=== PATIENT | male | born 1940 | race Caucasian/White ===

== ENCOUNTER 2023-09-28 12:30 | Outpatient (REF) | payer MEDICARE, SELFPAY ==
[2023-09-28 13:49] LABS: Free T3 2.15 pg/mL (2.18-3.98)
== END 2023-09-28 12:31 | disposition home or self-care (01) ==
LOC: LAB 12:30
PROVIDERS: PCP Family Medicine; Visit Provider Family Medicine
DX: E03.9 Hypothyroidism, unspecified (principal)
CPT/HCPCS: 36415; 84481

== ENCOUNTER 2024-01-20 13:55 | Outpatient (OUT) | payer MEDICARE, SELFPAY ==
--- OUTSIDE RECORDS SUMMARY | 2024-01-20 14:03 | XMS_ITS | CCD ---
Author Organization [facility] Care Team Providers Care Employee Relations Assistant Name Role Phone PHYSICIAN, DEFAULT Unavailable Unavailable PHYSICIAN, DEFAULT Unavailable Unavailable PHYSICIAN, DEFAULT Unavailable Unavailable PHYSICIAN, DEFAULT Unavailable Unavailable TASHAY ., DR ARORA Attending Unavailable HOY ., DR ARORA Primary Care Unavailable HOY ., DR ARORA Admitting Unavailable HOY ., DR ARORA Admitting Unavailable HOY ., DR ARORA Attending Unavailable HOY ., DR ARORA Consulting Unavailable HOY ., DR ARORA Primary Care Unavailable Unavailable Primary Care Provider JUDITH Wang Referring Unavailab KRISTIN Cooley Attending Unavailable Medications Current Medications Medication Drug Class(es) Dates Sig (Normalized) Sig (Original) benoxinate hydrochloride 4 mg/ml / fluorescein sodium 3 mg/ml ophthalmic solution (1 source) Diagnostic Dye Start: 11-12-2023 End: 11-12-2023 fluorescein-benoxi leslie 0.3-0.4 % 1 Drop (FLURESS) phenylephrine hydrochloride 25 mg/ml ophthalmic solution (1 source) alpha-1 Adrenergic Agonist Start: 11-12-2023 End: 11-12-2023 PHENYLephrine 2.5 % 1 Drop (AK-DILATE, YUNI-SYNEPHRINE) proparacaine hydrochloride 5 mg/ml ophthalmic solution (1 source) Local Anesthetic Start: 11-12-2023 End: 11-12-2023 proparacaine 0.5 % 1 Drop (ALCAINE) tropicamide 10 mg/ml ophthalmic solution (1 source) Anticholinergic Start: 11-12-2023 End: 11-12-2023 tropicamide 1 % 1 Drop (MYDRIACYL) Completed/Discontinued Medications Medication Drug Class(es) Dates Sig (Normalized) Sig (Original) allopurinol 300 mg oral tablet (1 source) Xanthine Oxidase Inhibitor take 1 tablet by mouth once daily allopurinol (ZYLOPRIM) 300 mg tablet Take 300 mg by mouth once daily. 0 Active Comment on above: Take 300 mg by mouth once daily. apixaban 5 mg oral tablet (1 source) Factor Xa Inhibitor apixaban (ELIQUIS) 5 mg tab(s) Take by mouth two times a day. 0 Active Comment on above: Take by mouth two ti mes a day. Aspirin (1 source) Platelet Aggregation Inhibitor, Nonsteroidal Anti-inflammatory Drug BABY ASPIRIN ORAL Take by mouth. 0 Active Comment on above: Take by mouth. citalopram 20 mg oral tablet (1 source) Serotonin Reuptake Inhibitor citalopram (CELEXA) 20 mg tablet Take by mouth once daily. 0 Active Comment on above: Take by mouth once d aily. fish,bora,flax oils-om3,6,9no1 (OMEGA 3-6-9) 1,200 mg cap (1 source) fish,bora,flax oils-om3,6,9no1 (OMEGA 3-6-9) 1,200 mg cap Take by mouth. 0 Active Comment on above: Take by mouth. glucosam-chondroiti n-diet cb25 116-100 mg cap (1 source) glucosam-chondro iti n-diet cb25 116-100 mg cap Take by mouth. 0 Active Comment on above: Take by mouth. levothyroxine sodium 0.05 mg oral tablet (1 source) l-Thyroxine Start: 11-09-2023 take 1 tablet by mouth once levothyroxine (SYNTHROID) 50 mcg tablet Take 1 tablet by mouth every afternoon. 0 11/09/2023 Active Comment on above: Take 1 tablet by rod every afternoon. liothyronine sodium 0.005 mg oral tablet (1 source) l-Triiodothyronine Start: 11-06-2023 take 2 tablets by mouth once liothyronine (CYTOMEL) 5 mcg tablet Take 2 tablets by mouth every afternoon. 0 11/06/2023 Active Comment on above: Take 2 tablets by mo ut every afternoon. lutein 40 mg oral capsule (1 source) lutein 40 mg cap Take by mouth. 0 Active Comment on above: Take by mouth. omeprazole 40 mg delayed release oral capsule (1 source) Proton Pump Inhibitor take 1 capsule by mouth once daily omeprazole (PRILOSEC) 40 mg capsule Take 40 mg by mouth once daily. 0 Active Comment on above: Take 40 mg by mouth once daily. zinc sulfate 220 mg oral capsule (1 source) take 1 capsule by mouth once daily zinc sulfate (ZINC-220) 220 mg (50 mg zinc) capsule Take 220 mg by mouth once daily. 0 Active Comment on above: Take 220 mg by mouth once daily. 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 Lida Venegas CBC AUTO DIFFon 01-20-2023 BASO # 0.0 103/ul Normal 0.0-0.1 [facility] Comment on above: Performed By: #### A 1C #### [facility] [address] [place] [address] Dr. Lida Venegas Basophils/100 WBC (Bld) 0.4 % Normal 0.2-2.0 [facility] Comment on above: Performed By: #### A 1C #### [facility] [address] [place] [address] Dr. Lida Venegas EO # 0.0 103/ul Normal 0.0-0.7 [facility] Comment on above: Performed By: #### A 1C #### [facility] [address] [place] [address] Dr. Lida Venegas Eosinophils/100 WBC (Bld) 0.3 % Critically low 0.9-7.0 [facility] Comment on above: Performed By: #### A 1C #### [facility] [address] [place] [address] Dr. Lida Venegas Erythrocyte distribution width (RBC) [Ratio] 12.8 % Normal 11.0-15.0 [facility] Comment on above: Performed By: #### A 1C #### [facility] [address] [place] [address] Dr. Lida Venegas Hematocrit (Bld) [Volume fraction] 47.6 % Normal 42.0-54.0 [facility] Comment on above: Performed By: #### A 1C #### [facility] [address] [place] [address] Dr. Lida Veneags Hemoglobin (Bld) [Mass/Vol] 15.8 g/dL Normal 14.0-18.0 [facility] Comment on above: Performed By: #### A 1C #### [facility] [address] [place] [address] Dr. Lida Venegas IG # 0.03 10e3/ul Normal 0.00-0.03 [facility] Comment on above: Performed By: #### A 1C #### [facility] [address] [place] [address] Dr. Lida Venegas IG % 0.4 % Normal 0.0-0.5 [facility] Comment on above: Performed By: #### A 1C #### [facility] [address] [place] [address] Dr. Lida Venegas LYMPH # 1.7 103/ul Normal 1.2-3.8 [facility] Comment on above: Performed By: #### A 1C #### [facility] [address] [place] [address] Dr. Lida Venegas Lymphocytes/100 WBC (Bld) 23.9 % Normal 20.5-60.0 [facility] Comment on above: Performed By: #### A 1C #### [facility] [address] [place] [address] Dr. Lida Venegas MANUAL DIFF REQ NO Normal [facility] Comment on above: Performed By: #### A 1C #### [facility] [address] [place] [address] Dr. Lida Venegas MCH (RBC) [Entitic mass] 32.4 pg Normal 25.9-34.0 [facility] Comment on above: Performed By: #### A 1C #### [facility] [address] [place] [address] Dr. Lida Venegas MCHC (RBC) [Mass/Vol] 33.2 g/dL Normal 29.9-35.2 [facility] Comment on above: Performed By: #### A 1C #### [facility] [address] [place] [address] Dr. Lida Venegas MCV (RBC) [Entitic vol] 97.5 fL Critically high 80.0-94.0 [facility] Comment on above: Performed By: #### A 1C #### [facility] [address] [place] [address] Dr. Lida Venegas MONO # 0.4 103/ul Normal 0.3-0.8 [facility] Comment on above: Performed By: #### A 1C #### [facility] [address] [place] [address] Dr. Lida Venegas Monocytes/100 WBC (Bld) 5.9 % Normal 1.7-12.0 [facility] Comment on above: Performed By: #### A 1C #### [facility] [address] [place] [address] Dr. Lida Venegas NEUT # 4.8 103/ul Normal 1.4-6.5 [facility] Comment on above: Performed By: #### A 1C #### [facility] [address] [place] [address] Dr. Lida Venegas Neutrophils/100 WBC (Bld) 69.1 % Normal 43.0-75.0 [facility] Comment on above: Performed By: #### A 1C #### [facility] [address] [address] [address] Lida Venegas Platelet mean volume (Bld) [Entitic vol] 12.6 fL Normal 9.5-13.5 [facility] Comment on above: Performed By: #### A 1C #### [facility] [address] [address] [address] Lida Venegas PLT 138 103/ul Critically low 150-450 [facility] Comment on above: Performed By: #### A 1C #### [facility] [address] [place] [address] Dr. Lida Venegas RBC 4.88 106/ul Normal 4.70-6.10 [facility] Comment on above: Performed By: #### A 1C #### [facility] [address] [place] [address] Dr. Lida Venegas WBC 7.0 103/ul Normal 4.0-11.0 [facility] Comment on above: Performed By: #### A 1C #### [facility] [address] [place] [address] Dr. Lida Venegas FREE T3on 01-20-2023 FREE T3 1.75 pg/mlL Critically low 2.18-3.98 [facility] Comment on above: Performed By: #### L IPID, BNP, FT3, T4, URIC, TSH, MG, CMP #### [facility] [address] [place] [address] Dr. Lida Venegas GLYCOHEMOGLOBIN A1Con 2022 ADA RECOMMENDATION SEE BELOW Normal [facility] Comment on above: Result Comment: ADA RECOMMENDED LIMIT 4.0 - 6.0 ADA THERAPEUTIC TARGET < 7.0 ACTION SUGGESTED > 7.0 Performed By: #### A 1C #### [facility] [address] [place] [address] Dr. Lida Venegas Glucose [Mass/Vol] 143 mg/dL Normal [facility] Comment on above: Performed By: #### A 1C #### [facility] [address] [place] [address] Dr. Lida Venegas HbA1c (Bld) [Mass fraction] 6.6 % Critically high 4.5-6.2 [facility] Comment on above: Performed By: #### A 1C #### [facility] [address] [place] [address] Dr. Lida Venegas LIPID PROFILEon 01-20-2023 CHOL-HDL RATIO NORM SEE BELOW Normal [facility] Comment on above: Result Comment: 3.3 - 4.4 LOW RISK 4.4 - 7.1 AVERAGE RISK 7.1 - 11.0 MODERATE RISK >11.0 HIGH RISK Performed By: #### L IPID, BNP, FT3, T4, URIC, TSH, MG, CMP #### [facility] [address] [place] [address] Dr. Lida Venegas Cholesterol [Mass/Vol] 252 mg/dL Critically high <=200 [facility] Comment on above: Performed By: #### L IPID, BNP, FT3, T4, URIC, TSH, MG, CMP #### [facility] [address] [place] [address] Dr. Lida Venegas Cholesterol in HDL [Mass/Vol] 57 mg/dL Normal 40-60 [facility] Comment on above: Performed By: #### L IPID, BNP, FT3, T4, URIC, TSH, MG, CMP #### [facility] [address] [place] [address] Dr. Lida Venegas Cholesterol in LDL [Mass/Vol] 171.0 mg/dL Normal [facility] Comment on above: Performed By: #### L IPID, BNP, FT3, T4, URIC, TSH, MG, CMP #### [facility] [address] [place] [address] Dr. Lida Venegas Cholesterol.total/Cho lesterol in HDL [Mass ratio] 4.4 {ratio} Normal [facility] Comment on above: Performed By: #### L IPID, BNP, FT3, T4, URIC, TSH, MG, CMP #### [facility] [address] [place] [address] Dr. Lida Venegas HDL NORMAL > or = 60 mg/dl - LOW CARDIOVASCULAR RISK <40 mg/dl - HIGH CARDIOVASCULAR RISK Normal [facility] Comment on above: Performed By: #### L IPID, BNP, FT3, T4, URIC, TSH, MG, CMP #### [facility] [address] [address] [address] Lida Venegas LDL CALC NORMAL SEE BELOW Normal [facility] Comment on above: Result Comment: <100 mg/dl OPTIMAL 100 - 129 mg/dl NEAR OR ABOVE OPTIMAL 130 - 159 mg/dl BORDERLINE HIGH 160 - 189 mg/dl HIGH >190 mg/dl VERY HIGH Performed By: #### L IPID, BNP, FT3, T4, URIC, TSH, MG, CMP #### [facility] [address] [address] [address] Lida Venegas Triglyceride [Mass/Vol] 120 mg/dL Normal <=150 [facility] Comment on above: Performed By: #### L IPID, BNP, FT3, T4, URIC, TSH, MG, CMP #### [facility] [address] [place] [address] Dr. Lida Venegas VLDL CALC 24.0 mg/dL Normal [facility] Comment on above: Performed By: #### L IPID, BNP, FT3, T4, URIC, TSH, MG, CMP #### [facility] [address] [place] [address] Dr. Lida Venegas MAGNESIUMon 01-20-2023 Magnesium [Mass/Vol] 1.7 mg/dL Critically low 1.8-2.4 [facility] Comment on above: Performed By: #### L IPID, BNP, FT3, T4, URIC, TSH, MG, CMP #### [facility] [address] [place] [address] Dr. Lida Venegas PROF 14(COMP METB)on 023 Albumin [Mass/Vol] 3.9 g/dL Normal 3.4-5.0 [facility] Comment on above: Performed By: #### L IPID, BNP, FT3, T4, URIC, TSH, MG, CMP #### [facility] [address] [place] [address] Dr. Lida Venegas Albumin/Globulin [Mass ratio] 0.9 {ratio} Normal [facility] Comment on above: Performed By: #### L IPID, BNP, FT3, T4, URIC, TSH, MG, CMP #### [facility] [address] [place] [address] Dr. Lida Venegas ALP [Catalytic activity/Vol] 72 U/L Normal 46-116 [facility] Comment on above: Performed By: #### L IPID, BNP, FT3, T4, URIC, TSH, MG, CMP #### [facility] [address] [place] [address] Dr. Lida Venegas ALT [Catalytic activity/Vol] 36 U/L Normal 16-63 [facility] Comment on above: Performed By: #### L IPID, BNP, FT3, T4, URIC, TSH, MG, CMP #### [facility] [address] [place] [address] Dr. Lida Venegas Anion gap [Moles/Vol] 11.0 mmol/L Normal [facility] Comment on above: Performed By: #### L IPID, BNP, FT3, T4, URIC, TSH, MG, CMP #### [facility] [address] [place] [address] Dr. Lida Venegas AST [Catalytic activity/Vol] 23 U/L Normal 15-37 [facility] Comment on above: Performed By: #### L IPID, BNP, FT3, T4, URIC, TSH, MG, CMP #### [facility] [address] [place] [address] Dr. Lida Venegas Bilirubin [Mass/Vol] 0.5 mg/dL Normal 0.2-1.0 [facility] Comment on above: Performed By: #### L IPID, BNP, FT3, T4, URIC, TSH, MG, CMP #### [facility] [address] [place] [address] Dr. Lida Venegas Calcium [Mass/Vol] 9.7 mg/dL Normal 8.5-10.1 [facility] Comment on above: Performed By: #### L IPID, BNP, FT3, T4, URIC, TSH, MG, CMP #### [facility] [address] [place] [address] Dr. Lida Venegas Chloride [Moles/Vol] 103 mmol/L Normal 98-107 [facility] Comment on above: Performed By: #### L IPID, BNP, FT3, T4, URIC, TSH, MG, CMP #### [facility] [address] [place] [address] Dr. Lida Venegas CO2 [Moles/Vol] 32.7 mmol/L Critically high 21.0-32.0 [facility] Comment on above: Performed By: #### L IPID, BNP, FT3, T4, URIC, TSH, MG, CMP #### [facility] [address] [place] [address] Dr. Lida Venegas Creatinine [Mass/Vol] 1.33 mg/dL Critically high 0.70-1.30 [facility] Comment on above: Performed By: #### L IPID, BNP, FT3, T4, URIC, TSH, MG, CMP #### [facility] [address] [place] [address] Dr. Lida Venegas EGFR-AF AZERBAIJANI >60 Normal >=60 [facility] Comment on above: Performed By: #### L IPID, BNP, FT3, T4, URIC, TSH, MG, CMP #### [facility] [address] [place] [address] Dr. Lida Venegas EGFR-NON AF AZERBAIJANI 51 mL/min/1.73m2 Critically low >=60 [facility] Comment on above: Performed By: #### L IPID, BNP, FT3, T4, URIC, TSH, MG, CMP #### [facility] [address] [place] [address] Dr. Lida Venegas Globulin (S) [Mass/Vol] 4.0 g/dL Normal [facility] Comment on above: Performed By: #### L IPID, BNP, FT3, T4, URIC, TSH, MG, CMP #### [facility] [address] [place] [address] Dr. Lida Venegas Glucose [Mass/Vol] 149 mg/dL Critically high 74-106 [facility] Comment on above: Performed By: #### L IPID, BNP, FT3, T4, URIC, TSH, MG, CMP #### [facility] [address] [place] [address] Dr. Lida Venegas Potassium [Moles/Vol] 4.7 mmol/L Normal 3.5-5.1 [facility] Comment on above: Performed By: #### L IPID, BNP, FT3, T4, URIC, TSH, MG, CMP #### [facility] [address] [place] [address] Dr. Lida Venegas Protein [Mass/Vol] 7.9 g/dL Normal 6.4-8.2 [facility] Comment on above: Performed By: #### L IPID, BNP, FT3, T4, URIC, TSH, MG, CMP #### [facility] [address] [place] [address] Dr. Lida Venegas Sodium [Moles/Vol] 142 mmol/L Normal 136-145 [facility] Comment on above: Performed By: #### L IPID, BNP, FT3, T4, URIC, TSH, MG, CMP #### [facility] [address] [place] [address] Dr. Lida Venegas Urea nitrogen [Mass/Vol] 20.0 mg/dL Critically high 7.0-18.0 [facility] Comment on above: Performed By: #### L IPID, BNP, FT3, T4, URIC, TSH, MG, CMP #### [facility] [address] [place] [address] Dr. Lida Venegas Urea nitrogen/Creatinine [Mass ratio] 15.0 mg/mg Normal [facility] Comment on above: Performed By: #### L IPID, BNP, FT3, T4, URIC, TSH, MG, CMP #### [facility] [address] [place] [address] Dr. Lida Venegas T4on 01-20-2023 T4 [Mass/Vol] 6.70 ug/dL Normal 4.50-12.10 [facility] Comment on above: Performed By: #### L IPID, BNP, FT3, T4, URIC, TSH, MG, CMP #### [facility] [address] [address] [address] Lida Venegas TSHon 01-20-2023 TSH 1.371 uIU/mL Normal 0.358-3.740 [facility] Comment on above: Performed By: #### L IPID, BNP, FT3, T4, URIC, TSH, MG, CMP #### [facility] [address] [address] [address] Lida Venegas URIC ACID SERUMon 01-20-2023 Urate [Mass/Vol] 0.2 mg/dL Critically low 3.5-7.2 [facility] Comment on above: Performed By: #### L IPID, BNP, FT3, T4, URIC, TSH, MG, CMP #### [facility] [address] [address] [address] Lida Venegas Encounters Encounter Date Encounter Type Care Provider Facility Start: 11-12-2023 End: 11-12-2023 ambulatory JUDITH CHOW Facility:[facility] Start: 11-12-2023 End: 11-12-2023 Patient encounter procedure Kristin Haley MD Work Phone: Ophthalmology Comment on above: Combined forms of ag e-related cataract of both eyes (Primary Dx); Insufficiency of tear film of both eyes; Anatomical narrow angle, bilateral; Hyperopia with astigmatism and presbyopia, bilateral Start: 01-20-2023 End: 01-21-[address] ULYSSES BUTT . Facility: Start: 02-12-2022 End: 03-08-[address] ULYSSES BUTT . Facility: Start: 08-16-2018 End: 08-17-2018 Patient encounter procedure DEFAULT PHYSICIAN Facility:[facility] Start: 07-26-2018 End: 07-27-2018 Patient encounter procedure DEFAULT PHYSICIAN Facility:[facility] Procedures Date Procedure Procedure Detail Performing Clinician Start: 01-20-[address] JOYCELYN BUTT . Comment on above: Performed By: #### P SASC #### [facility] [address] [address] [address] Lida Venegas Plan of Treatment Date Care Activity Detail Author Start: 11-11-2024 End: 05-05-2025 IOL BIOMETRY W/ IOL CALC OU (BOTH EYES) IOL BIOMETRY W/ IOL CALC OU (BOTH EYES) OPHT Imaging Routine Combined forms of age-related cataract of both eyes Expected: 11/11/2024, Expires: 05/05/2025 [facility] Work Phone: Comment on above: Expected: 11/11/2024 , Expires: 05/05/2025 Start: 09-07-2023 Advance Directive Discussion Advance Directive Discussion [facility] Start: 09-07-2023 Depression Assessment Depression Ass essment [facility] Start: 05-08-2023 Influenza vaccination Influenza Vacc ine (#1) [facility] Start: 2005 Pneumococcal Vaccine : 65+ (1 of 1 - PCV) Pneumococcal Vaccine: 65+ (1 of 1 - PCV) [facility] Start: 2000 RSV Vaccine (1 - 1-d ose 60+ series) RSV Vaccine (1 - 1-dose 60+ series) [facility] Start: 1990 Shingrix Vaccine (1 of 2) Shingrix Vaccine (1 of 2) [facility] Start: 1985 Diabetes Screening Diabetes Screenin g [facility] Start: 1959 Urine microalbumin profile DTaP,Tdap,Td Vaccine (1 - Tdap) [facility] Start: 1940 Covid-19 Vaccine (#1) Covid-19 Vacci ne (#1) [facility] End: 04-25-2025 CORNEAL TOPOGRAPHY PENTACAM OU (BOTH EYES) CORNEAL TOPOGRAPHY PENTACAM OU (BOTH EYES) [facility] Imaging Routine Combined forms of age-related cataract of both eyes 1 Occurrences starting 11/02/2023 until 04/25/2025 [facility] Work Phone: Comment on above: 1 Occurrences starti ng 11/02/2023 until 04/25/2025 CORNEAL TOPOGRAPHY PENTACAM OU (BOTH EYES) CORNEAL TOPOGRAPHY PENTACAM OU (BOTH EYES) [facility] Imaging Routine Combined forms of age-related cataract of both eyes 11/12/2023 12:34 PM EST [facility] Work Phone: End: 04-25-2025 OCT MACULA CIRRUS OU (BOTH EYES) OCT MACULA CIRRUS OU (BOTH EYES) [facility] Imaging Routine Combined forms of age-related cataract of both eyes 1 Occurrences starting 11/02/2023 until 04/25/2025 [facility] Work Phone: Comment on above: 1 Occurrences starti ng 11/02/2023 until 04/25/2025 OCT MACULA CIRRUS OU (BOTH EYES) OCT MACULA CIRRUS OU (BOTH EYES) [facility] Imaging Routine Combined forms of age-related cataract of both eyes 11/12/2023 12:41 PM EST [facility] Work Phone: [facility] Immunizations Immunization Date Immunization Notes Care Provider Britney donahue 07-12-2013 influenza virus vacc ine, unspecified formulation Kristin Horner MD Work Phone: [facility] Payers Date Payer Category Payer Medicare [employer] MEDICARE A [employer] MEDICARE PPO [id number] 2021-Present [phone] [address] [place] [address] PPO [id number] 1959 Medicare [id number] 1940 Unknown [id number] 1940 Unknown [id number] 1940 Unknown [id number] 1940 Unknown [id number] Unknown Social History Date Type Detail Facility [facility]: [facility] Start: 11-12-2023 Tobacco use and exposure Smoke less tobacco non-user [facility] Start: 11-12-2023 Alcohol intake Current drinke r of alcohol (finding) [facility] Start: 11-12-2023 History of Social function [facility] Start: 11-12-2023 Area Deprivation Index [facility] National Score (1-10 0), lower number is lower risk 63 [facility] Start: 11-12-2023 Alcohol Comment 1 beer a month [facility] [facility] 1940 Sex Assigned At Not on file [facility] Note 11-12-2023 Addendum Note - Haley Tripathi - 11/12/2023 4:35 PM EST Note Date & Type Note Facility 11-12-2023 Miscellaneous Notes Addended by: HALEY TRIPATHI on: 11/12/2023 04:35 PM Modules accepted: Orders documented [facility] Progress note 11-12-2023 Note Date & Type Note Facility 11-12-2023 Note HNO ID: [id number] Author: KRISTIN HALEY MD Service: ? Author Type: Physician Type: Progress Notes Filed: 11/12/2023 13:16 Note Text: The documentation for this note was completed by Ruthy Hewitt, COA acting as a scribe for Kristin HALEY MD. 11/12/2023 1:09 PM. ASSESSMENT / PLAN: 1. Combined cataract, both eyes - Offered cataract extraction by phacoemulsification and intraocular lens implant with Dr. Haley, both eyes, left eye first - Aim: plano Both eyes - Flomax/alpha-ibrahima? No - Toric candidate: No - PanOptix candidate: No - Anesthesia: Topical with MAC - Contact lens use No - History of LASIK/PRK/RK No - Discussed initiate twice daily eyelid scrubs pending U/S biometry and surgery - Comanage with Dr Chow; [facility] POD #1 Cataract Presurgical Documentation Cataract: Both eyes (OU) Current Visual Acuity Right Eye Distance CC 20/40 Left Eye Distance CC 20/30 Best Corrected Vision Right Eye 20/30 Best Corrected Vision Left Eye 20/30-2 Glare Testing: Right Eye High less than 20/400 Left Eye High less than 20/400 Visual Function: Marcelino Murillo states that the decline in vision from the cataract impedes his abilities as listed in the HPI, as well as other activities of daily living. Marcelino Murillo has confirmed that he is no longer able to function adequately on a day-to-day basis because of his current visual condition. Further, it is my medical opinion that the cataract is the primary cause, or at least a significantly contributory cause of his visual dysfunction. With uncomplicated cataract surgery and lens implantation, it is my expectation that his visual function and quality of life will improve significantly. The risks, benefits, alternatives, personnel and complications of cataract surgery with lens implantation were discussed with Marcelino Murillo in detail. These included, but are not limited to: infection, bleeding, loss of vision, and the need for additional surgery. he appeared to understand and asked that I proceed with plans for surgery. Patient acknowledges possible need for glasses after procedure. Intraocular lens options were discussed with patient. If patient was a good candidate for multifocal Intraocular lenses, risk of halos, glare, and possible need for glasses was discussed. Informed consent form signed by physician and patient. Literature regarding cataract and cataract extraction by phacoemulsification offered. Return for preadmission testing, biometry AND intraocular lens calculations prior to surgery. The [facility]. The surgeon/proceduralist and patient have discussed in detail the risk of exposure to and/or potential harm posed by the COVID-19 virus with having a surgery/procedure at this time versus the risk of delaying the surgery/procedure. It is not possible to know either the risk of delaying the surgery or procedure or chance of getting an infection with perfect accuracy, but a joint decision was made between the patient and the surgeon/proceduralist to proceed at this time with the scheduled surgery/procedure as indicated on the consent form. I have confirmed and edited as necessary the relevant HPI, ophthalmic history, ROS, and the neuro exam findings as obtained by others. I have seen and examined Marcelino Murillo. I have discussed the case and the management of this patient's care with the Resident/Fellow, if applicable. I also have reviewed and agree with the assessment and plan as stated above and agree with all of its relevant components. Kristin HALEY MD November 12, 2023 1:09 PM [facility] Progress note 11-12-2023 Note Date & Type Note Facility 11-12-2023 Note HNO ID: [id number] Author: DENISE ANGUIANO OD Service: ? Author Type: LANGUAGES AND LITERATURE INSTRUCTOR Type: Progress Notes Filed: 11/12/2023 13:16 Note Text: ASSESSMENT/PLAN: 1. Combined forms of age-related cataract of both eyes - ICD9: 366.19, ICD10: H25.813 (primary diagnosis) Pt ed. Ref by Dr. Chow. Eval with today. 2. Insufficiency of tear film of both eyes - ICD9: 375.15, ICD10: H04.123 Increase Systane to BID+ prn OU. Add hot compresses daily. 3. Anatomical narrow angle, bilateral - ICD9: 365.02, ICD10: H40.033 Narrow but not occludable. 4. Hyperopia with astigmatism and presbyopia, bilateral - ICD9: 367.0, 367.20, 367.4, ICD10: H52.03, H52.203, H52.4 Denise Anguiano, OD I have confirmed and edited as necessary the relevant ophthalmic history, ROS, and the exam findings as obtained by others. I have seen and examined this patient. I have discussed the case and the management of this patient's care with the resident or fellow as appropriate. I also have reviewed and agree with the assessment and plan as stated above and agree with all of its relevant components. Denise Anguiano, OD November 12, 2023 12:55 PM [facility] History of Present illness Narrative 11-12-2023 Kristin Haley V, MD - 11/12/2023 1:09 PM Denise Herrera OD - 11/12/2023 12:55 PM EST Note Date & Type Note Facility 11-12-2023 History of Presen t illness Narrative The documentation for this note was completed by Ruthy Hewitt, COA acting as a scribe for Kristin HALEY MD. 11/12/2023 1:09 PM. ASSESSMENT / PLAN: 1. Combined cataract, both eyes - Offered cataract extraction by phacoemulsification and intraocular lens implant with Dr. Haley, both eyes, left eye first - Aim: plano Both eyes - Flomax/alpha-ibrahima? No - Toric candidate: No - PanOptix candidate: No - Anesthesia: Topical with MAC - Contact lens use No - History of LASIK/PRK/RK No - Discussed initiate twice daily eyelid scrubs pending U/S biometry and surgery - Comanage with Dr Chow; [facility] POD #1 Cataract Presurgical Documentation Cataract: Both eyes (OU) Current Visual Acuity Right Eye Distance CC 20/40 Left Eye Distance CC 20/30 Best Corrected Vision Right Eye 20/30 Best Corrected Vision Left Eye 20/30-2 Glare Testing: Right Eye High less than 20/400 Left Eye High less than 20/400 Visual Function: Marcelino Murillo states that the decline in vision from the cataract impedes his abilities as listed in the HPI, as well as other activities of daily living. Marcelino Murillo has confirmed that he is no longer able to function adequately on a day-to-day basis because of his current visual condition. Further, it is my medical opinion that the cataract is the primary cause, or at least a significantly contributory cause of his visual dysfunction. With uncomplicated cataract surgery and lens implantation, it is my expectation that his visual function and quality of life will improve significantly. The risks, benefits, alternatives, personnel and complications of cataract surgery with lens implantation were discussed with Marcelino Murillo in detail. These included, but are not limited to: infection, bleeding, loss of vision, and the need for additional surgery. he appeared to understand and asked that I proceed with plans for surgery. Patient acknowledges possible need for glasses after procedure. Intraocular lens options were discussed with patient. If patient was a good candidate for multifocal Intraocular lenses, risk of halos, glare, and possible need for glasses was discussed. Informed consent form signed by physician and patient. Literature regarding cataract and cataract extraction by phacoemulsification offered. Return for preadmission testing, biometry & intraocular lens calculations prior to surgery. The patient was [facility]. The surgeon/proceduralist and patient have discussed in detail the risk of exposure to and/or potential harm posed by the COVID-19 virus with having a surgery/procedure at this time versus the risk of delaying the surgery/procedure. It is not possible to know either the risk of delaying the surgery or procedure or chance of getting an infection with perfect accuracy, but a joint decision was made between the patient and the surgeon/proceduralist to proceed at this time with the scheduled surgery/procedure as indicated on the consent form. I have confirmed and edited as necessary the relevant HPI, ophthalmic history, ROS, and the neuro exam findings as obtained by others. I have seen and examined Marcelino Murillo. I have discussed the case and the management of this patient's care with the Resident/Fellow, if applicable. I also have reviewed and agree with the assessment and plan as stated above and agree with all of its relevant components. Kristin HALEY MD November 12, 2023 1:09 PM ASSESSMENT/PLAN: 1. Combined forms of age-related cataract of both eyes - ICD9: 366.19, ICD10: H25.813 (primary diagnosis) Pt ed. Ref by Dr. Chow. Jeremias with today. 2. Insufficiency of tear film of both eyes - ICD9: 375.15, ICD10: H04.123 Increase Systane to BID+ prn OU. Add hot compresses daily. 3. Anatomical narrow angle, bilateral - ICD9: 365.02, ICD10: H40.033 Narrow but not occludable. 4. Hyperopia with astigmatism and presbyopia, bilateral - ICD9: 367.0, 367.20, 367.4, ICD10: H52.03, H52.203, H52.4 Denise Anguiano, OD I have confirmed and edited as necessary the relevant ophthalmic history, ROS, and the exam findings as obtained by others. I have seen and examined this patient. I have discussed the case and the management of this patient's care with the resident or fellow as appropriate. I also have reviewed and agree with the assessment and plan as stated above and agree with all of its relevant components. 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, bilateral Hyperopia with astigmatism and presbyopia, bilateral documented in this encounter [facility] Summary Purpose Family History No Family History Records FoundNo Family History Records FoundNo Family History Records Found Advance Directives No Advanced Directives Records FoundNo Advanced Directives Records FoundNo Advanced Directives Records Found Additional Source Comments (unrecognized sect ion and content) No Status Records FoundNo Status Records FoundNo Status Records Found INFORMATION SOURCE (unrecogn ized section and content) DATE CREATED AUTHOR 08/18/2018 [facility] DATE CREATED AUTHOR AUTHOR'S ORGANIZ ATION 01/21/2023 [facility] DATE CREATED AUTHOR AUTHOR'S ORGANIZ ATION 11/13/2023 [facility] Source Comments (unrecognize d section and content) In the event this informatio n is protected by the Federal Confidentiality of Alcohol and Drug Abuse Patient Records regulations: The Federal rules restrict any use of the information to criminally investigate or prosecute any alcohol or drug abuse patient[facility] Reason for Visit (unrecogniz ed section and content) Reason Comments Cataract Evaluation Active Administered Medications - up to 3 most recent administrations Administered Medications (un recognized section and content) Medication Order MAR Action Action Date Dose Rate Site PHENYLephrine 2.5 % 1 Drop (AK-DILATE, YUNI-SYNEPHRINE) 1 Drop, BOTH EYES, DIRECTED, Starting on Thu11/12/23 at 1200, Until Mary 11/12/23 at 2359, Administer for dilation PROTECT FROM LIGHT, [facility] MED ORDERS Given 11/12/2023 12:00 PM EST 1 Drop proparacaine 0.5 % 1 Drop (ALCAINE) 1 Drop, BOTH EYES, DIRECTED, Starting on Mary 11/12/23 at 1200, Until Mary 11/12/23 at 2359, Administer for pneumo tonometry, tonopen tonometry, or pachymetry. In the event of a proparacaine shortage, administer 1 drop of tetracaine 0.5% ophthalmic drops into both eyes as directed for pneumo tonometry, tonopen tonometry, or pachymetry, [facility]INIC MED ORDERS Given 11/12/2023 12:00 PM EST 1 Drop tropicamide 1 % 1 Drop (MYDRIACYL) 1 Drop, BOTH EYES, DIRECTED, Starting on Mary 11/12/23 at 1200, Until Mary 11/12/23 at 2359, Administer for dilation, [facility] CLINIC MED ORDERS Given 11/12/2023 12:00 PM EST 1 Drop FOR RECORDS PERTAINING TO PATIENTS WHO ARE OR HAVE BEEN ENROLLED IN A CHEMICAL DEPENDENCY/SUBSTANCEABUSE PROGRAM, SOME INFORMATION MAY BE OMITTED. This clinical summary was aggregated from multiple sources. Caution should be exercised in using it in the provision of clinical care. This summary normalizes information from multiple sources, and as a consequence, information in this document may materially change the coding, format and clinical context of patient data. In addition, data may be omitted in some cases. CLINICAL DECISIONS SHOULD BE BASED ON THE PRIMARY CLINICAL RECORDS. [facility] [employer] [facility]. provides no warranty or guarantee of the accuracy or completeness of information in this document.
[2024-01-20 15:08] LABS: Basophils Percent Auto 0.3 % (0.2-2.0); Eosinophils Absolute Auto 0.2 10^3/uL (0.0-0.7); Eosinophils Percent Auto 2.7 % (0.9-7.0); Hematocrit 46.3 % (42.0-54.0); Hemoglobin 15.3 g/dL (14.0-18.0); Immature Granulocytes Abs Auto 0.01 10^3/uL (0.00-0.03); Immature Granulocytes Pct Auto 0.2 % (0.0-0.5); Lymphocytes Absolute Auto 1.9 10^3/uL (1.2-3.8); Lymphocytes Percent Auto 31.6 % (20.5-60.0); Mean Corpuscular Hemoglobin 32.6 pg (25.9-34.0); Mean Corpuscular Volume 98.5 fL (80.0-94.0); Monocytes Absolute Auto 0.6 10^3/uL (0.3-0.8); Monocytes Percent Auto 9.7 % (1.7-12.0); Neutrophils Absolute Auto 3.3 10^3/uL (1.4-6.5); Neutrophils Percent Auto 55.5 % (43.0-75.0); Platelet Count 140 10^3/uL (150-450); Red Cell Distribution Width 13.3 % (11.0-15.0)
[2024-01-20 15:28] LABS: Estimated Average Glucose 146 mg/dL; Glycohemoglobin A1C 6.7 % (4.5-6.2)
[2024-01-20 15:35] LABS: Alanine Aminotransferase 51 U/L (16-63); Albumin Level 3.9 g/dL (3.4-5.0); Alkaline Phosphatase 89 U/L (46-116); Anion Gap 12.3; Aspartate Amino Transferase 38 U/L (15-37); BUN Creatinine Ratio 17.1; Bilirubin Total 0.8 mg/dL (0.2-1.0); Calcium 10.2 mg/dL (8.5-10.1); Carbon Dioxide 31.1 mmol/L (21.0-32.0); Chloride 102 mmol/L (98-107); Chol HDL Ratio 5.8; Cholesterol 273 mg/dL (<=200); Estimated GFR (African America >60 (>=60); Estimated GFR (Non-African Ame 56 (>=60); Free T3 3.37 pg/mL (2.18-3.98); Glucose 152 mg/dL (74-106); HDL Cholesterol 47 mg/dL (40-60); Potassium 4.4 mmol/L (3.5-5.1); Sodium 141 mmol/L (136-145); Thyroid Stimulating Hormone 0.166 uIU/mL (0.358-3.740); Total Protein 7.9 g/dL (6.4-8.2); Triglycerides 164 mg/dL (<=150); VLDL CHOLESTEROL 32.8 mg/dL
== END 2024-01-20 13:56 | disposition home or self-care (01) ==
LOC: LAB 13:58
PROVIDERS: PCP Family Medicine; Visit Provider Family Medicine
DX: E03.9 Hypothyroidism, unspecified (principal); I10 Essential (primary) hypertension; I48.0 Paroxysmal atrial fibrillation; E78.00 Pure hypercholesterolemia, unspecified; R73.09 Other abnormal glucose; D64.9 Anemia, unspecified; E55.9 Vitamin D deficiency, unspecified
CPT/HCPCS: 36415; 80053; 80061; 82306; 83036; 83540; 84436; 84443; 84481; 85025

== ENCOUNTER 2024-02-10 07:55 | Outpatient (REF) | payer MEDICARE, SELFPAY ==
--- OUTSIDE RECORDS SUMMARY | 2024-02-10 08:07 | XMS_ITS | CCD ---
Author Organization [facility] Care Team Providers Care Electrical Systems Engineer Name Role Phone PHYSICIAN, DEFAULT Unavailable Unavailable PHYSICIAN, DEFAULT Unavailable Unavailable PHYSICIAN, DEFAULT Unavailable Unavailable PHYSICIAN, DEFAULT Unavailable Unavailable DAQUAN ., DR ARORA Attending Unavailable DAQUAN ., DR ARORA Primary Care Unavailable TASHAY ., DR ARORA Admitting Unavailable DAQUAN ., DR ARORA Admitting Unavailable HOY ., DR ARORA Attending Unavailable HOY ., DR ARORA Consulting Unavailable DAQUAN ., DR ARORA Primary Care Unavailable Unavailable Primary Care Provider UnavailULYSSES Bender Primary Care Unavailable KRISTIN HALEY Referring Unavailable JUDITH CHOW Referring Unavailab KRISTIN Cooley Attending Unavailable Ulysses Glover MD Primary Care Provider [phone] Medications Current Medications Medication Drug Class(es) Dates Sig (Normalized) Sig (Original) allopurinol 300 mg oral tablet (3 sources) Xanthine Oxidase Inhibitor take 1 tablet by mouth once daily allopurinol (ZYLOPRIM) 300 mg tablet Take 300 mg by mouth once daily. 0 Active Comment on above: Take 300 mg by mouth once daily. apixaban 5 mg oral tablet (3 sources) Factor Xa Inhibitor apixaban (EL IQUIS) 5 mg tab(s) Take by mouth two times a day. 0 Active Comment on above: Take by mouth two ti mes a day. Aspirin (3 sources) Platelet Aggregation Inhibitor, Nonsteroidal Anti-inflammatory Drug BABY ASPIRIN ORAL Take by mouth. 0 Active Comment on above: Take by mouth. benoxinate hydrochloride 4 mg/ml / fluorescein sodium 3 mg/ml ophthalmic solution (1 source) Diagnostic Dye Start: 11-12-2023 End: 11-12-2023 fluorescein-benoxi leslie 0.3-0.4 % 1 Drop (FLURESS) fish,bora,flax oils-om3,6,9no1 (OMEGA 3-6-9) 1,200 mg cap (3 sources) fish,bora,flax oils-om3,6,9no1 (OMEGA 3-6-9) 1,200 mg cap Take by mouth. 0 Active Comment on above: Take by mouth. glucosam-chondroiti n-diet cb25 116-100 mg cap (3 sources) glucosam-chondro it in-diet cb25 116-100 mg cap Take by mouth. 0 Active Comment on above: Take by mouth. levothyroxine sodium 0.05 mg oral tablet (3 sources) l-Thyroxine Start: 11-09-2023 take 1 tablet by mouth once levothyroxine (SYNTHROID) 50 mcg tablet Take 1 tablet by mouth every afternoon. 0 11/09/2023 Active Comment on above: Take 1 tablet by rod th every afternoon. liothyronine sodium 0.005 mg oral tablet (3 sources) l-Triiodothyronine Start: 11-06-2023 take 2 tablets by mouth once liothyronine (CYTOMEL) 5 mcg tablet Take 2 tablets by mouth every afternoon. 0 11/06/2023 Active Comment on above: Take 2 tablets by mo ut every afternoon. lutein 40 mg oral capsule (3 sources) lutein 40 mg cap Take by mouth. 0 Active Comment on above: Take by mouth. 24 hr memantine hydrochloride 14 mg extended release oral capsule (1 source) I-jmdcvo-W-aspartate Receptor Antagonist take 2 capsules by mouth once daily memantine XR (NAMENDA XR) 14 mg CSpX capsule Take 28 mg by mouth once daily. 0 Active omeprazole 40 mg delayed release oral capsule (3 sources) Proton Pump Inhibitor take 1 capsule by mouth once daily omeprazole (PRILOSEC) 40 mg capsule Take 40 mg by mouth once daily. 0 Active Comment on above: Take 40 mg by mouth once daily. phenylephrine hydrochloride 25 mg/ml ophthalmic solution (1 source) alpha-1 Adrenergic Agonist Start: 11-12-2023 End: 11-12-2023 PHENYLephrine 2.5 % 1 Drop (AK-DILATE, YUNI-SYNEPHRINE) proparacaine hydrochloride 5 mg/ml ophthalmic solution (1 source) Local Anesthetic Start: 11-12-2023 End: 11-12-2023 proparacaine 0.5 % 1 Drop (ALCAINE) psyllium seed/bran (PSYLLIUM-BRAN ORAL) (1 source) psyllium seed/br an (PSYLLIUM-BRAN ORAL) Take by mouth. 0 Active rivastigmine 3 mg oral capsule (2 sources) Start: 12-28-2023 take 1 capsule by mouth every twelve hours rivastigmine tartrate (EXELON) 3 mg capsule Take 1 capsule by mouth every 12 hours. 0 12/28/2023 Active tropicamide 10 mg/ml ophthalmic solution (1 source) Anticholinergic Start: 11-12-2023 End: 11-12-2023 tropicamide 1 % 1 Drop (MYDRIACYL) zinc sulfate 220 mg oral capsule (3 sources) take 1 capsule by mouth once daily zinc sulfate (ZINC-220) 220 mg (50 mg zinc) capsule Take 220 mg by mouth once daily. 0 Active Comment on above: Take 220 mg by mouth once daily. Completed/Discontinued Medications Medication Drug Class(es) Dates Sig (Normalized) Sig (Original) citalopram 20 mg oral tablet (2 sources) Serotonin Reuptake Inhibitor End: 02-04-2024 citalopram (CELEXA) 20 mg tablet Take by mouth once daily. 0 02/04/2024 Discontinued Comment on above: Take by mouth once d aily. Problems Active Problems Problem Classification Problem Date Documented Date Episodic/Chronic Blindness and vision defects (1 source) Bilateral hyperopia of eyes; Translations: [Hypermetropia, bilateral] 11-12-2023 Episodic Cardiac dysrhythmias (3 sources) Paroxysmal atrial fibrillation; Translations: [Paroxysmal atrial fibrillation] Onset: 02-04-2024 02-04-2024 Chronic Cataract (3 sources) Bilateral senile combined form cataracts of eyes; Translations: [Combined forms of age-related cataract, bilateral] Onset: 11-12-2023 11-02-2023 Chronic Esophageal disorders (3 sources) Gastroesophageal reflux disease; Translations: [Gastro-esophageal reflux disease without esophagitis] Onset: 02-04-2024 02-04-2024 Chronic Glaucoma (1 source) Narrow angle; Translations: [Anatomical narrow angle, bilateral] 11-12-2023 Chronic Other eye disorders (1 source) Tear film insufficiency of bilateral eyes; Translations: [Dry eye syndrome of bilateral lacrimal glands] 11-12-2023 Episodic Thyroid disorders (3 sources) Hypothyroidism; Translations: [Other specified hypothyroidism] Onset: 02-04-2024 02-04-2024 Chronic Past or Other Problems Problem Classification Problem Date Documented Da te Episodic/Chronic Malaise and fatigue (4 sources) Weakness; Translations: [WEAKNESS] Onset: 02-12-2022 Episodic Results Test Name Value Interpretation Reference Range Facil ity BNPon 01-20-2023 Natriuretic peptide B (Bld) [Mass/Vol] 1564.0 pg/mL Normal <=1,800.0 [facility] Comment on above: Performed By: #### L IPID, BNP, FT3, T4, URIC, TSH, MG, CMP #### [facility] [address] [place] [address] Dr. Lida Venegas CBC AUTO DIFFon 01-20-2023 BASO # 0.0 103/ul Normal 0.0-0.1 [facility] Comment on above: Performed By: #### A 1C #### [facility] [address] [place] [address] Dr. Lida Venegas Basophils/100 WBC (Bld) 0.4 % Normal 0.2-2.0 [facility] Comment on above: Performed By: #### A 1C #### [facility] [address] [place] [address] Dr. Lida Venegas EO # 0.0 103/ul Normal 0.0-0.7 [facility] Comment on above: Performed By: #### A 1C #### [facility] [address] [place] [address] Dr. Lida Venegas Eosinophils/100 WBC (Bld) 0.3 % Critically low 0.9-7.0 [facility] Comment on above: Performed By: #### A 1C #### [facility] [address] [place] [address] Dr. Lida Venegas Erythrocyte distribution width (RBC) [Ratio] 12.8 % Normal 11.0-15.0 [facility] Comment on above: Performed By: #### A 1C #### [facility] [address] [place] [address] Dr. Lida Venegas Hematocrit (Bld) [Volume fraction] 47.6 % Normal 42.0-54.0 [facility] Comment on above: Performed By: #### A 1C #### [facility] [address] [address] [address] Lida Venegas Hemoglobin (Bld) [Mass/Vol] 15.8 g/dL Normal 14.0-18.0 [facility] Comment on above: Performed By: #### A 1C #### [facility] [address] [address] [address] Lida Venegas IG # 0.03 10e3/ul Normal 0.00-0.03 [facility] Comment on above: Performed By: #### A 1C #### [facility] [address] [place] [address] Dr. Lida Venegas IG % 0.4 % Normal 0.0-0.5 [facility] Comment on above: Performed By: #### A 1C #### [facility] [address] [place] [address] Dr. Lida Venegas LYMPH # 1.7 103/ul Normal 1.2-3.8 [facility] Comment on above: Performed By: #### A 1C #### [facility] [address] [place] [address] Dr. Lida Venegas Lymphocytes/100 WBC (Bld) 23.9 % Normal 20.5-60.0 [facility] Comment on above: Performed By: #### A 1C #### [facility] [address] [place] [address] Dr. Lida Venegas MANUAL DIFF REQ NO Normal [facility] Comment on above: Performed By: #### A 1C #### [facility] [address] [place] [address] Dr. Lida Venegas MCH (RBC) [Entitic mass] 32.4 pg Normal 25.9-34.0 [facility] Comment on above: Performed By: #### A 1C #### [facility] [address] [place] [address] Dr. Lida Venegas MCHC (RBC) [Mass/Vol] 33.2 g/dL Normal 29.9-35.2 [facility] Comment on above: Performed By: #### A 1C #### [facility] [address] [address] [address] Lida Venegas MCV (RBC) [Entitic vol] 97.5 fL Critically high 80.0-94.0 [facility] Comment on above: Performed By: #### A 1C #### [facility] [address] [address] [address] Lida Venegas MONO # 0.4 103/ul Normal 0.3-0.8 [facility] Comment on above: Performed By: #### A 1C #### [facility] [address] [address] [address] Lida Venegas Monocytes/100 WBC (Bld) 5.9 % Normal 1.7-12.0 [facility] Comment on above: Performed By: #### A 1C #### [facility] [address] [place] [address] Dr. Lida Venegas NEUT # 4.8 103/ul Normal 1.4-6.5 [facility] Comment on above: Performed By: #### A 1C #### [facility] [address] [place] [address] Dr. Lida Venegas Neutrophils/100 WBC (Bld) 69.1 % Normal 43.0-75.0 [facility] Comment on above: Performed By: #### A 1C #### [facility] [address] [place] [address] Dr. Lida Venegas Platelet mean volume (Bld) [Entitic vol] 12.6 fL Normal 9.5-13.5 [facility] Comment on above: Performed By: #### A 1C #### [facility] [address] [place] [address] Dr. Lida Venegas PLT 138 103/ul Critically low 150-450 [facility] Comment on above: Performed By: #### A 1C #### [facility] [address] [place] [address] Dr. Lida Venegas RBC 4.88 106/ul Normal 4.70-6.10 [facility] Comment on above: Performed By: #### A 1C #### [facility] [address] [address] [address] Lida Venegas WBC 7.0 103/ul Normal 4.0-11.0 [facility] Comment on above: Performed By: #### A 1C #### [facility] [address] [address] [address] Lida Venegas FREE T3on 01-20-2023 FREE T3 1.75 pg/mlL Critically low 2.18-3.98 [facility] Comment on above: Performed By: #### L IPID, BNP, FT3, T4, URIC, TSH, MG, CMP #### [facility] [address] [address] [address] Lida Venegas GLYCOHEMOGLOBIN A1Con 2022 ADA RECOMMENDATION SEE BELOW Normal [facility] Comment on above: Result Comment: ADA RECOMMENDED LIMIT 4.0 - 6.0 ADA THERAPEUTIC TARGET < 7.0 ACTION SUGGESTED > 7.0 Performed By: #### A 1C #### [facility] [address] [address] [address] Lida Venegas Glucose [Mass/Vol] 143 mg/dL Normal [facility] Comment on above: Performed By: #### A 1C #### [facility] [address] [address] [address] Lida Venegas HbA1c (Bld) [Mass fraction] 6.6 % Critically high 4.5-6.2 [facility] Comment on above: Performed By: #### A 1C #### [facility] [address] [address] [address] Lida Venegas LIPID PROFILEon 01-20-2023 CHOL-HDL RATIO NORM SEE BELOW Normal [facility] Comment on above: Result Comment: 3.3 - 4.4 LOW RISK 4.4 - 7.1 AVERAGE RISK 7.1 - 11.0 MODERATE RISK >11.0 HIGH RISK Performed By: #### L IPID, BNP, FT3, T4, URIC, TSH, MG, CMP #### [facility] [address] [address] [address] Lida Venegas Cholesterol [Mass/Vol] 252 mg/dL Critically high <=200 [facility] Comment on above: Performed By: #### L IPID, BNP, FT3, T4, URIC, TSH, MG, CMP #### [facility] [address] [address] [address] Lida Venegas Cholesterol in HDL [Mass/Vol] 57 mg/dL Normal 40-60 [facility] Comment on above: Performed By: #### L IPID, BNP, FT3, T4, URIC, TSH, MG, CMP #### [facility] [address] [address] [address] Lida Venegas Cholesterol in LDL [Mass/Vol] 171.0 mg/dL Normal [facility] Comment on above: Performed By: #### L IPID, BNP, FT3, T4, URIC, TSH, MG, CMP #### [facility] [address] [address] [address] Lida Venegas Cholesterol.total/Cho lesterol in HDL [Mass ratio] 4.4 {ratio} Normal [facility] Comment on above: Performed By: #### L IPID, BNP, FT3, T4, URIC, TSH, MG, CMP #### [facility] [address] [address] [address] Lida Venegas HDL NORMAL > or = 60 mg/dl - LOW CARDIOVASCULAR RISK <40 mg/dl - HIGH CARDIOVASCULAR RISK Normal [facility] Comment on above: Performed By: #### L IPID, BNP, FT3, T4, URIC, TSH, MG, CMP #### [facility] [address] [address] [address] Lida Venegas LDL CALC NORMAL SEE BELOW Normal [facility] Comment on above: Result Comment: <100 mg/dl OPTIMAL 100 - 129 mg/dl NEAR OR ABOVE OPTIMAL 130 - 159 mg/dl BORDERLINE HIGH 160 - 189 mg/dl HIGH >190 mg/dl VERY HIGH Performed By: #### L IPID, BNP, FT3, T4, URIC, TSH, MG, CMP #### [facility] [address] [address] [address] Lida Venegas Triglyceride [Mass/Vol] 120 mg/dL Normal <=150 [facility] Comment on above: Performed By: #### L IPID, BNP, FT3, T4, URIC, TSH, MG, CMP #### [facility] [address] [address] [address] Lida Venegas VLDL CALC 24.0 mg/dL Normal [facility] Comment on above: Performed By: #### L IPID, BNP, FT3, T4, URIC, TSH, MG, CMP #### [facility] [address] [place] [address] Dr. Lida Venegas MAGNESIUMon 01-20-2023 Magnesium [Mass/Vol] 1.7 mg/dL Critically low 1.8-2.4 [facility] Comment on above: Performed By: #### L IPID, BNP, FT3, T4, URIC, TSH, MG, CMP #### [facility] [address] [place] [address] Dr. Lida Venegas PROF 14(COMP METB)on 023 Albumin [Mass/Vol] 3.9 g/dL Normal 3.4-5.[address] [facility] Comment on above: Performed By: #### L IPID, BNP, FT3, T4, URIC, TSH, MG, CMP #### [facility] [address] [place] [address] Dr. Lida Venegas Albumin/Globulin [Mass ratio] 0.9 {ratio} Normal [facility] Comment on above: Performed By: #### L IPID, BNP, FT3, T4, URIC, TSH, MG, CMP #### [facility] [address] [place] [address] Dr. Lida Venegas ALP [Catalytic activity/Vol] 72 U/L Normal 46-116 [facility] Comment on above: Performed By: #### L IPID, BNP, FT3, T4, URIC, TSH, MG, CMP #### [facility] [address] [place] [address] Dr. Lida Venegas ALT [Catalytic activity/Vol] 36 U/L Normal 16-63 [facility] Comment on above: Performed By: #### L IPID, BNP, FT3, T4, URIC, TSH, MG, CMP #### [facility] [address] [place] [address] Dr. Lida Venegas Anion gap [Moles/Vol] 11.0 mmol/L Normal [facility] Comment on above: Performed By: #### L IPID, BNP, FT3, T4, URIC, TSH, MG, CMP #### [facility] [address] [place] [address] Dr. Lida Venegas AST [Catalytic activity/Vol] 23 U/L Normal 15-37 [facility] Comment on above: Performed By: #### L IPID, BNP, FT3, T4, URIC, TSH, MG, CMP #### [facility] [address] [place] [address] Dr. Lida Venegas Bilirubin [Mass/Vol] 0.5 mg/dL Normal 0.2-1.0 [facility] Comment on above: Performed By: #### L IPID, BNP, FT3, T4, URIC, TSH, MG, CMP #### [facility] [address] [place] [address] Dr. Lida Venegas Calcium [Mass/Vol] 9.7 mg/dL Normal 8.5-10.[address] [facility] Comment on above: Performed By: #### L IPID, BNP, FT3, T4, URIC, TSH, MG, CMP #### [facility] [address] [place] [address] Dr. Lida Venegas Chloride [Moles/Vol] 103 mmol/L Normal 98-107 [facility] Comment on above: Performed By: #### L IPID, BNP, FT3, T4, URIC, TSH, MG, CMP #### [facility] [address] [place] [address] Dr. Lida Venegas CO2 [Moles/Vol] 32.7 mmol/L Critically high 21.0-32.0 [facility] Comment on above: Performed By: #### L IPID, BNP, FT3, T4, URIC, TSH, MG, CMP #### [facility] [address] [place] [address] Dr. Lida Venegas Creatinine [Mass/Vol] 1.33 mg/dL Critically high 0.70-1.30 [facility] Comment on above: Performed By: #### L IPID, BNP, FT3, T4, URIC, TSH, MG, CMP #### [facility] [address] [place] [address] Dr. Lida Venegas EGFR-AF ECUADOREAN >60 Normal >=60 [facility] Comment on above: Performed By: #### L IPID, BNP, FT3, T4, URIC, TSH, MG, CMP #### [facility] [address] [place] [address] Dr. Lida Venegas EGFR-NON AF ECUADOREAN 51 mL/min/1.73m2 Critically low >=60 [facility] Comment on above: Performed By: #### L IPID, BNP, FT3, T4, URIC, TSH, MG, CMP #### [facility] [address] [place] [address] Dr. Lida Venegas Globulin (S) [Mass/Vol] 4.0 g/dL Normal [facility] Comment on above: Performed By: #### L IPID, BNP, FT3, T4, URIC, TSH, MG, CMP #### [facility] [address] [place] [address] Dr. Lida Venegas Glucose [Mass/Vol] 149 mg/dL Critically high 74-106 T [facility] Comment on above: Performed By: #### L IPID, BNP, FT3, T4, URIC, TSH, MG, CMP #### [facility] [address] [place] [address] Dr. Lida Venegas Potassium [Moles/Vol] 4.7 mmol/L Normal 3.5-5.1 [facility] Comment on above: Performed By: #### L IPID, BNP, FT3, T4, URIC, TSH, MG, CMP #### [facility] [address] [place] [address] Dr. Lida Venegas Protein [Mass/Vol] 7.9 g/dL Normal 6.4-8.[address] [facility] Comment on above: Performed By: #### L IPID, BNP, FT3, T4, URIC, TSH, MG, CMP #### [facility] [address] [place] [address] Dr. Lida Venegas Sodium [Moles/Vol] 142 mmol/L Normal 136-[address] [facility] Comment on above: Performed By: #### L IPID, BNP, FT3, T4, URIC, TSH, MG, CMP #### [facility] [address] [place] [address] Dr. Ldia Venegas Urea nitrogen [Mass/Vol] 20.0 mg/dL Critically high 7.0-18.0 [facility] Comment on above: Performed By: #### L IPID, BNP, FT3, T4, URIC, TSH, MG, CMP #### [facility] [address] [place] [address] Dr. Lida Venegas Urea nitrogen/Creatinine [Mass ratio] 15.0 mg/mg Normal [facility] Comment on above: Performed By: #### L IPID, BNP, FT3, T4, URIC, TSH, MG, CMP #### [facility] [address] [place] [address] Dr. Lida Venegas T4on 01-20-2023 T4 [Mass/Vol] 6.70 ug/dL Normal 4.50-12.10 [facility] Comment on above: Performed By: #### L IPID, BNP, FT3, T4, URIC, TSH, MG, CMP #### [facility] [address] [place] [address] Dr. Lida Venegas TSHon 01-20-2023 TSH 1.371 uIU/mL Normal 0.358-3.740 [facility] Comment on above: Performed By: #### L IPID, BNP, FT3, T4, URIC, TSH, MG, CMP #### [facility] [address] [place] [address] Dr. Lida Venegas URIC ACID SERUMon 01-20-2023 Urate [Mass/Vol] 0.2 mg/dL Critically low 3.5-7.2 [facility] Comment on above: Performed By: #### L IPID, BNP, FT3, T4, URIC, TSH, MG, CMP #### [facility] [address] [place] [address] Dr. Lida Venegas Vital Signs Date Time Vital Sign Value Performing Clinician Travis carlton 02-04-2024 13:07-0400 Body height 188 cm Pacc 1 Work Phone: [facility] 02-04-2024 13:07-0400 Body mass index (BMI) [Ratio] 28.02 kg/m2 Pacc 1 Work Phone: [facility] 02-04-2024 13:07-0400 Body temperature 97.5 [degF] Pacc 1 Work Phone: [facility] 02-04-2024 13:07-0400 Body weight 99 kg Pacc 1 Work Phone: [facility] 02-04-2024 13:07-0400 Diastolic blood pressure 81 mm[Hg] Pacc 1 Work Phone: [facility] 02-04-2024 13:07-0400 Heart rate 82 /min Pacc 1 Work Phone: [facility] 02-04-2024 13:07-0400 Respiratory rate 14 /min Pacc 1 Work Phone: [facility] 02-04-2024 13:07-0400 SaO2% (BldA) [Mass fraction] 97 % Pacc 1 Work Phone: [facility] 02-04-2024 13:07-0400 Systolic blood pressure 148 mm[Hg] Pacc 1 Work Phone: [facility] Encounters Encounter Date Encounter Type Care Provider Facility Start: 02-04-2024 End: 02-04-2024 Patient encounter procedure [facility] Work Phone: Ophthalmology Comment on above: Combined forms of ag e-related cataract of both eyes Start: 02-04-2024 End: 02-04-2024 Admission to establishment [facility] Work Phone: Pre Anesthesia Start: 02-04-2024 End: 02-04-2024 Anesthesia consultation [facility] Work Phone: Pre Anesthesia Comment on above: Pre-op evaluation (P rimary Dx); Other specified hypothyroidism; Gastroesophageal reflux disease, unspecified whether esophagitis present; Paroxysmal atrial fibrillation (HCC) Start: 02-04-2024 End: 02-04-2024 Preprocedural examination done [facility] Jason Aguila Work Phone: [facility] Work Phone: Start: 01-20-2024 End: 01-20-2024 ambulatory ULYSSES GLOVER Facility:[facility] Start: 11-12-2023 End: 11-12-2023 ambulatory JUDITH CHOW Facility:[facility] Start: 11-12-2023 End: 11-12-2023 Patient encounter procedure Kristin Haley MD Work Phone: Ophthalmology Comment on above: Combined forms of ag e-related cataract of both eyes (Primary Dx); Insufficiency of tear film of both eyes; Anatomical narrow angle, bilateral; Hyperopia with astigmatism and presbyopia, bilateral Start: 01-20-2023 End: 01-21-[address] ULYSSES GLOVER . Facility: Start: 02-12-2022 End: 03-08-[address] ULYSSES GLOVER . Facility: Start: 08-16-2018 End: 08-17-2018 Patient encounter procedure DEFAULT PHYSICIAN Facility:[facility] Start: 07-26-2018 End: 07-27-2018 Patient encounter procedure DEFAULT PHYSICIAN Facility:[facility] Procedures Date Procedure Procedure Detail Performing Clinician Start: 01-20-[address] JOYCELYN GLOVER . Comment on above: Performed By: #### [facility] #### [facility] [address] [place] [address] Dr. Lida Venegas Plan of Treatment Date Care Activity Detail Author Start: 11-11-2024 End: 05-05-2025 IOL BIOMETRY W/ IOL CALC OU (BOTH EYES) IOL BIOMETRY W/ IOL CALC OU (BOTH EYES) OPHT Imaging Routine Combined forms of age-related cataract of both eyes Expected: 11/11/2024, Expires: 05/05/2025 [facility] Work Phone: Comment on above: Expected: 11/11/2024, Expires: Start: 05-08-2024 Influenza vaccination Influenza Vaccine (Season Ended) [facility] Start: 03-16-2024 End: 03-16-2024 Admission to same day surgery center 03/16/2024 9:50 AM EDT - 03/16/2024 10:20 AM EDT Surgery Ambulatory Surgery [address] [place] [address] Kristin Haley V, MD [address] [place] [address] PHACOEMULSIFICATION CATARACT IMPLANT INTRAOCULAR LENS W/O ENDOSCOPIC CYCLOPHOTOCOAGULATION Ambulatory Surgery Comment on above: PHACOEMULSIFICATION CATARACT IMPLANT INT RAOCULAR LENS W/O ENDOSCOPIC CYCLOPHOTOCOAGULATION Start: 03-16-2024 End: 03-16-2024 Oph bmtry prtl coher intrfrmtry io lens pwr rené OPHTHALMIC BIOMETRY BY PARTIAL COHERENCE INTERFEROMETRY W/INTRAOCULAR LENS POWER CALCULATION 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, bilateral Hyperopia with astigmatism and presbyopia, bilateral 03/16/2024 9:50 AM EDT [facility] [place] Start: 03-16-2024 Subsequent hospital visit by physician 03/16/2024 9:50 AM EDT Hospital Encounter Ambulatory Surgery [address] [place] [address] Kristin Haley V, MD [address] [place] [address] Combined forms of age-related cataract of both eyes [H25.813] Ambulatory Surgery Comment on above: Combined forms of age-related cataract o f both eyes [H25.813] Start: 03-16-2024 End: 03-16-2024 Xcapsl ctrc rmvl insj io lens prosth w/o ecp PHACOEMULSIFICATION CATARACT IMPLANT INTRAOCULAR LENS W/O ENDOSCOPIC CYCLOPHOTOCOAGULATION 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, bilateral Hyperopia with astigmatism and presbyopia, bilateral 03/16/2024 9:50 AM EDT [facility] Start: 02-10-2024 End: 02-10-2024 Admission to same day surgery center 02/10/2024 11:55 AM EDT - 02/10/2024 12:25 PM EDT Surgery Ambulatory Surgery [address] [place] [address] Kristin Haley V, MD [address] [place] [address] PHACOEMULSIFICATION CATARACT IMPLANT INTRAOCULAR LENS W/O ENDOSCOPIC CYCLOPHOTOCOAGULATION Ambulatory Surgery Comment on above: PHACOEMULSIFICATION CATARACT IMPLANT INT RAOCULAR LENS W/O ENDOSCOPIC CYCLOPHOTOCOAGULATION Start: 02-10-2024 End: 02-10-2024 Oph bmtry prtl coher intrfrmtry io lens pwr rené OPHTHALMIC BIOMETRY BY PARTIAL COHERENCE INTERFEROMETRY W/INTRAOCULAR LENS POWER CALCULATION 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, bilateral Hyperopia with astigmatism and presbyopia, bilateral 02/10/2024 11:55 AM EDT [facility] [place] Start: 02-10-2024 Subsequent hospital visit by physician 02/10/2024 11:55 AM EDT Hospital Encounter Ambulatory Surgery [address] [place] [address] Kristin Haley V, MD [address] [place] [address] Combined forms of age-related cataract of both eyes [H25.813] Ambulatory Surgery Comment on above: Combined forms of age-related cataract o f both eyes [H25.813] Start: 02-10-2024 End: 02-10-2024 Xcapsl ctrc rmvl insj io lens prosth w/o ecp PHACOEMULSIFICATION CATARACT IMPLANT INTRAOCULAR LENS W/O ENDOSCOPIC CYCLOPHOTOCOAGULATION 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 Start: 2005 Pneumococcal Vaccine: 65+ (1 of 1 - PCV) Pneumococcal Vaccine: 65+ (1 of 1 - PCV) [facility] Start: 2000 RSV Vaccine (1 - 1-dose 60+ series) RSV Vaccine (1 - 1-dose 60+ series) [facility] Start: 1990 Shingrix Vaccine (1 of 2) Shingrix Vaccine (1 of 2) [facility] Start: 1985 Diabetes Screening Diabetes Screening [facility] Start: 1959 Urine microalbumin profile DTaP,Tdap,Td Vaccine (1 - Tdap) [facility] Start: 1940 Covid-19 Vaccine (#1) Covid-19 Vaccine (#1) [facility] End: 04-25-2025 CORNEAL TOPOGRAPHY PENTACAM OU (BOTH EYES) CORNEAL TOPOGRAPHY PENTACAM OU (BOTH EYES) OPHT Imaging Routine Combined forms of age-related cataract of both eyes 1 Occurrences starting 11/02/2023 until 04/25/2025 [facility] Work Phone: Comment on above: 1 Occurrences starting 11/02/2023 until 04/25/2025 CORNEAL TOPOGRAPHY P ENTACAM OU (BOTH EYES) CORNEAL TOPOGRAPHY PENTACAM OU (BOTH EYES) OPHT Imaging Routine Combined forms of age-related cataract of both eyes 11/12/2023 12:34 PM EST [facility] Work Phone: End: 04-25-2025 OCT MACULA CIRRUS OU (BOTH EYES) OCT MACULA CIRRUS OU (BOTH EYES) OPHT Imaging Routine Combined forms of age-related cataract of both eyes 1 Occurrences starting 11/02/2023 until 04/25/2025 [facility] Work Phone: Comment on above: 1 Occurrences starting 11/02/2023 until 04/25/2025 OCT MACULA CIRRUS OU (BOTH EYES) OCT MACULA CIRRUS OU (BOTH EYES) OPHT Imaging Routine Combined forms of age-related cataract of both eyes 11/12/2023 12:41 PM EST [facility] Work Phone: [facility] Immunizations Immunization Date Immunization Notes Care Provider Britney donahue 07-12-2013 influenza virus vacc ine, unspecified formulation Kristin Horner MD Work Phone: [facility] Payers Date Payer Category Payer Medicare [employer] MEDICARE A ETNA MEDICARE PPO [id number] 2021-Present [phone] [address] [place] [address] PPO [id number] 1959 Medicare [id number] 1940 Unknown [id number] 1940 Unknown [id number] 1940 Unknown [id number] 1940 Unknown [id number] Unknown Social History Date Type Detail Facility Start: 11-12-2023 Tobacco smoking stat us MAIS Never smoked tobacco [facility] Start: 11-12-2023 Tobacco use and exposure Smoke less tobacco non-user [facility] Start: 11-12-2023 Alcohol intake Current drinke r of alcohol (finding) [facility] Start: 11-12-2023 End: 01-20-2024 History of Social function [facility] Start: 11-12-2023 End: 01-20-2024 Area Deprivation Index [facility] National Score (1-10 0), lower number is lower risk 63 [facility] Start: 11-12-2023 Alcohol Comment 1 beer a month [facility] Start: 1940 Sex Assigned At Not on file [facility] Start: 02-04-2024 Alcohol intake Ex-drinker (finding) [facility] Clinical Notes 11-12-2023 to 02-04-2024 Mena Todd COA - 02/04/2024 1:45 PM EDTPatient InstructionsHeaven Caceres APRN.EBONY - 02/04/2024 1:04 PM EDHeaven Lo APRN.EBONY - 02/04/2024 1:04 PM EDT Note Date & Type Note Facility 02-04-2024 History of Present illness Narrative Confirmed Aim: [place] OU PATIENT UNDERSTANDS HE WILL NEED GLASSES FOR NEAR AND INTERMEDIATE VISION. RANJIT Thakur February 04, 2024 1:45 PM documented in this encounter [facility] 02-04-2024 Instructions Heaven Caceres APRN.EBONY - 02/04/2024 1:12 PM EDT PATIENT PREOPERATIVE INSTRUCTIONS Kristin Haley V, MD has scheduled you for your procedure at this surgery center: [facility]: [phone] --[address] [facility] [place] [address]. Please read below carefully for your personalized instructions. Arrival Time for Surgery: - The Surgery Center or hospital where you are having surgery will call the afternoon before surgery (or Thursday for Thursday surgery) with a scheduled arrival time. - If you have not heard by 4 pm, please contact the surgery center above. Please be aware that emergency situations arise, which may delay or change your surgical time. If this happens, we will notify you as soon as possible and regret any inconvenience Dietary Restrictions: - No solid food after midnight. - You may have 12 ounces of clear liquids (water, clear juices such as apple juice or gatorade, carbonated beverages, clear tea, black coffee, jello) until 2 hours before scheduled arrival at facility. - no milk / coffee creamer - no pulp juices Medications: Unless instructed differently below, stay on all of your medications until your surgery. Approved medications to take the morning of surgery with a sip of water: You may take all of your medications the morning of surgery If you start any new medications after today's visit, please contact the surgeon's office. Blood Thinning Medications: You do not need to hold blood thinners for cataract surgery Important Reminders: - If you are prescribed inhalers for breathing, continue using them. - Candy, mints, and tobacco products are NOT permitted the morning of surgery. - Hearing aids, dentures and glasses may be worn the morning of surgery. - NO jewelry, body piercings, makeup, hairpins or contacts are to be worn the day of surgery. If you develop symptoms such as a fever, cold, or flu, or have other changes to your health within TWO DAYS of scheduled surgery or the morning of surgery, please contact the surgery center above. Personal Belongings: -Please have photo ID and insurance cards. -If you do not have a copy of advance directives on file with us, please bring a copy with you on the day of surgery. - Leave ALL valuables and money at home or with family members. For Outpatient Procedures: - YOU MUST HAVE A RESPONSIBLE EMISSION TECHNICIAN TAKE YOU HOME. A STAFF DEVELOPMENT NURSE OR EYEGLASS ASSEMBLER CANNOT BE MADE A RESPONSIBLE EMISSION TECHNICIAN. - We recommend that a responsible person stays with you overnight to take care of you. - You cannot stay in a hotel alone after outpatient surgery. You will not be permitted to have your surgery, if you do not have someone to take care of you. If you already have an Advance Directive, please fax a copy to [phone] or email to for it to be added to your chart. If you do not have an Advance Directive, you can find the appropriate form and more information at [email or web address]. We recommend that you complete the Advance Directive form found on the website and bring it with you the day of your surgery. It can be witnessed and scanned into your chart that day. Heaven Caceres APRN.EBONY documented in this encounter [facility] 02-04-2024 History and physical note HISTORY AND PHYSICAL EXAMINATION SERVICE DATE: 02/04/2024 SERVICE TIME: 1:05 PM PRIMARY CARE PHYSICIAN: Ulysses Glover MD REASON FOR VISIT: Marcelino Murillo is a 83 year old male who is scheduled for Left - PHACOEMULSIFICATION CATARACT IMPLANT INTRAOCULAR LENS W/O ENDOSCOPIC CYCLOPHOTOCOAGULATION Left - OPHTHALMIC BIOMETRY BY PARTIAL COHERENCE INTERFEROMETRY W/INTRAOCULAR LENS POWER CALCULATION at the request of Dr. Kristin Haley V for consultation. My final recommendation will be communicated back to the requesting physician by way of shared medical record or letter. Assessment Other specified hypothyroidism Assessment: Stable on Levothyroxine (Synthroid) GERD (gastroesophageal reflux disease) Assessment: Well controlled with PPI Paroxysmal atrial fibrillation (HCC) Assessment: Stable, rate controlled. Follows with PCP. On DOAC and BB. Hernandez Activity Status Index: METS: Walk indoors, such as around the house (1.75 METs) Do light work around the house, such as dusting or washing dishes (2.70 METs) Take care of self; that is eating, dressing, bathing, using the toilet (2.75 METs) Climb a flight of stairs or walk up a hill (5.50 METs) DASI Score: 12.7 Patient denies any chest pain or undue shortness of breath with the above physical activity. Clinical Frailty Scale: 3. Well, with treated comorbid disease STOP-Bang Score: Patient over 50 years old Male patient Denies snoring loudly Denies feeling tired, fatigued, or sleepy during the daytime Has not been observed to stop breathing or choking/gasping during sleep Denies having high blood pressure BMI less than or equal to 35 kg/m^2 Does not have a large neck STOP-Bang Score: 2 [id number] Score: Age: >=75 Sex: male CHF history: No Hypertension history: No Stroke/TIA/thromboembolism history: No Vascular disease history: No Diabetes history: No [id number] Score: 2 ARISCAT Score: Age: >80 Preoperative SpO2: >=96% Respiratory infection in the last month: No Preoperative anemia: Yes Surgical incision: peripheral Duration of surgery: <2 hrs Emergency procedure: No ARISCAT Score: 27 ANESTHESIA FINDINGS: Intubation History: Significant Anesthesia Considerations: Airway History: I - PHYSICAL EVALUATION AIRWAY Patient intubated: No. Tracheostomy tube not present Mallampati: II. Neck ROM: full ROM without neurological symptoms. Mouth opening: adequate. Short neck: no. Thick neck: no Verdin present: no Lip Bite Test: I Microretrognathia/Micronagthia/Rece ssed Chin: No DENTAL Normal dental observations. II - ANESTHESIA PLAN Anesthetic plan additional comments: *PACC/TCI - anesthesia choice. Beta Miguelangel Monitoring Plan Post Procedure Analgesic Plan Prepared for surgery: This patient is optimally prepared for surgery. CONSULTS: Patient does not require consults for optimization at this time. 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 Patient complains of decreased visual acuity, blurred vision, and difficulty with night driving for > 6 months. Found to have bilateral cataracts. Patient denies pain. No relieving factors, patient has opted for surgical treatment of cataracts. PAST MEDICAL HISTORY Diagnosis Date GERD (gastroesophageal reflux disease) Hypothyroidism PAF (paroxysmal atrial fibrillation) (HCC) PAST SURGICAL HISTORY Procedure Laterality Date COLONOSCOPY SCREENING PAST SURGICAL HISTORY OF Right nephrectomy PAST SURGICAL HISTORY OF Lipoma removal FAMILY HISTORY Problem Relation Age of Onset Anesthesia Problems No Family History SOCIAL HISTORY: Social History Tobacco Use Smoking status: Never Smokeless tobacco: Never Vaping Use Vaping Use: Never used Substance Use Topics Alcohol use: Not Currently Drug use: Never Prior to Admission medications as of 02/04/24 1308 Medication Sig Last Dose Taking rivastigmine tartrate (EXELON) 3 mg capsule Take 1 capsule by mouth every 12 hours. Taking Yes memantine XR (NAMENDA XR) 14 mg CSpX capsule Take 28 mg by mouth once daily. Taking Yes psyllium seed/bran (PSYLLIUM-BRAN ORAL) Take by mouth. Taking Yes levothyroxine (SYNTHROID) 50 mcg tablet Take 1 tablet by mouth every afternoon. Taking Yes liothyronine (CYTOMEL) 5 mcg tablet Take 2 tablets by mouth every afternoon. Taking Yes apixaban (ELIQUIS) 5 mg tab(s) Take by mouth two times a day. Taking Yes BABY ASPIRIN ORAL Take by mouth. Taking Yes fish,bora,flax oils-om3,6,9no1 (OMEGA 3-6-9) 1,200 mg cap Take by mouth. Taking Yes zinc sulfate (ZINC-220) 220 mg (50 mg zinc) capsule Take 220 mg by mouth once daily. Taking Yes ylapmtpi-qzqzmuaspcd-tjzv cb25 116-100 mg cap Take by mouth. Taking Yes allopurinol (ZYLOPRIM) 300 mg tablet Take 300 mg by mouth once daily. Taking Yes omeprazole (PRILOSEC) 40 mg capsule Take 40 mg by mouth once daily. Taking Yes lutein 40 mg cap Take by mouth. Taking Yes No medication comments found. ALLERGIES No Known Allergies Covid Immunization Dates Overdue - Covid-19 Vaccine ( season) Never done No completion, postpone, frequency change, or communication history exists for this topic. REVIEW OF SYSTEMS: PAIN ASSESSMENT: General: No weight loss, malaise or fevers. 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 No history of respiratory/pulmonary symptoms or problems. Cardiovascular: Negative for Recent IL, Angina, Arrhythmia, Chest Pain, CHF GI: No history of GI symptoms or problems. No history of esophageal varices, recent ascites, or ETOH greater than 2 drinks per day. + GERD : No history of dysuria, frequency or incontinence,, stones or chronic kidney disease MANAGER OF TRANSPORTATION: N/A : N/A, No LMP for male patient. Endocrine: Hypothyroidism Hematology: Chronic anti-coagulation / platelet meds (Aspirin, DOAC) Oncology: No history of CA metastasis, chemo within 30 days, or radiotherapy within 90 days. Has not lost 10% of body wt in 6 months. No history of oncological symptoms or problems. Psych: No history of psychiatric symptoms or problems. Musculoskeletal: Negative for joint pain or swelling, back pain or muscle pain. Skin: Negative for lesions, rash and itching. Objective PHYSICAL EXAM: VITALS: BP 148/81 Pulse 82 Temp (Src) 97.5 (Oral) Resp 14 Ht 6' 2 (1.88m) Wt 218 lb 4.1 oz (99.0kg) SpO2 97% BMI 28.01 kg/(m^2). General: Alert and oriented, No acute distress Skin: Normal color, no rash, no lesions. HEENT: Defer to surgeon Cardiovascular: Normal S1 & S2, no rubs, murmurs or gallops. No JVD. Pulse regular. Lungs: Normal breath sounds, no wheezes or crackles. Abdomen: Soft, non-tender, no rigidity. Extremities: No deformity, no edema or tenderness, no joint swelling or clubbing. Neurological: Normal cognition and motor skills. Pulses: Carotid and radial pulses normal +2. Diagnostic tests reviewed for today's visit: Instructions Given to Patient: Instructions located in the after visit summary. Patient given verbal and written preop instructions and voices comprehension and compliance. SIGNATURE: Heaven Caceres APRN.EBONY PATIENT NAME: Marcelino Murillo DATE: 02/04/2024 TIME: 1:10 PM [facility] 02-04-2024 History and physical note HISTORY AND PHYSICAL EXAMINATION SERVICE DATE: 02/04/2024 SERVICE TIME: 1:05 PM PRIMARY CARE PHYSICIAN: Ulysses Glover MD REASON FOR VISIT: Marcelino Murillo is a 83 year old male who is scheduled for Left - PHACOEMULSIFICATION CATARACT IMPLANT INTRAOCULAR LENS W/O ENDOSCOPIC CYCLOPHOTOCOAGULATION Left - OPHTHALMIC BIOMETRY BY PARTIAL COHERENCE INTERFEROMETRY W/INTRAOCULAR LENS POWER CALCULATION at the request of Dr. Kristin Haley V for consultation. My final recommendation will be communicated back to the requesting physician by way of shared medical record or letter. Assessment Other specified hypothyroidism Assessment: Stable on Levothyroxine (Synthroid) GERD (gastroesophageal reflux disease) Assessment: Well controlled with PPI Paroxysmal atrial fibrillation (HCC) Assessment: Stable, rate controlled. Follows with PCP. On DOAC and BB. Hernandez Activity Status Index: METS: Walk indoors, such as around the house (1.75 METs) Do light work around the house, such as dusting or washing dishes (2.70 METs) Take care of self; that is eating, dressing, bathing, using the toilet (2.75 METs) Climb a flight of stairs or walk up a hill (5.50 METs) DASI Score: 12.7 Patient denies any chest pain or undue shortness of breath with the above physical activity. Clinical Frailty Scale: 3. Well, with treated comorbid disease STOP-Bang Score: Patient over 50 years old Male patient Denies snoring loudly Denies feeling tired, fatigued, or sleepy during the daytime Has not been observed to stop breathing or choking/gasping during sleep Denies having high blood pressure BMI less than or equal to 35 kg/m^2 Does not have a large neck STOP-Bang Score: 2 [id number] Score: Age: >=75 Sex: male CHF history: No Hypertension history: No Stroke/TIA/thromboembolism history: No Vascular disease history: No Diabetes history: No [id number] Score: 2 ARISCAT Score: Age: >80 Preoperative SpO2: >=96% Respiratory infection in the last month: No Preoperative anemia: Yes Surgical incision: peripheral Duration of surgery: <2 hrs Emergency procedure: No ARISCAT Score: 27 ANESTHESIA FINDINGS: Intubation History: Significant Anesthesia Considerations: Airway History: I - PHYSICAL EVALUATION AIRWAY Patient intubated: No. Tracheostomy tube not present Mallampati: II. Neck ROM: full ROM without neurological symptoms. Mouth opening: adequate. Short neck: no. Thick neck: no Verdin present: no Lip Bite Test: I Microretrognathia/Micronagthia/Rece ssed Chin: No DENTAL Normal dental observations. II - ANESTHESIA PLAN Anesthetic plan additional comments: *PACC/TCI - anesthesia choice. Beta Miguelangel Monitoring Plan Post Procedure Analgesic Plan Prepared for surgery: This patient is optimally prepared for surgery. CONSULTS: Patient does not require consults for optimization at this time. 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 Patient complains of decreased visual acuity, blurred vision, and difficulty with night driving for > 6 months. Found to have bilateral cataracts. Patient denies pain. No relieving factors, patient has opted for surgical treatment of cataracts. PAST MEDICAL HISTORY Diagnosis Date GERD (gastroesophageal reflux disease) Hypothyroidism PAF (paroxysmal atrial fibrillation) (HCC) PAST SURGICAL HISTORY Procedure Laterality Date COLONOSCOPY SCREENING PAST SURGICAL HISTORY OF Right nephrectomy PAST SURGICAL HISTORY OF Lipoma removal FAMILY HISTORY Problem Relation Age of Onset Anesthesia Problems No Family History SOCIAL HISTORY: Social History Tobacco Use Smoking status: Never Smokeless tobacco: Never Vaping Use Vaping Use: Never used Substance Use Topics Alcohol use: Not Currently Drug use: Never Prior to Admission medications as of 02/04/24 1308 Medication Sig Last Dose Taking rivastigmine tartrate (EXELON) 3 mg capsule Take 1 capsule by mouth every 12 hours. Taking Yes memantine XR (NAMENDA XR) 14 mg CSpX capsule Take 28 mg by mouth once daily. Taking Yes psyllium seed/bran (PSYLLIUM-BRAN ORAL) Take by mouth. Taking Yes levothyroxine (SYNTHROID) 50 mcg tablet Take 1 tablet by mouth every afternoon. Taking Yes liothyronine (CYTOMEL) 5 mcg tablet Take 2 tablets by mouth every afternoon. Taking Yes apixaban (ELIQUIS) 5 mg tab(s) Take by mouth two times a day. Taking Yes BABY ASPIRIN ORAL Take by mouth. Taking Yes fish,bora,flax oils-om3,6,9no1 (OMEGA 3-6-9) 1,200 mg cap Take by mouth. Taking Yes zinc sulfate (ZINC-220) 220 mg (50 mg zinc) capsule Take 220 mg by mouth once daily. Taking Yes hrnswyvo-ehopuehsjyi-gptw cb25 116-100 mg cap Take by mouth. Taking Yes allopurinol (ZYLOPRIM) 300 mg tablet Take 300 mg by mouth once daily. Taking Yes omeprazole (PRILOSEC) 40 mg capsule Take 40 mg by mouth once daily. Taking Yes lutein 40 mg cap Take by mouth. Taking Yes No medication comments found. ALLERGIES No Known Allergies Covid Immunization Dates Overdue - Covid-19 Vaccine ( season) Never done No completion, postpone, frequency change, or communication history exists for this topic. REVIEW OF SYSTEMS: PAIN ASSESSMENT: General: No weight loss, malaise or fevers. 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 No history of respiratory/pulmonary symptoms or problems. Cardiovascular: Negative for Recent IL, Angina, Arrhythmia, Chest Pain, CHF GI: No history of GI symptoms or problems. No history of esophageal varices, recent ascites, or ETOH greater than 2 drinks per day. + GERD : No history of dysuria, frequency or incontinence,, stones or chronic kidney disease MANAGER OF TRANSPORTATION: N/A : N/A, No LMP for male patient. Endocrine: Hypothyroidism Hematology: Chronic anti-coagulation / platelet meds (Aspirin, DOAC) Oncology: No history of CA metastasis, chemo within 30 days, or radiotherapy within 90 days. Has not lost 10% of body wt in 6 months. No history of oncological symptoms or problems. Psych: No history of psychiatric symptoms or problems. Musculoskeletal: Negative for joint pain or swelling, back pain or muscle pain. Skin: Negative for lesions, rash and itching. Objective PHYSICAL EXAM: VITALS: BP 148/81 Pulse 82 Temp (Src) 97.5 (Oral) Resp 14 Ht 6' 2 (1.88m) Wt 218 lb 4.1 oz (99.0kg) SpO2 97% BMI 28.01 kg/(m^2). General: Alert and oriented, No acute distress Skin: Normal color, no rash, no lesions. HEENT: Defer to surgeon Cardiovascular: Normal S1 & S2, no rubs, murmurs or gallops. No JVD. Pulse regular. Lungs: Normal breath sounds, no wheezes or crackles. Abdomen: Soft, non-tender, no rigidity. Extremities: No deformity, no edema or tenderness, no joint swelling or clubbing. Neurological: Normal cognition and motor skills. Pulses: Carotid and radial pulses normal +2. Diagnostic tests reviewed for today's visit: Instructions Given to Patient: Instructions located in the after visit summary. Patient given verbal and written preop instructions and voices comprehension and compliance. SIGNATURE: Heaven Caceres APRN.CNP PATIENT NAME: Marcelino Murillo DATE: 02/04/2024 TIME: 1:10 PM documented in this encounter [facility] 11-12-2023 Miscellaneous Notes Addended by: HALEY TRIPATHI on: 11/12/2023 04:35 PM Modules accepted: Orders documented in this encounter [facility] 11-12-2023 Note HNO ID: [id number] Author: KRISTIN HALEY MD Service: ? Author [...] first - Aim: plano Both eyes - Flomax/alpha-miguelangel? No - Toric candidate: No - PanOptix candidate: No - Anesthesia: Topical with MAC - Contact lens use No - History of LASIK/PRK/RK No - Discussed initiate twice daily eyelid scrubs pending U/S biometry and surgery - Comanage with Dr Chow; [facility] POD #1 Cataract Presurgical Documentation Cataract: Both eyes (OU) Current Visual Acuity Right Eye Distance CC 20/40 Left Eye Distance CC 20/30 Best Corrected Vision Right Eye 20/30 Best Corrected Vision Left Eye 20/30-2 Glare Testing: Right Eye High less than 20/400 Left Eye High less than 20/400 Visual Function: Marcelino Carpio Chidi states that the decline in vision from [...] patient was offered a surgery/procedure at a [facility] facility. The surgeon/proceduralist and patient have [...] HALEY MD November 12, 2023 1:09 PM [facility] 11-12-2023 Note HNO ID: [id number] Author: DENISE ANGUIANO OD Service: ? Author Type: LOGISTICIAN Type: Progress Notes Filed: 11/12/2023 13:16 Note [...] Anguiano, OD November 12, 2023 12:55 PM [facility] 11-12-2023 History of Present illness Narrative The documentation for this note was completed by Ruthy Hewitt, COA acting as a scribe for Kristin HALEY MD. 11/12/2023 1:09 PM. ASSESSMENT / PLAN: 1. Combined cataract, both eyes - Offered cataract extraction by phacoemulsification and intraocular lens implant with Dr. Haley, both eyes, left eye first - Aim: plano Both eyes - Flomax/alpha-miguelangel? No - Toric candidate: No - PanOptix candidate: No - Anesthesia: Topical with MAC - Contact lens use No - History of LASIK/PRK/RK No - Discussed initiate twice daily eyelid scrubs pending U/S biometry and surgery - Comanage with Dr Chow; [facility] POD #1 Cataract Presurgical Documentation Cataract: [...] patient was offered a surgery/procedure at a [facility] facility. The surgeon/proceduralist and patient have [...] diagnosis) Pt ed. Ref by Dr. Chow. Evaung with today. 2. 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, bilateral Hyperopia with astigmatism and presbyopia, bilateral [facility] Pre-op evaluation- Primary Preoperative examination, unspecified Other specified hypothyroidism Gastroesophageal reflux disease, unspecified whether esophagitis present Paroxysmal atrial fibrillation (HCC) Atrial fibrillation 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 Follows with PCP. On DOAC and BB. 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 and combined forms of 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, bilateral Hyperopia with astigmatism and presbyopia, 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 and combined forms of 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, bilateral Hyperopia with astigmatism and presbyopia, bilateral documented in this encounter [facility] Summary Purpose Family History No Family History Records FoundNo Family History Records FoundNo Family History Records Found Advance Directives No Advanced Directives Records FoundNo Advanced Directives Records FoundNo Advanced Directives Records Found Additional Source Comments (unrecognized sect ion and content) No Status Records FoundNo Status Records FoundNo Status Records Found INFORMATION SOURCE (unrecogn ized section and content) DATE CREATED AUTHOR 08/18/[address] [facility] DATE CREATED AUTHOR AUTHOR'S ORGANIZ ATION 01/21/2023 [facility] DATE CREATED AUTHOR AUTHOR'S ORGANIZ ATION 01/22/2024 [facility] Source Comments (unrecognize d section and content) In the event this informatio n is protected by the Federal Confidentiality of Alcohol and Drug Abuse Patient Records regulations: The Federal rules restrict any use of the information to criminally investigate or prosecute any alcohol or drug abuse patient.[facility] event this information is protected by the Federal Confidentiality of Alcohol and Drug Abuse Patient Records regulations: The Federal rules restrict any use of the information to criminally investigate or prosecute any alcohol or drug abuse patient.[facility] event this information is protected by the Federal Confidentiality of Alcohol and Drug Abuse Patient Records regulations: The Federal rules restrict any use of the information to criminally investigate or prosecute any alcohol or drug abuse patient.[facility] Reason for Visit (unrecogniz ed section and content) Reason Comments Cataract Evaluation Reason Comments Pre-Op Visit Reason Comments Pre-Op Exam Active Administered Medications - up to 3 [...] Given 11/12/2023 12:00 PM EST 1 Drop Care Teams (unrecognized sec tion and content) 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 [facility] [employer] [facility]. provides no warranty or guarantee of the accuracy or completeness of information in this document.
[2024-02-10 08:30] LABS: Chol HDL Ratio 2.8; Cholesterol 110 mg/dL (<=200); HDL Cholesterol 39 mg/dL (40-60); Triglycerides 44 mg/dL (<=150); VLDL CHOLESTEROL 8.8 mg/dL
== END 2024-02-10 07:56 | disposition home or self-care (01) ==
LOC: LAB 07:55
PROVIDERS: PCP Family Medicine; Visit Provider Family Medicine
DX: E78.00 Pure hypercholesterolemia, unspecified (principal)
CPT/HCPCS: 36415; 80061

== ENCOUNTER 2025-01-31 07:44 | Outpatient (REF) | payer MEDICARE, SELFPAY ==
--- OUTSIDE RECORDS SUMMARY | 2024-03-16 08:52 | XMS_ITS ---
Author Name Auto Generated Organization OHIP Care Team Providers Care Income Tax Analyst Name Role Phone BRANDY V, KRISTIN Referring Unavailable ULYSSES GLOVER Primary Care Unavailable BRANDY V, KRISTIN Admitting Unavailable BRANDY V, KRISTIN Attending Unavailable BRANDY V, KRISTIN Referring Unavailable BRANDY V, KRISTIN Admitting Unavailable BRANDY V, KRISTIN Attending Unavailable BRANDY V, KRISTIN Referring Unavailable BRANDY V, KRISTIN Referring Unavailable ULYSSES GLOVER M Primary Care Unavailable PROBLEMS DATE TYPE CONDITION / CODE ATTENDING STATUS [facility] 02/10/2024 Active 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 V, [facility] 02/10/2024 Active Hyperopia with astigmatism and presbyopia, bilateral / H52.03(ICD-10) BRANDY V, [facility] 02/10/2024 Active Hyperopia with astigmatism and presbyopia, bilateral / H52.203(ICD-10) BRANDY V, [facility] 02/10/2024 Active Hyperopia with astigmatism and presbyopia, bilateral / H52.4(ICD-10) BRANDY V, [facility] PROCEDURES No Procedure Records Found RESULTS ANES POSTPROC EVAL Observed: 03/16/2024 1:08 PM Status: COMPLETED Source: [facility] HNO ID: [id number] Author: MARCELINO BACON II, DO Service: Anesthesiology Author Type: Anesthesiologist Type: Anesthesia Postprocedure Evaluation Filed: 03/16/2024 13:09 Note Text: POST ANESTHESIA EVALUATION NOTE : 1940 Procedure Summary Date: 03/16/24 Room / Location: [address] Anesthesia Start: 1026 Anesthesia Stop: 7 Procedures: PHACOEMULSIFICATION CATARACT IMPLANT INTRAOCULAR LENS W/O ENDOSCOPIC CYCLOPHOTOCOAGULATION (Right: Eye) OPHTHALMIC BIOMETRY BY PARTIAL COHERENCE INTERFEROMETRY W/INTRAOCULAR LENS POWER CALCULATION (Right: Eye) Diagnosis: 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, bilateral Hyperopia with astigmatism and presbyopia, bilateral (Combined forms of age-related cataract of both eyes [H25.813]) (Insufficiency of tear film of both eyes [H04.123]) (Anatomical narrow angle, bilateral [H40.033]) (Hyperopia with astigmatism and presbyopia, bilateral [H52.03, H52.203, H52.4]) Surgeons: Kristin Haley V, MD Responsible Provider: Marcelino Bacon II, DO Anesthesia Type: MAC ASA Status: 3 Anesthesia Type: MAC Last Vitals Vitals Value Taken Time BP 160/72 03/16/24 1058 Temp 36.3 ?C (97.4 ?F) 03/16/24 1046 HR SpO2 56 03/16/24 1058 Resp 16 03/16/24 1058 SpO2 98 % 03/16/24 1058 Post Anesthesia Patient Status Patient Evaluation: PACU. PACU/ICU Patient Condition: stable. Neurological Status: aware and responsive. Pulmonary Status: breathing comfortably on room air Airway Control: returned to baseline unsupported. Cardiovascular Status: stable. Pain Management: clinically adequate Postoperative Hydration: acceptable. Intraoperative Events: no significant anesthesia events Post Operative Nausea/Vomiting Status: no significant post operative nausea or vomiting Recommendation: continue current plan of care. Anesthesia Observations No Documentation SIGNATURE: Marcelino Bacon II, DO PATIENT NAME: Marcelino Morales DATE: March 16, 2024 TIME: 1:08 PM CSN: [id number] NURSING PROG Observed: 03/16/2024 10:59 AM Status: COMPLETED Source: [facility] ID: [id number] Author: MELIZA NEGRETE RN Service: ? Author Type: Registered Nurse Type: Nursing Progress Note Filed: 03/16/2024 10:59 Note Text: POST OP LEARNING RESPONSE INSTRUCTION PROVIDED TO: Patient and Spouse METHOD OF INSTRUCTION: Written instruction/Handouts Verbal instruction PATIENT / FAMILY RESPONSE: Verbalizes understanding of: INFECTION MANAGEMENT-Signs and symptoms of an infection and importance of contacting the physician PAIN MANAGEMENT-Effective strategies to manage pain in addition to pain medication PHYSICAL RESTRICTIONS-Physical restrictions and recommendations after discharge from the hospital POST-OPERATIVE INSTRUCTIONS-Correct actions to take to reduce postoperative complications WORSENING CONDITION-Signs and symptoms of a worsening condition that warrant a call to the physician FOLLOW-UP PLAN: Patient instructed to call with any further issues SUPPLEMENTAL MATERIAL: Post op discharge instructions Post sedation instructions given REFERRAL (RECOMMENDATION): None Electronically Signed By: Meliza Negrete RN In Department: AMBULATORY SURGERY OPERATIVE NO Observed: 03/16/2024 10:26 AM Status: COMPLETED Source: [facility] ID: [id number] Author: KRISTIN HALEY MD Service: Ophthalmology Author Type: Physician Type: Operative Report Filed: 03/16/2024 10:44 Note Text: OPERATIVE REPORT DATE OF SERVICE: March 16, 2024 PRIMARY SURGEON: Kristin Haley M.D. COLD MILL SUPERVISOR: None [Any nurse listed as assisting or otherwise participating in this patient's care in the operating room has solely performed the duties of a circulating nurse.] Procedure(s) (LRB): PHACOEMULSIFICATION CATARACT IMPLANT INTRAOCULAR LENS W/O ENDOSCOPIC CYCLOPHOTOCOAGULATION (Right) OPHTHALMIC BIOMETRY BY PARTIAL COHERENCE INTERFEROMETRY W/INTRAOCULAR LENS POWER CALCULATION (Right) ANESTHESIA: Topical with monitored anesthesia care. PREOPERATIVE DIAGNOSIS: Combined cataract POSTOPERATIVE DIAGNOSIS: Combined cataract, presbyopia OPERATIVE INDICATIONS: BAT <20/400 OPERATIVE PROCEDURE: The patient was admitted to the operating suite where an IV and BP, EKG, and O2 monitors were placed. The operative eye was pretreated with 2.5% tropicamide and 1% phenylephrine eye drops. The operative eye was confirmed and marked. The intended Intraocular lens model and power circled on the patient's source document was confirmed to match the intraocular lens model and power selected from the Intraocular lens consignment, in accordance with hospital intraocular lens verification policy. Nasal oxygen was administered. With the patient in the supine position, topical lidocaine 4% was placed in the eye. The patient was then prepped and draped in the usual sterile fashion for intraocular surgery. After a time-out confirming correct patient using two unique identifiers, correct eye, correct operation, presence of allergies, correct implant, and implant sterility date, an eyelid speculum was placed. Under the operating microscope a beveled clear corneal incision was created temporally with a Solomon blade then a 2.4 mm keratome. The anterior chamber was reformed with Viscoat, after which the anterior capsule was opened centrally. Using the Utrata forceps a continuous curvilinear capsulorrhexis of approximately 5.5 mm round was created. Gentle hydrodissection was accomplished using preservative-free lidocaine on a 27-gauge cannula. Using the Abebe phacoemulsification unit with the [employer] curved tip, the anterior chamber was entered and the nucleus was removed while it was in the bag. The epinuclear ring was dissected into several segments, then removed using the phacoemulsification unit set to the desired aspiration flow rate and ultrasound parameters. It was necessary to use chopper forceps at various intervals to aid in the fragmentation of the dense lens material. Great care was taken not to violate the posterior capsule. The silicone-tipped I and A instrument was used to remove the cortex and buff off any remaining cataractous material from the posterior capsule. The capsular bag was then reformed with Discovisc and the following Intraocular lens implant Implant Name Type Inv. Item Serial No. Balloon Sander Lot No. LRB No. Used Action Model No. [id number] [employer] - [id number] Intraocular Lens [id number] [employer] [id number] [employer] Right 1 Implanted [id number] was inserted through the lips of the wound into the capsular bag. I have reviewed the images and report from the Ophthalmic Biometry March 16, 2024 to determine the Intraocular lens Power Calculation for the IOL lens implant. I have interpreted and agree with the calculation of the IOL as listed above. Using the I and A instrument, the Discovisc was removed from the anterior chamber and capsular bag, and the implant was centered. Cefuroxime 1mg in 0.1 mL normal saline was introduced into the anterior chamber through the clear corneal incision using a 30 gauge cannula. The wound was checked and found to be watertight. At the end of the procedure, the cornea was clear, the anterior chamber was deep and clear, the pupil was round, the implant was centered within the capsular bag, and the posterior capsule was intact. The eyelid speculum was removed and prednisolone acetate 1% and timolol 0.5% eye drops were administered. A shield was affixed over the eye and the patient was sent to the recovery room, leaving the operating room in excellent condition. ESTIMATED BLOOD LOSS: <1mL SPECIMEN: None FINDINGS: Age-related cataract COMPLICATIONS: None Incision/Procedure Start Time: 10:35 AM Incision Close/Procedure End Time: 10:42 AM - Comanage with Dr Chow; relinquish care POD #1 Kristin HALEY MD ANES PRE-OP Observed: 03/16/2024 10:04 AM Status: COMPLETED Source: [facility] ID: [id number] Author: MARCELINO BACON II, DO Service: Anesthesiology Author Type: Anesthesiologist Type: Anesthesia Preprocedure Evaluation Filed: 03/16/2024 10:05 Note Text: ANESTHESIOLOGY DAY OF SURGERY NOTE : 1940 Procedure Information Date/Time: 03/16/24 1015 Procedures: PHACOEMULSIFICATION CATARACT IMPLANT INTRAOCULAR LENS W/O ENDOSCOPIC CYCLOPHOTOCOAGULATION (Right: Eye) OPHTHALMIC BIOMETRY BY PARTIAL COHERENCE INTERFEROMETRY W/INTRAOCULAR LENS POWER CALCULATION (Right: Eye) Location: [address] Surgeons: Kristin Haley V, MD Estimated body mass index is 28.02 kg/m? as calculated from the following: Height as of 02/04/24: 188 cm (6' 2 ). Weight as of 02/04/24: 99 kg (218 lb 4.1 oz). Most recent hematocrit and potassium results: No results found for this basename: HCT,HEMATOCRIT,K,POTASSIUM Relevant Problems No relevant active problems I - PHYSICAL EVALUATION AIRWAY Patient intubated: No. Tracheostomy tube not present Mallampati: III. TM distance: >3 FB. Neck ROM: limited extension. Mouth opening: adequate. Short neck: no. Thick neck: yes DENTAL Dental findings: teeth intact. Additional exam findings: yes. CARDIOVASCULAR Rhythm: regular Rate: normal PULMONARY Breath sounds clear to auscultation. II - ANESTHESIA PLAN ASA Score: 3 Anesthetic Plan: MAC The patient is not a current smoker. NPO Status: adequate Beta Miguelangel Monitoring Plan Monitoring plan: standard ASA. Post Procedure Analgesic Plan Postoperative analgesic plan: parenteral or oral opioids. Informed Consent Anesthetic risks, benefits, alternatives, personnel and consent discussed: yes. Patient / Responsible Democrat agrees to proceed: yes Patient / Surrogate agrees to blood products: Yes Vitals Value Taken Time BP 178/83 03/16/24956 Pulse Resp 16 03/16/24956 Temp 36.7 ?C (98 ?F) 03/16/24 09 SpO2 94 % 03/16/24 0957 Facility-Administered Medications as of 03/16/2024 Medication Dose Route Frequency NaCl 0.9% iv infusion 30 mL/hr INTRAVENOUS CONTINUOUS [COMPLETED] lidocaine HCl (PF) 40 mg/mL 2 mg injection (XYLOCAINE) 0.05 mL RIGHT EYE EVERY 5 MINUTES X 3 DOSES [COMPLETED] PHENYLephrine 2.5 % 1 Drop (AK-DILATE, YUNI-SYNEPHRINE) 1 Drop RIGHT EYE EVERY 5 MINUTES X 3 DOSES [COMPLETED] tropicamide 1 % 1 Drop (MYDRIACYL) 1 Drop RIGHT EYE EVERY 5 MINUTES X 3 DOSES cyclopentolate 1 % 1 Drop (CYCLOGYL) 1 Drop RIGHT EYE Pre-Op PRN [COMPLETED] keTORolac 0.5 % 1 Drop (ACULAR) 1 Drop RIGHT EYE q 5 MIN [COMPLETED] Povidone-Iodine 5 % 30 mL ophth soln (BETADINE) 30 mL RIGHT EYE ONCE [COMPLETED] balanced salts 15 mL (BSS) 15 mL RIGHT EYE ONCE [COMPLETED] lidocaine HCl (PF) 40 mg/mL 2 mg injection (XYLOCAINE) 0.05 mL LEFT EYE EVERY 5 MINUTES X 3 DOSES [COMPLETED] PHENYLephrine 2.5 % 1 Drop (AK-DILATE, YUNI-SYNEPHRINE) 1 Drop LEFT EYE EVERY 5 MINUTES X 3 DOSES [COMPLETED] tropicamide 1 % 1 Drop (MYDRIACYL) 1 Drop LEFT EYE EVERY 5 MINUTES X 3 DOSES [COMPLETED] keTORolac 0.5 % 1 Drop (ACULAR) 1 Drop LEFT EYE q 5 MIN [COMPLETED] Povidone-Iodine 5 % 30 mL ophth soln (BETADINE) 30 mL LEFT EYE ONCE [COMPLETED] balanced salts 15 mL (BSS) 15 mL LEFT EYE ONCE Outpatient Medications as of 03/16/2024 Medication Sig levothyroxine (SYNTHROID) 50 mcg tablet Take 1 tablet by mouth every afternoon. liothyronine (CYTOMEL) 5 mcg tablet Take 2 tablets by mouth every afternoon. prednisoLONE acetate (PRED FORTE) 1 % ophthalmic suspension USE DIRECTED BY PHYSICIAN, IN OPERATIVE EYE, BEGINNING ONE DAY AFTER SURGERY keTORolac (ACULAR) 0.5 % ophthalmic solution USE DIRECTED BY PHYSICIAN, IN OPERATIVE EYE, BEGINNING ONE DAY AFTER SURGERY prednisoLONE acetate (PRED FORTE) 1 % ophthalmic suspension USE DIRECTED BY PHYSICIAN, IN OPERATIVE EYE, BEGINNING ONE DAY AFTER SURGERY keTORolac (ACULAR) 0.5 % ophthalmic solution USE DIRECTED BY PHYSICIAN, IN OPERATIVE EYE, BEGINNING ONE DAY AFTER SURGERY I have interviewed and examined the patient. I have reviewed the medical record and/or the pre-anesthesia evaluation, pertinent labs, and test results. This contains updated information obtained within 48 hours of Surgery/Procedure. SIGNATURE: Marcelino Bacon II, DO PATIENT NAME: Marcelino Morales DATE: March 16, 2024 TIME: 10:04 AM CSN: [id number] NURSING PROG Observed: 03/16/2024 9:54 AM Status: COMPLETED Source: [facility] HNO ID: [id number] Author: MELIZA BERGER RN Service: ? Author Type: Registered Nurse Type: Nursing Progress Note Filed: 03/16/2024 09:57 Note Text: Other: 0945 Dr. Knutson aware of Heart rhythm: regular at times, also bigeminy. Pt asymptomatic and vitals stable. Pt doesn't know his usual heart rhythm and no EKG from [facility] previously. HISTORY PHYSICAL Observed: 03/16/2024 9:51 AM Status: COMPLETED Source: [facility] HNO ID: [id number] Author: VIVIAN QUESADA APRN.EBONY Service: ? Author Type: Nurse Practitioner Type: H&P Filed: 03/16/2024 09:57 Note Text: Preoperative HISTORY AND PHYSICAL EXAM SERVICE DATE: 03/16/2024 SERVICE TIME: 9:53 AM Cheif Complaint: Visual Changes HPI: 83 year old year old presents today with complaints of difficulty with vision for > 6 months. Found to have cataract on exam. Denies pain. No relieving factors. PAST ANESTHESIA HISTORY: No history of adverse event PAST SURGICAL HISTORY Procedure Laterality Date COLONOSCOPY SCREENING PAST SURGICAL HISTORY OF Right nephrectomy PAST SURGICAL HISTORY OF Lipoma removal FAMILY HISTORY Problem Relation Age of Onset Anesthesia Problems No Family History Social History Tobacco Use Smoking status: Never Smokeless tobacco: Never Vaping Use Vaping Use: Never used Substance Use Topics Alcohol use: Not Currently Drug use: Never PAST MEDICAL HISTORY Diagnosis Date GERD (gastroesophageal reflux disease) Hypothyroidism PAF (paroxysmal atrial fibrillation) ([facility]) No current facility-administered medications on file prior to encounter. Current Outpatient Medications on File Prior to Encounter Medication Sig levothyroxine (SYNTHROID) 50 mcg tablet Take 1 tablet by mouth every afternoon. liothyronine (CYTOMEL) 5 mcg tablet Take 2 tablets by mouth every afternoon. apixaban (ELIQUIS) 5 mg tab(s) Take by mouth two times a day. BABY ASPIRIN ORAL Take by mouth. fish,bora,flax oils-om3,6,9no1 (OMEGA 3-6-9) 1,200 mg cap Take by mouth. zinc sulfate (ZINC-220) 220 mg (50 mg zinc) capsule Take 220 mg by mouth once daily. ztzigtjk-noavzppznjw-rtbh cb25 116-100 mg cap Take by mouth. allopurinol (ZYLOPRIM) 300 mg tablet Take 300 mg by mouth once daily. omeprazole (PRILOSEC) 40 mg capsule Take 40 mg by mouth once daily. lutein 40 mg cap Take by mouth. prednisoLONE acetate (PRED FORTE) 1 % ophthalmic suspension USE DIRECTED BY PHYSICIAN, IN OPERATIVE EYE, BEGINNING ONE DAY AFTER SURGERY keTORolac (ACULAR) 0.5 % ophthalmic solution USE DIRECTED BY PHYSICIAN, IN OPERATIVE EYE, BEGINNING ONE DAY AFTER SURGERY ALLERGIES No Known Allergies REVIEW OF SYSTEMS General: No weight loss, malaise or fevers. 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 No history of respiratory/pulmonary symptoms or problems. Cardiovascular: Negative for Recent SC, Angina, Arrhythmia, Chest Pain, CHF GI: No history of GI symptoms or problems. No history of esophageal varices, recent ascites, or ETOH greater than 2 drinks per day. + GERD : No history of dysuria, frequency or incontinence,, stones or chronic kidney disease BIODIESEL ENGINE SPECIALIST: N/A : N/A, No LMP for male [...] Negative for lesions, rash and itching. Objective BP 141/99 Temp (Src) 98 (Temporal) Resp 16 SpO2 96% O2 Therapy: Room Air PHYSICAL EXAM: The remainder of the physical exam is noncontributory. GENERAL: Alert, no distress, cooperative LUNGS: Lungs clear to auscultation, Good diaphragmatic excursion CARDIAC: Pulse irregular FUNCTIONAL STATUS: Do light work around the house, such as dusting or washing dishes (2.70 METs) Take care of self, that is eating, dressing, bathing, using the toilet (2.75 METs) Airway: Mouth opening: greater than 2 fingerbreadths TMJ: full ROM MP score: MP 2 Dentition: intact Neck flex/ext: Flex: full ROM, Extension: full ROM this patient is optimized for surgery Planned anesthetic:MAC Assessment/Plan Other specified hypothyroidism Assessment: Stable on Levothyroxine (Synthroid) GERD (gastroesophageal reflux disease) Assessment: Well controlled with PPI Paroxysmal atrial fibrillation (HCC) Assessment: Stable, rate controlled. Follows with PCP. On DOAC and BB. Provisional Diagnosis/Treatment Plan: cataract/PHACO IOL RIGHT SIGNATURE: Vivian Quesada APRN.CNP PATIENT NAME: Marcelino Morales DATE: 03/16/2024 TIME: PAGER: NICK POSTPROC EVAL Observed: 02/10/2024 1:00 PM Status: COMPLETED Source: [facility] HNO ID: [id number] Author: LORETTA BARRY MD Service: Anesthesiology Author Type: Anesthesiologist Type: Anesthesia Postprocedure Evaluation Filed: 02/10/2024 13:00 Note Text: POST ANESTHESIA EVALUATION NOTE : 1940 Procedure Summary Date: 02/10/24 Room / Location: [address] Anesthesia Start: 1237 Anesthesia Stop: 1253 Procedures: PHACOEMULSIFICATION CATARACT IMPLANT INTRAOCULAR LENS W/O ENDOSCOPIC CYCLOPHOTOCOAGULATION (Left: Eye) OPHTHALMIC BIOMETRY BY PARTIAL COHERENCE INTERFEROMETRY W/INTRAOCULAR LENS POWER CALCULATION (Left: Eye) Diagnosis: 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 PACU/ICU Patient Condition: stable. Anticipated Disposition: phase 2 then home. Neurological Status: aware and responsive. Pulmonary Status: breathing comfortably on room air Airway Control: returned to baseline unsupported. Cardiovascular Status: stable. Pain Management: clinically adequate Postoperative Hydration: acceptable. Intraoperative Events: no significant anesthesia events Recommendation: continue current plan of care. Anesthesia Observations No Documentation SIGNATURE: Loretta Barry MD PATIENT NAME: Marcelino Morales DATE: February 10, 2024 TIME: 1:00 PM CSN: [id number] OPERATIVE NO Observed: 02/10/2024 12:37 PM Status: COMPLETED Source: [facility] ID: [id number] Author: KRISTIN HALEY MD Service: Ophthalmology Author Type: Physician Type: Operative Report Filed: 02/10/2024 12:52 Note Text: OPERATIVE REPORT DATE OF SERVICE: February 10, 2024 PRIMARY SURGEON: Kristin Haley M.D. COLD MILL SUPERVISOR: None [Any nurse listed as assisting or otherwise participating in this patient's care in the operating room has solely performed the duties of a circulating nurse.] Procedure(s) (LRB): PHACOEMULSIFICATION CATARACT IMPLANT INTRAOCULAR LENS W/O ENDOSCOPIC CYCLOPHOTOCOAGULATION (Left) OPHTHALMIC BIOMETRY BY PARTIAL COHERENCE INTERFEROMETRY W/INTRAOCULAR LENS POWER CALCULATION (Left) ANESTHESIA: Topical with monitored anesthesia care. PREOPERATIVE DIAGNOSIS: Combined cataract POSTOPERATIVE DIAGNOSIS: Combined cataract, presbyopia OPERATIVE INDICATIONS: BAT <20/400 OPERATIVE PROCEDURE: The patient was admitted to the operating suite where an IV and BP, EKG, and O2 monitors were placed. The operative eye was pretreated with 2.5% tropicamide and 1% phenylephrine eye drops. The operative eye was confirmed and marked. The intended Intraocular lens model and power circled on the patient's source document was confirmed to match the intraocular lens model and power selected from the Intraocular lens consignment, in accordance with hospital intraocular lens verification policy. Nasal oxygen was administered. With the patient in the supine position, topical lidocaine 4% was placed in the eye. The patient was then prepped and draped in the usual sterile fashion for intraocular surgery. After a time-out confirming correct patient using two unique identifiers, correct eye, correct operation, presence of allergies, correct implant, and implant sterility date, an eyelid speculum was placed. Under the operating microscope a beveled clear corneal incision was created temporally with a Solomon blade then a 2.4 mm keratome. The anterior chamber was reformed with Viscoat, after which the anterior capsule was opened centrally. Using the Utrata forceps a continuous curvilinear capsulorrhexis of approximately 5.5 mm round was created. Gentle hydrodissection was accomplished using preservative-free lidocaine on a 27-gauge cannula. Using the Abebe phacoemulsification unit with the [employer] curved tip, the anterior chamber was entered and the nucleus was removed while it was in the bag. The epinuclear ring was dissected into several segments, then removed using the phacoemulsification unit set to the desired aspiration flow rate and ultrasound parameters. It was necessary to use chopper forceps at various intervals to aid in the fragmentation of the dense lens material. Great care was taken not to violate the posterior capsule. The silicone-tipped I and A instrument was used to remove the cortex and buff off any remaining cataractous material from the posterior capsule. The capsular bag was then reformed with Discovisc and the following Intraocular lens implant Implant Name Type Inv. Item Serial No. Balloon Sander Lot No. LRB No. Used Action Model No. [id number] [employer] - [id number] Intraocular Lens [id number] [employer] [id number] [employer] Left 1 Implanted [id number] was inserted through the lips of the wound into the capsular bag. I have reviewed the images and report from the Ophthalmic Biometry February 10, 2024 to determine the Intraocular lens Power Calculation for the IOL lens implant. I have interpreted and agree with the calculation of the IOL as listed above. Using the I and A instrument, the Discovisc was removed from the anterior chamber and capsular bag, and the implant was centered. Cefuroxime 1mg in 0.1 mL normal saline was introduced into the anterior chamber through the clear corneal incision using a 30 gauge cannula. The wound was checked and found to be watertight. At the end of the procedure, the cornea was clear, the anterior chamber was deep and clear, the pupil was round, the implant was centered within the capsular bag, and the posterior capsule was intact. The eyelid speculum was removed and prednisolone acetate 1% and timolol 0.5% eye drops were administered. A shield was affixed over the eye and the patient was sent to the recovery room, leaving the operating room in excellent condition. ESTIMATED BLOOD LOSS: <1mL SPECIMEN: None FINDINGS: Age-related cataract COMPLICATIONS: None Incision/Procedure Start Time: 12:44 PM Incision Close/Procedure End Time: 12:51 PM - [facility] with Dr Chow[facility] Kristin HLAEY MD ANES PRE-OP Observed: 02/10/2024 12:30 PM Status: COMPLETED Source: [facility] HNO ID: [id number] Author: LORETTA BARRY MD Service: Anesthesiology Author Type: Anesthesiologist Type: Anesthesia Preprocedure Evaluation Filed: 02/10/2024 12:31 Note Text: ANESTHESIOLOGY DAY OF SURGERY NOTE : 1940 Procedure Information Date/Time: 02/10/24 1155 Procedures: PHACOEMULSIFICATION CATARACT IMPLANT INTRAOCULAR LENS W/O ENDOSCOPIC CYCLOPHOTOCOAGULATION (Left: Eye) OPHTHALMIC BIOMETRY BY PARTIAL COHERENCE INTERFEROMETRY W/INTRAOCULAR LENS POWER CALCULATION (Left: Eye) Location: [place] [address] / [facility] Surgeons: Kristin Haley V, MD Estimated body mass index is 28.02 kg/m? as calculated from the following: Height as of 02/04/24: 188 cm (6' 2 ). Weight as of 02/04/24: 99 kg (218 lb 4.1 oz). Most recent hematocrit and potassium results: No results found for this basename: HCT,HEMATOCRIT,K,POTASSIUM Relevant Problems CARDIO (+) Paroxysmal atrial fibrillation (HCC) ENDO (+) Other specified hypothyroidism GI (+) GERD (gastroesophageal reflux disease) I - PHYSICAL EVALUATION AIRWAY Patient intubated: No. Tracheostomy tube not present Mallampati: II. TM distance: >3 FB. Neck ROM: full ROM without neurological symptoms. Mouth opening: adequate. Short neck: yes. Thick neck: yes DENTAL Normal dental observations. Dental findings: teeth intact and chipped. Additional exam findings: yes. CARDIOVASCULAR Normal cardiovascular observations. Rhythm: regular Rate: normal PULMONARY Normal pulmonary observations. Breath sounds clear to auscultation. II - ANESTHESIA PLAN ASA Score: 3 Anesthetic Plan: MAC The patient is not a current smoker. NPO Status: adequate Beta Miguelangel Monitoring Plan Monitoring plan: standard ASA. Post Procedure Analgesic Plan Postoperative analgesic plan: multimodal analgesia. Informed Consent Anesthetic risks, benefits, alternatives, personnel and consent discussed: yes. Patient / Responsible Democrat agrees to proceed: yes Patient / Surrogate agrees to blood products: yes Significant changes in the patient condition since the History and Physical, not otherwise documented in primary service progress note: no. Potential Anesthesia issues that may suggest increased risk of complications or contraindication to planned procedure: none. Vitals Value Taken Time BP 183/100 02/10/24 1229 Pulse Resp 18 02/10/24 1229 Temp 36.3 ?C (97.4 ?F) 02/10/24 1229 SpO2 97 % 02/10/24 1229 Facility-Administered Medications as of 02/10/2024 Medication Dose Route Frequency NaCl 0.9% iv infusion 30 mL/hr INTRAVENOUS CONTINUOUS [COMPLETED] lidocaine HCl (PF) 40 mg/mL 2 mg injection (XYLOCAINE) 0.05 mL LEFT EYE EVERY 5 MINUTES X 3 DOSES [COMPLETED] PHENYLephrine 2.5 % 1 Drop (AK-DILATE, YUNI-SYNEPHRINE) 1 Drop LEFT EYE EVERY 5 MINUTES X 3 DOSES [COMPLETED] tropicamide 1 % 1 Drop (MYDRIACYL) 1 Drop LEFT EYE EVERY 5 MINUTES X 3 DOSES cyclopentolate 1 % 1 Drop (CYCLOGYL) 1 Drop LEFT EYE Pre-Op PRN [COMPLETED] keTORolac 0.5 % 1 Drop (ACULAR) 1 Drop LEFT EYE q 5 MIN [COMPLETED] Povidone-Iodine 5 % 30 mL ophth soln (BETADINE) 30 mL LEFT EYE ONCE [COMPLETED] balanced salts 15 mL (BSS) 15 mL LEFT EYE ONCE Outpatient Medications as of 02/10/2024 Medication Sig prednisoLONE acetate (PRED FORTE) 1 % ophthalmic suspension USE DIRECTED BY PHYSICIAN, IN OPERATIVE EYE, BEGINNING ONE DAY AFTER SURGERY keTORolac (ACULAR) 0.5 % ophthalmic solution USE DIRECTED BY PHYSICIAN, IN OPERATIVE EYE, BEGINNING ONE DAY AFTER SURGERY levothyroxine (SYNTHROID) 50 mcg tablet Take 1 tablet by mouth every afternoon. liothyronine (CYTOMEL) 5 mcg tablet Take 2 tablets by mouth every afternoon. I have interviewed and examined the patient. I have reviewed the medical record and/or the pre-anesthesia evaluation, pertinent labs, and test results. This contains updated information obtained within 48 hours of Surgery/Procedure. SIGNATURE: Loretta Barry MD PATIENT NAME: Marcelino Morales DATE: February 10, 2024 TIME: 12:30 PM CSN: [id number] PROGRESS Observed: 02/04/2024 1:45 PM Status: COMPLETED Source: [facility] HNO ID: [id number] Author: MARYJANE FRANCISCO COA Service: ? Author Type: Auctioneer Automobile Type: Progress Notes Filed: 02/04/2024 13:46 Note Text: Confirmed Aim: [place] OU PATIENT UNDERSTANDS HE WILL NEED GLASSES FOR NEAR AND INTERMEDIATE VISION. RANJIT Thakur February 04, 2024 1:45 PM HISTORY PHYSICAL Observed: 02/04/2024 1:04 PM Status: COMPLETED Source: [facility] HNO ID: [id number] Author: JOHAN CACERES APRN.EBONY Service: ? Author Type: Nurse Practitioner Type: H&P Filed: 02/04/2024 13:23 Note Text: HISTORY AND PHYSICAL EXAMINATION SERVICE DATE: 02/04/2024 SERVICE TIME: 1:05 PM PRIMARY CARE PHYSICIAN: Ulysses Glover MD REASON FOR VISIT: Marcleino Morales is a 83 year old male who [...] BMI less than or equal to 35 kg/m2 Does not have a large neck STOP-Bang Score: 2 [id number] Score: Age: >=75 Sex: male CHF history: No Hypertension history: No Stroke/TIA/thromboembolism history: No Vascular disease history: No Diabetes history: No [id number] Score: 2 ARISCAT Score: Age: >80 Preoperative [...] Verdin present: no Lip Bite Test: I Microretrognathia/Micronagthia/Recessed Chin: No DENTAL Normal dental observations. II [...] mg by mouth once daily. Taking Yes [id number] cb25 116-100 mg cap Take by mouth. Taking Yes allopurinol (ZYLOPRIM) 300 mg tablet Take 300 mg by mouth once daily. Taking Yes omeprazole (PRILOSEC) 40 mg capsule Take 40 mg by mouth once daily. Taking Yes lutein 40 mg cap Take by mouth. Taking Yes No medication comments found. ALLERGIES No Known Allergies Covid Immunization Dates Overdue - Covid-19 Vaccine (2022- season) Never done No completion, postpone, frequency change, or communication history exists for this topic. REVIEW OF SYSTEMS: PAIN ASSESSMENT: General: No weight loss, malaise or fevers. 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 No history of respiratory/pulmonary symptoms or problems. Cardiovascular: Negative for Recent SC, Angina, Arrhythmia, Chest Pain, CHF GI: No history of GI symptoms or problems. No history of esophageal varices, recent ascites, or ETOH greater than 2 drinks per day. + GERD : No history of dysuria, frequency or incontinence,, stones or chronic kidney disease BIODIESEL ENGINE SPECIALIST: N/A : N/A, No LMP for male [...] 4.1 oz (99.0kg) SpO2 97% BMI 28.01 kg/(m2). General: Alert and oriented, No acute distress Skin: Normal color, no rash, no lesions. HEENT: Defer to surgeon Cardiovascular: Normal S1 AND S2, no rubs, murmurs or gallops. No [...] instructions and voices comprehension and compliance. SIGNATURE: Johan Caceres APRN.CNP PATIENT NAME: Marcelino Morales DATE: 02/04/2024 TIME: 1:10 PM ALLERGIES DATE TYPE / CODE NAME / CODE REACTION SEVERITY SOURCE Drug Class/[id number](SNO MED CT) NO KNOWN ALLERGIES [facility] ENCOUNTERS ADMIT/DISCHARGE ACCOUNT NUMBER ADMITTING ENCOUNTER CLASS LOCATION SOURCE 03/16/2024/03/16/20 [id number] [id number] MAR[facility]A ELENA-014Bed: L010-14 [facility] 02/10/2024/02/10/20 [id number] [facility][id number]: MARÍA ELENA-008Bed: L010-08 [facility] 02/04/2024[facility]02/04/[id number]/04/2024[facility]02/04/[id number] PAYERS ENCOUNTER GUARANTOR PAYER SUBSCRIBER SOURCE 03/16/2024 Primary Insurance:AETNA MEDICARE PPOPolicy Number: [id number] Date:3121-06-23Hoht Name:Nate MORALESB: [id number] [address] [address] [facility] 02/10/2024 Primary Insurance:AETNA MEDICARE PPOPolicy Number: [id number] Date:3572-25-16Qwzl Name:Nate JEANB: [id number] [address] [address] [facility] 02/04/2024 Primary Insurance:AETNA MEDICARE PPOPolicy Number: [id number] Date:7211-10-90Kcfg Name:Nate COOL: [id number] [address] [address] [facility] 02/04/2024 Primary Insurance:AETNA MEDICARE PPOPolicy Number: [id number] Date:4404-55-11Cyeu Name:Nate COOL: [id number] [address] [address] [facility]
--- OUTSIDE RECORDS SUMMARY | 2024-09-22 12:04 | XMS_ITS ---
Author Organization [facility] in [place] Address [address] [place] [address] Care Team Providers Care Cartographic Designer Name Role Phone Ashwin Glover Primary Care Provider REASON FOR VISIT Citalopram script Medications Medication SIG (Take, Route, Frequency, Duration) Notes Start Date End Date Status Citalopram Hydrobromide 40 MG 1 tablet Orally Once a day for 90 days Active Encounters Encounter Location Date Provider Diagnosis [facility] [address] [place] [address] 09/22/2024 Ashwin Glover Hypertension I10 Assessments Encounter Date Diagnosis (ICD Code) Assessment Notes Treatment Notes Treatment Clinical Notes Section Notes 09/22/2024 Hypertension (ICD-10 - I10) Plan Of Treatment Medication Medication Name Sig Start Date Stop Date Notes Citalopram Hydrobromide 40 MG 1 tablet O rally Once a day for 90 days Progress Notes * Marcelino MURILLO BDOB:1940 (84 yo M)Acc No.[id number]:09/22/2024 Patient: Jovany Marcelino TAMAYO :1940 A ge:84 Y S ex:Male Address:[address] [place] [address] * Refills Refill Citalopram Hydrobromide Tablet, 40 MG, Orally, 90, 1 tablet, Once a day, 90 days, Refills=3 * true * Date: Generated for Printi ng/Faxing/eTransmitting on: 0 01/31/2025 07:48 AM EDT
--- OUTSIDE RECORDS SUMMARY | 2025-01-23 04:38 | XMS_ITS ---
Author Organization The [facility] in [place] Address [address] [place] [address] Care Team Providers Care Cleater Name Role Phone Ashwin Glover Primary Care Provider REASON FOR VISIT yearly appointment -LMTCB Encounters Encounter Location Date Provider Diagnosis [facility] [address] [place] [address] 01/23/2025 Ashwin Glover Plan Of Treatment No Information Progress Notes * Marcelino MURILLO BDOB:1940 (84 yo M)Acc No.[id number]:01/23/2025 Patient: Marcelino CURIEL :1940 A ge:84 Y S ex:Male Address:[address] [place] [address] * true * Date: Generated for Printi ng/Fasmileyg/eTransmitting on: 0 01/31/2025 07:48 AM EDT
--- OUTSIDE RECORDS SUMMARY | 2025-01-31 07:48 | XMS_ITS | Clinical Summary ---
Author Organization [facility] Address [address] [place] [address] Care Team Providers Care Liquor Tester Name Role Phone Unavailable Primary Care Provider Unavailabl e Social History Tobacco Use Types Packs/Day Years Used Date Smoking Tobacco: Never Assessed Sex and Gender Information Value Date Recorded Sex Assigned at Not on file Legal Sex Male 7:16 PM EDT Gender Identity Not on file Sexual Orientation Not on file Last Filed Vital Signs Vital Sign Reading Time Taken Comments Blood Pressure 138/88 06/11/2020 12:00 PM EDT Pulse - - Temperature - - Respiratory Rate - - Oxygen Saturation - - Inhaled Oxygen Concentration - - Weight 97.1 kg (214 lb) 06/11/2020 12:00 PM EDT Height 182.9 cm (6') 06/11/2020 12:00 PM EDT Body Mass Index 29.02 06/11/2020 12:00 PM EDT Plan of Treatment Not on file
--- OUTSIDE RECORDS SUMMARY | 2025-01-31 07:48 | XMS_ITS | Clinical Summary ---
Author Organization [facility] Address [address] [facility] [place] [address] Phone Care Team Providers Care Tobacco Baler Name Role Phone Unavailable Primary Care Provider Unavailabl e Social History Tobacco Use Types Packs/Day Years Used Date Smoking Tobacco: Never Assessed Sex and Gender Information Value Date Recorded Sex Assigned at Not on file Legal Sex Male 12:58 PM EST Gender Identity Not on file Sexual Orientation Not on file Plan of Treatment Not on file
--- OUTSIDE RECORDS SUMMARY | 2025-01-31 07:49 | XMS_ITS | Patient Health Record ---
Author Organization [facility] in [place] Address [address] [place] [address] Care Team Providers Care Plumbing Manager Name Role Phone Ashwin Glover Primary Care Provider [phone] ULYSS[address] GLOVER Unavailable [phone] Allergies Allergen (clinical drug ingredient) Drug/Non Drug Allergy documented on EMR Reaction Allergy Type Onset Date Status Tape rash Allergy Active Results Component Value Reference Range Notes LIPID PROFILE Reviewed date:02/10/2024 08:44:54 AM Interpretation: Performing Lab: Notes/Report: [facility] , Triglycerides 44 <=150 mg/dL Cholesterol 110 <=200 mg/dL HDL Cholesterol 39 40-60 mg/dL > or =60 mg/dl - LOW CARDIOVASCULAR RISK <40 mg/dl - HIGH CARDIOVASCULAR RISK LDL Cholesterol Calculated 63.0 <100 mg/dl OPTIMAL 100-129 mg/dl NEAR OR ABOVE OPTIMAL 130-159 mg/dl BORDERLINE HIGH 160-189 mg/dl HIGH >190 mg/dl VERY HIGH VLDL CHOLESTEROL 8.8 Chol HDL Ratio 2.8 3.3 - 4.4 LOW RISK 4.4 - 7.1 AVERAGE RISK 7.1 - 11.0 MODERATE RISK >11.0 HIGH RISK Performing Lab: see note ML - [facility] Reason For Referral No Information Medications Medication SIG (Take, Route, Frequency, Duration) Notes Start Date End Date Status Allopurinol 300 MG 1 tablet Orally Once a day for 90 days Active Glucosamine 750 MG 1 tablet Orally BID Active Levothyroxine Sodium 50 MCG 1 tablet in the morning on an empty stomach Orally Once a day for 90 days 12/07/2023 Active Lutein 40 MG 1 capsule with a clare l Orally Once a day Active Memantine HCl ER 28 MG 1 capsule Orally Once a day for 90 days 01/20/2024 Active B12 5000 MCG as directed Sublingu al Daily Active Cytomel 5 MCG 2 tablets Orally Onc e a day for 90 days Active Rivastigmine Tartrate 6 MG 1 capsule wit h food Orally Twice a day for 90 days Active Eliquis 5 MG 1 tablet Orally Twic e a day for 90 days Active Zinc 50 MG 1 tablet Orally Once a day Active Psyllium Fiber 0.52 GM 2 capsules with 8 ounces of liquid Orally Daily Active Pristiq 50 MG 1 tablet Orally Once a day for 30 days 01/27/2025 Active Multivitamin Active [place]gin 3-6-9 - as directed Orally Daily Active Omeprazole 40 MG TAKE 1 CAPSULE ONCE DAILY 30 MINUTES BEFORE MORNING MEAL for 90 Active Prevagen Extra Strength 20 MG 2 capsules Orally at bedtime 01/20/2024 Active Social History Tobacco Use: Social History Observation Description Date Details (start date - stop date) Never Smoker NA - NA Tobacco Use/Smoking Question Answer Notes Patient is a nonsmoker Alcohol Screen (Audit-C) Question Answer Notes Did you have a drink containing alcohol in the p ast year? No Points 0 Interpretation Negative Problems Problem Type SNOMED Code ICD Code Onset Dates Problem Status W/U Status Risk Notes Problem 77581722 Hypothyroidism, unspecified (E03.9) Active confirmed Problem Benign neoplasm of skin (71567759) Other benign neoplasm of skin, unspecified (D23.9) Active confirmed Problem Right bundle branch block (06646184) Other right bundle-branch block (I45.19) Active confirmed Problem Hypertension (13833155) Hypertension (I10) Active confirmed Problem Left ventricular hypertrophy (43008048) Left ventricular hypertrophy (I51.7) Active confirmed Problem Gout (59406975) Gout (M10.9) Active confirmed Problem Mitral valve disorde r (03798525) Mild mitral regurgitation (I34.0) Active confirmed Problem Paroxysmal atrial fibrillation (217424754) Paroxysmal atrial fibrillation (I48.0) Active confirmed Problem Lumbar radiculopathy (319645018) Lumbar radiculopathy (M54.16) Active confirmed Problem Acute pharyngitis (728019000) Acute pharyngitis (J02.9) Active confirmed Problem Degenerative disc disease (07322099) DDD (degenerative disc disease), lumbar (M51.36) Active confirmed Problem Shingles (8475563) Shingles (B02.9) Active confirmed Problem Functional visual lo ss (205351126) Vision loss (H54.7) Active confirmed Problem Elbow pain (30952296) Elbow pain (M25.529) Active confirmed Problem Peripheral vertigo (00816876) Vertigo, peripheral (H81.399) Active confirmed Problem Tubulovillous adenom a of colon (8582925558) 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 ([place], [place]) [address] [place] [address] 01/27/2025 Ashwin Hoy Hypertension I10 ; L eft ventricular hypertrophy I51.7 ; Paroxysmal atrial fibrillation I48.0 ; Pure hypercholesterolemia, unspecified E78.00 and Hypothyroidism, unspecified E03.9 [facility] [address] [place] [address] 02/02/2024 ULYSSES HOY Hypothyroidism, unspecified E03.9 and Hypertension I10 [facility] [address] [place] [address] 02/17/2024 ULYSSES HOY Hypertension I10 and Hypothyroidism, unspecified E03.9 [facility] ([place], [place]) [address] [place] [address] 05/17/[address] [facility] ([place] [place] [address] [place] [address] 09/22/2024 Ashwin Hoy Hypertension I10 [facility] ([place] [place] [address] [place] [address] 09/22/2024 Ashwin Belen Hypertension I10 [facility] [place] [address] [facility] [place] [address] 01/23/2025 Ashwin Glover Assessments Encounter Date Diagnosis (ICD Code) Assessment Notes Treatment Notes Treatment Clinical Notes Section Notes 01/27/2025 Hypertension (ICD-10 - I10) 01/27/2025 Left ventricular hypertrophy (ICD-10 - I51.7) 02/02/2024 Hypothyroidism, unspecified (ICD-10 - E03.9) 02/17/2024 Hypertension (ICD-10 - I10) 09/22/2024 Hypertension (ICD-10 - I10) 09/22/2024 Hypertension (ICD-10 - I10) 02/02/2024 Hypertension (ICD-10 - I10) 02/17/2024 Hypothyroidism, unspecified (ICD-10 - E03.9) 01/27/2025 Paroxysmal atrial fibrillation (ICD-10 - I48.0) 01/27/2025 Pure hypercholesterole chuy, unspecified (ICD-10 - E78.00) 01/27/2025 Hypothyroidism, unspecified (ICD-10 - E03.9) Plan Of Treatment Pending Test Test Name Order Date CMP (COMPLETE METABOLIC PANEL) 3 CMP (COMPLETE METABOLIC PANEL) 4 HEMOGLOBIN A1C (GLYCO) 01/20/2023 HEMOGLOBIN A1C (GLYCO) 01/20/2024 HEMOGLOBIN A1C (GLYCO) 01/27/2025 INSULIN, TOTAL 01/27/2025 INSULIN, TOTAL 01/20/2023 IRON, TOTAL 01/20/2024 LIPID PANEL (CHOL/TRIG/HDL/LDL) 01/20/20 24 LIPID PANEL (CHOL/TRIG/HDL/LDL) 01/21/20 23 LIPID PANEL (CHOL/TRIG/HDL/LDL) 01/28/20 25 CBC WITH DIFF 01/20/2023 CBC WITH DIFF 01/20/2024 PSA, PROSTATE-SPECIFIC ANTIGEN 3 URIC ACID 01/20/2023 VITAMIN D, 25 LEVEL (TOTAL) 01/20/2024 High Sensitivity Troponin 01/27/2025 BNP 01/27/2025 LIPID PROFILE 01/21/2023 LIPID PROFILE 01/20/2024 VIT B12 AND FOLATE 01/27/2025 VITAMIN D 25 OH 01/27/2025 THYROID PANEL (T4/TSH/FREE T3) 3 THYROID PANEL (T4/TSH/FREE T3) 3 THYROID PANEL (T4/TSH/FREE T3) 4 THYROID PANEL (T4/TSH/FREE T3) 5 PSA, SCREENING 01/27/2025 CMP (COMP MET NAYLOR) w/eGFR CKD-EPI 2024 CBC WITH DIFF 01/27/2025 Insurance Providers Payer Name Payer Address Payer Phone Subscriber Number Group Number Insured Name Patient Relationship to Insured Coverage Start Date Coverage End Date [employer] [address] [place] [phone] [id number] Marcelino Murillo Self - patient is the insured Medical (General) History Medical History History ICD Code Vertigo, peripheral H81.399 Lumbar radiculopathy M54.16 Acute pharyngitis J02.9 Other benign neoplasm of skin, unspecifi ed D23.9 Elbow pain M25.529 Other right bundle-branch block I45.19 Mild mitral regurgitation I34.0 Paroxysmal atrial fibrillation I48.0 Vision loss H54.7 Tubulovillous adenoma of colon D12.6 Bursitis of knee, right M70.51 Gout M10.9 Hypertension I10 Left ventricular hypertrophy I51.7 Pure hypercholesterolemia, unspecified E 78.00 DDD (degenerative disc disease), lumbar M51.36 Shingles B02.9 Surgical History Surgery Date(Month/Year) kidney removed Cyst removal on stomach and right elbow Vasectomy
--- OUTSIDE RECORDS SUMMARY | 2025-01-31 07:49 | XMS_ITS | Clinical Summary ---
Author Organization [facility] Address [address] [place] [id number] Care Team Providers Care Switchboard Installer Name Role Phone Brett Glover MD Primary Care Provider [phone] Allergies No known active allergies Medications levothyroxine (SYNTHROID) 50 mcg tablet Take 1 tablet by mouth every afternoon. 4 Active liothyronine (CYTOMEL) 5 mcg tablet Take 2 tablets by mouth every afternoon. 4 Active apixaban (ELIQUIS) 5 mg tab(s) Take by mouth two times a day. Active BABY ASPIRIN ORAL Take by mouth. Activ e fish,bora,flax oils-om3,6,9no1 (OMEGA 3-6-9) 1,200 mg cap Take by mouth. Ac tive zinc sulfate (ZINC-220) 220 mg (50 mg zinc) capsule Take 220 mg by mouth once daily. Active glucosam-chondr oitin-diet cb25 116-100 mg cap Take by mouth. Active allopurinol (ZYLOPRIM) 300 mg tablet Take 300 mg by mouth once daily. Active omeprazole (PRILOSEC) 40 mg capsule Take 40 mg by mouth once daily. Active lutein 40 mg cap Take by mouth. Activ e rivastigmine tartrate (EXELON) 3 mg capsule Take 1 capsule by mouth every 12 hours. 4 Active memantine XR (NAMENDA XR) 14 mg CSpX capsule Take 28 mg by mouth once daily. Active psyllium seed/bran (PSYLLIUM-BRAN ORAL) Take by mouth. Activ e prednisoLONE acetate (PRED FORTE) 1 % ophthalmic suspension USE DIRECTED BY PHYSICIAN, IN OPERATIVE EYE, BEGINNING ONE DAY AFTER SURGERY 5 mL 4 Active keTORolac (ACULAR) 0.5 % ophthalmic solution USE DIRECTED BY PHYSICIAN, IN OPERATIVE EYE, BEGINNING ONE DAY AFTER SURGERY 5 mL 4 Active prednisoLONE acetate (PRED FORTE) 1 % ophthalmic suspension USE DIRECTED BY PHYSICIAN, IN OPERATIVE EYE, BEGINNING ONE DAY AFTER SURGERY 5 mL 4 Active keTORolac (ACULAR) 0.5 % ophthalmic solution USE DIRECTED BY PHYSICIAN, IN OPERATIVE EYE, BEGINNING ONE DAY AFTER SURGERY 5 mL 4 Active Active Problems Problem Noted Date Diagnosed Date Other specified hypothyroidism 02/04/2024 Assessment & Plan (02/04/2024 1:09 PM EDT): Assessment: Stable on Levothyroxine (Synthroid) GERD (gastroesophageal reflux disease) Assessment & Plan (02/04/2024 1:09 PM EDT): Assessment: Well controlled with PPI Paroxysmal atrial fibrillation 02/04/2024 Assessment & Plan (02/04/2024 1:21 PM EDT): Assessment: Stable, rate controlled. Follows with PCP. On DOAC and BB. Family History Medical History Relation Comments Anesthesia Problems No Family History Social History Tobacco Use Types Packs/Day Years Used Date Smoking Tobacco: Never Smokeless Tobacco: Never Tobacco Cessation:Counseling Given: Not Answered Alcohol Use Standard Drinks/Week Comments Not Currently 0 (1 standard drink = 0.6 oz pur e alcohol) Area Deprivation Index Answer Date Bo[place] rded National Score (1-100), lower number is lower ri sk 63 01/20/2024 State Score (1-10), lower number is lower risk 4 01/20/2024 Data from: https://www.neighborhoodatlas.medicine.[facility].edu/. Last address used for calculation [address] [address] 01/20/2024 Sex and Gender Information Value Date Recorded Sex Assigned at Not on file Legal Sex Male 8:55 AM EST Gender Identity Not on file Sexual Orientation Not on file Last Filed Vital Signs Vital Sign Reading Time Taken Comments Blood Pressure 160/72 03/16/2024 10:58 AM EDT Pulse 56 03/16/2024 10:58 AM EDT Temperature 36.3 C (97.4 F) 03/16/2024 10:46 AM EDT Respiratory Rate 16 03/16/2024 10:58 AM EDT Oxygen Saturation 98% 03/16/2024 10:58 AM EDT Inhaled Oxygen Concentration - - Weight 99 kg (218 lb 4.1 oz) 02/04/2024 1:07 PM EDT Height 188 cm (6' 2 ) 02/04/2024 1:07 PM EDT Body Mass Index 28.02 02/04/2024 1:07 PM EDT Plan of Treatment Health Maintenance Due Date Last Done Comments Anxiety Screening 1958 Depression Screening 1958 DTaP,Tdap,Td Vaccine (1 - Tdap) 1959 Diabetes Screening 1985 Pneumococcal Vaccine: 50+ (1 of 1 - PCV) 1990 Shingrix Vaccine (1 of 2) 1990 RSV Vaccine (1 - 1-dose 75+ series) 2015 Covid-19 Vaccine ( - season) 2024 Advance Directive Discussion 09/07/2024 Influenza Vaccine (Season Ended) 2025 07/12/20 13 Medical Devices Implanted Type Area Manager Resort Device Identifier Shelf Expiration Date Model / Serial / Lot [id number] [facility] - [id number] Implanted:Qty : 1 on 02/10/2024 by Millie Haley V, MD at [facility] Intraocular Lens Left: Eye [employer] 07/13/2027 [id number] 0 / [id number] / Description:-0.18 [id number] [facility] - [id number] Implanted:Qty : 1 on 03/16/2024 by Millie Haley V, MD at [facility] Intraocular Lens Right: Eye [employer] 08/02/2027 [id number].20 5 / [id number] / Description:-[address] [place] [id number] [employer] Care Teams Switchboard Installer Relationship Specialty Start Date End Date Brett Glover MD [address] [place] [address] PCP - General Family Medicine 01/20/24
[2025-01-31 09:05] LABS: Basophils Percent Auto 0.5 % (0.2-2.0); Eosinophils Absolute Auto 0.2 10^3/uL (0.0-0.7); Eosinophils Percent Auto 3.1 % (0.9-7.0); Hematocrit 43.4 % (42.0-54.0); Hemoglobin 14.9 g/dL (14.0-18.0); Immature Granulocytes Abs Auto 0.01 10^3/uL (0.00-0.03); Immature Granulocytes Pct Auto 0.2 % (0.0-0.5); Lymphocytes Absolute Auto 2.1 10^3/uL (1.2-3.8); Mean Corpuscular HGB Conc 34.3 g/dL (29.9-35.2); Mean Corpuscular Hemoglobin 34.3 pg (25.9-34.0); Mean Corpuscular Volume 99.8 fL (80.0-94.0); Monocytes Absolute Auto 0.6 10^3/uL (0.3-0.8); Monocytes Percent Auto 10.5 % (1.7-12.0); Neutrophils Absolute Auto 3.1 10^3/uL (1.4-6.5); Neutrophils Percent Auto 50.7 % (43.0-75.0); Platelet Count 122 10^3/uL (150-450); Red Blood Count 4.35 10^6/uL (4.70-6.10); Red Cell Distribution Width 13.2 % (11.0-15.0); White Blood Count 6.1 10^3/uL (4.0-11.0)
[2025-01-31 10:07] LABS: Alanine Aminotransferase 32 U/L (16-63); Albumin Level 3.3 g/dL (3.4-5.0); Alkaline Phosphatase 92 U/L (46-116); Anion Gap 11.4; Aspartate Amino Transferase 25 U/L (15-37); Bilirubin Total 0.5 mg/dL (0.2-1.0); Calcium 9.4 mg/dL (8.5-10.1); Carbon Dioxide 32.2 mmol/L (21.0-32.0); Chloride 104 mmol/L (98-107); Estimated GFR (African America >60 (>=60 mL/min/1.73m^2); Estimated GFR (Non-African Ame >60 (>=60 mL/min/1.73m^2); Globulin 3.4 g/dL; Glucose 117 mg/dL (74-106); Potassium 4.6 mmol/L (3.5-5.1); Sodium 143 mmol/L (136-145); Thyroid Stimulating Hormone 0.326 uIU/mL (0.358-3.740); Total Protein 6.7 g/dL (6.4-8.2)
[2025-01-31 10:11] LABS: Free T4 0.94 ng/dL (0.76-1.46)
[2025-02-01 11:08] LABS: Vitamin B12 >2000 pg/mL (232-1245)
== END 2025-01-31 07:45 | disposition home or self-care (01) ==
LOC: LAB 07:44
PROVIDERS: PCP Family Medicine; Visit Provider Family Medicine
DX: R53.1 Weakness (principal); R53.83 Other fatigue; E03.9 Hypothyroidism, unspecified
CPT/HCPCS: 36415; 80053; 82140; 82306; 82607; 82728; 82746; 83540; 84439; 84443; 84550; 85025

== ENCOUNTER 2025-03-01 07:32 | Outpatient (REF) | payer MEDICARE, SELFPAY ==
--- OUTSIDE RECORDS SUMMARY | 2025-03-01 07:36 | XMS_ITS | CCD ---
Author Organization [facility] Care Team Providers Care Hand Surgeon Name Role Phone PHYSICIAN, DEFAULT Unavailable Unavailable PHYSICIAN, DEFAULT Unavailable Unavailable PHYSICIAN, DEFAULT Unavailable Unavailable PHYSICIAN, DEFAULT Unavailable Unavailable DAQUAN ., DR ARORA Attending Unavailable HOY ., DR ARORA Primary Care Unavailable HOY ., DR ARORA Admitting Unavailable HOY ., DR ARORA Admitting Unavailable HOY ., DR ARORA Attending Unavailable HOY ., DR ARORA Consulting Unavailable HOY ., DR ARORA Primary Care Unavailable Unavailable Primary Care Provider UnavailUlysses Martines MD Primary Care Provider [phone] ULYSSES GLOVER Primary Care Unavailable BRANDY V, KRISTIN Referring Unavailable BRANDY V, KRISTIN Referring Unavailable ULYSSES GLOVER Primary Care Unavailable BRANDY V, KRISTIN Referring Unavailable BRANDY V, KRISTIN Attending Unavailable BRANDY V, KRISTIN Admitting Unavailable BRANDY V, KRISTIN Referring Unavailable ULYSSES GLOVER Primary Care Unavailable BRANDY V, KRISTIN Attending Unavailable JUDITH CHOW Referring Unavailab le Medications Current Medications Medication Drug Class(es) Dates [...] on above: Take 2 tablets by mo [facility] every afternoon. lutein 40 mg oral capsule (3 sources) lutein 40 mg cap Take by mouth. 0 Active Comment on above: Take by mouth. 24 hr memantine hydrochloride 14 mg extended release oral capsule (1 source) U-lxwihx-D-aspartate Receptor Antagonist take 2 capsules by mouth [...] Documented Date Episodic/Chronic Blindness and vision defects (4 sources) Bilateral hyperopia of eyes; Translations: [Hypermetropia, bilateral] Onset: 02-10-2024 11-12-2023 Episodic Cardiac dysrhythmias (3 sources) Paroxysmal atrial fibrillation; Translations: [Paroxysmal atrial fibrillation] Onset: 02-04-2024 02-04-2024 Chronic Cataract (3 sources) Bilateral senile combined form cataracts of eyes; Translations: [Combined forms of age-related cataract, bilateral] Onset: 02-10-2024 11-02-2023 Chronic Esophageal disorders (3 sources) Gastroesophageal reflux disease; Translations: [Gastro-esophageal reflux disease without esophagitis] Onset: 02-04-2024 02-04-2024 Chronic Glaucoma (2 sources) Narrow angle; Translations: [Anatomical narrow angle, bilateral] Onset: 02-10-2024 11-12-2023 Chronic Other eye disorders (1 source) Tear film insufficiency of bilateral eyes; Translations: [Dry eye syndrome of bilateral lacrimal glands] 11-12-2023 Episodic Other eye disorders (1 source) Dry eye syndrome of bilateral lacrimal glands; Translations: [Insufficiency of tear film of both eyes] Onset: 02-10-2024 Episodic Thyroid disorders (3 sources) Hypothyroidism; Translations: [Other specified hypothyroidism] Onset: 02-04-2024 02-04-2024 Chronic Past or Other Problems Problem Classification Problem Date Documented Da te Episodic/Chronic Malaise and fatigue (4 sources) Weakness; Translations: [WEAKNESS] Onset: 02-12-2022 Episodic Results Test Name Value Interpretation Reference Range Facility ANES POSTPROC EVALon 024 ANES POSTPROC EVAL HNO ID: [id number] Author: LORETTA BARRY MD Service: Anesthesiology Author Type: Anesthesiologist Type: Anesthesia Postprocedure Evaluation Filed: 02/10/2024 13:00 Note Text: POST ANESTHESIA EVALUATION NOTE : 1940 Procedure Summary Date: 02/10/24 Room / Location: [address] Anesthesia Start: 1237 Anesthesia Stop: 1253 [...] February 10, 2024 TIME: 1:00 PM CSN: [id number] Normal [facility] ANES PRE-OPon 02-10-2024 ANES PRE-OP HNO ID: [id number] Author: LORETTA BARRY MD Service: Anesthesiology Author Type: Anesthesiologist Type: Anesthesia Preprocedure Evaluation Filed: 02/10/2024 12:31 Note Text: ANESTHESIOLOGY DAY OF SURGERY NOTE : 1940 Procedure Information Date/Time: 02/10/24 1155 Procedures: PHACOEMULSIFICATION CATARACT IMPLANT INTRAOCULAR LENS W/O ENDOSCOPIC CYCLOPHOTOCOAGULATION (Left: Eye) OPHTHALMIC BIOMETRY BY PARTIAL COHERENCE INTERFEROMETRY W/INTRAOCULAR LENS POWER CALCULATION (Left: Eye) Location: [address] Surgeons: Kristni Haley V, MD Estimated body mass index is 28.02 kg/m? as calculated from the following: Height as of 02/04/24: 188 cm (6' 2 ). Weight as of 02/04/24: 99 kg (218 lb 4.1 oz). Most recent hematocrit and potassium results: No results found for this basename: HCT,HEMATOCRIT,K,POTASS IUM Relevant Problems CARDIO (+) Paroxysmal atrial fibrillation [...] and consent discussed: yes. Patient / Responsible Constitution Party agrees to proceed: yes Patient / Surrogate [...] February 10, 2024 TIME: 12:30 PM CSN: [id number] Normal [facility] OPERATIVE NOon 02-10-2024 OPERATIVE NO HNO ID: [id number] Author: KRISTIN HALEY MD Service: Ophthalmology Author Type: Physician Type: Operative Report Filed: 02/10/2024 12:52 Note Text: OPERATIVE REPORT DATE OF SERVICE: February 10, 2024 PRIMARY SURGEON: Kristin Haley M.D. SOFTWARE SALES CONSULTANT: None [Any nurse listed as assisting or [...] corneal incision was created temporally with a [place] blade then a 2.4 mm keratome. The [...] Implant Name Type Inv. Item Serial No. Tin Flopper Lot No. LRB No. Used Action Model No. [id number] [employer] - [id number] Intraocular Lens [id number] [employer] [id number] [employer] Left 1 Implanted [id number] [...] 12:51 PM - Comanage with Dr Chow; [facility] POD #1 Kristin HALEY MD [facility] HISTORY PHYSICALon HISTORY PHYSICAL HNO ID: [id number] Author: JOHAN SANCHEZ APRN.[employer] Service: ? Author Type: Nurse Practitioner Type: H&P Filed: 02/04/2024 13:23 Note Text: HISTORY AND PHYSICAL EXAMINATION SERVICE DATE: 02/04/2024 SERVICE TIME: 1:05 PM PRIMARY CARE PHYSICIAN: Ulysses Glover MD REASON FOR VISIT: Marcelino Morales is a 83 year old male [...] have a large neck STOP-Bang Score: 2 [id number] Score: Age: >=75 Sex: male CHF history: No Hypertension history: No Stroke/TIA/thromboembol ism history: No Vascular disease history: No Diabetes history: No [id number] Score: 2 ARISCAT Score: Age: >80 Preoperative [...] Verdin present: no Lip Bite Test: I Microretrognathia/Micro nagthia/Recessed Chin: No DENTAL Normal dental observations. II [...] reflux disease) Hypothyroidism PAF (paroxysmal atrial fibrillation) ([facility]) PAST SURGICAL HISTORY Procedure Laterality Date COLONOSCOPY [...] afternoon. Taking Yes apixaban (ELIQUIS) 5 mg (more content not included)... Normal [facility] BNPon 01-20-2023 Natriuretic peptide B (Bld) [Mass/Vol] 1564.0 pg/mL Normal <=1,800.0 [facility] Comment on above: Performed By: #### L IPID, BNP, FT3, T4, URIC, TSH, MG, CMP #### [facility] [address] [place] [address] Dr. Lida Venegas CBC AUTO DIFFon 01-20-2023 BASO # 0.0 103/ul Normal 0.0-0.1 [facility] Comment on above: Performed By: #### A 1C #### [facility] [address] [place] [address] Dr. Lida Venegas Basophils/100 WBC (Bld) 0.4 % Normal 0.2-2.0 [facility] Comment on above: Performed By: #### A 1C #### [facility] [address] [place] [address] Dr. Lida Venegas EO # 0.0 103/ul Normal 0.0-0.7 [facility] Comment on above: Performed By: #### A 1C #### [facility] [address] [place] [address] Dr. Lida Venegas Eosinophils/100 WBC (Bld) 0.3 % Critically low 0.9-7.0 [facility] Comment on above: Performed By: #### A 1C #### [facility] [address] [place] [address] Dr. Lida Venegas Erythrocyte distribution width (RBC) [Ratio] 12.8 % Normal 11.0-15.0 [facility] Comment on above: Performed By: #### A 1C #### [facility] [address] [place] [address] Dr. Lida Venegas Hematocrit (Bld) [Volume fraction] 47.6 % Normal 42.0-54.0 [facility] Comment on above: Performed By: #### A 1C #### [facility] [address] [place] [address] Dr. Lida Venegas Hemoglobin (Bld) [Mass/Vol] 15.8 g/dL Normal 14.0-18.0 [facility] Comment on above: Performed By: #### A 1C #### [facility] [address] [place] [address] Dr. Lida Venegas IG # 0.03 10e3/ul Normal 0.00-0.03 [facility] Comment on above: Performed By: #### A 1C #### [facility] [address] [place] [address] Dr. Lida Venegas IG % 0.4 % Normal 0.0-0.5 [facility] Comment on above: Performed By: #### A 1C #### [facility] [address] [place] [address] Dr. Lida Venegas LYMPH # 1.7 103/ul Normal 1.2-3.8 [facility] Comment on above: Performed By: #### A 1C #### [facility] [address] [place] [address] Dr. Lida Venegas Lymphocytes/100 WBC (Bld) 23.9 % Normal 20.5-60.0 [facility] Comment on above: Performed By: #### A 1C #### [facility] [address] [place] [address] Dr. Lida Venegas MANUAL DIFF REQ NO Normal [facility] Comment on above: Performed By: #### A 1C #### [facility] [address] [place] [address] Dr. Lida Venegas MCH (RBC) [Entitic mass] 32.4 pg Normal 25.9-34.0 [facility] Comment on above: Performed By: #### A 1C #### [facility] [address] [address] [address] Lida Venegas MCHC (RBC) [Mass/Vol] 33.2 g/dL Normal 29.9-35.2 [facility] Comment on above: Performed By: #### A 1C #### [facility] [address] [address] [address] Lida Venegas MCV (RBC) [Entitic vol] 97.5 fL Critically high 80.0-94.0 [facility] Comment on above: Performed By: #### A 1C #### [facility] [address] [place] [address] Dr. Lida Venegas MONO # 0.4 103/ul Normal 0.3-0.8 [facility] Comment on above: Performed By: #### A 1C #### [facility] [address] [place] [address] Dr. Lida Venegas Monocytes/100 WBC (Bld) 5.9 % Normal 1.7-12.0 [facility] Comment on above: Performed By: #### A 1C #### [facility] [address] [place] [address] Dr. Lida Venegas NEUT # 4.8 103/ul Normal 1.4-6.5 [facility] Comment on above: Performed By: #### A 1C #### [facility] [address] [place] [address] Dr. Lida Venegas Neutrophils/100 WBC (Bld) 69.1 % Normal 43.0-75.0 [facility] Comment on above: Performed By: #### A 1C #### [facility] [address] [place] [address] Dr. Lida Venegas Platelet mean volume (Bld) [Entitic vol] 12.6 fL Normal 9.5-13.5 [facility] Comment on above: Performed By: #### A 1C #### [facility] [address] [place] [address] Dr. Lida Venegas PLT 138 103/ul Critically low 150-450 [facility] Comment on above: Performed By: #### A 1C #### [facility] [address] [address] [address] Lida Venegas RBC 4.88 106/ul Normal 4.70-6.10 [facility] Comment on above: Performed By: #### A 1C #### [facility] [address] [address] [address] Lida Venegas WBC 7.0 103/ul Normal 4.0-11.0 [facility] Comment on above: Performed By: #### A 1C #### [facility] [address] [address] [address] Lida Venegas FREE T3on 01-20-2023 FREE T3 1.75 pg/mlL Critically low 2.18-3.98 [facility] Comment on above: Performed By: #### L IPID, BNP, FT3, T4, URIC, TSH, MG, CMP #### [facility] [address] [address] [address] Lida Venegas GLYCOHEMOGLOBIN A1Con 2022 ADA RECOMMENDATION SEE BELOW Normal [facility] Comment on above: Result Comment: ADA RECOMMENDED LIMIT 4.0 - 6.0 ADA THERAPEUTIC TARGET < 7.0 ACTION SUGGESTED > 7.0 Performed By: #### A 1C #### [facility] [address] [place] [address] Dr. Lida Venegas Glucose [Mass/Vol] 143 mg/dL Normal [facility] Comment on above: Performed By: #### A 1C #### [facility] [address] [place] [address] Dr. Lida Venegas HbA1c (Bld) [Mass fraction] 6.6 % Critically high 4.5-6.2 [facility] Comment on above: Performed By: #### A 1C #### [facility] [address] [place] [address] Dr. Lida Venegas LIPID PROFILEon 01-20-2023 CHOL-HDL RATIO NORM SEE BELOW Normal [facility] Comment on above: Result Comment: 3.3 - 4.4 LOW RISK 4.4 - 7.1 AVERAGE RISK 7.1 - 11.0 MODERATE RISK >11.0 HIGH RISK Performed By: #### L IPID, BNP, FT3, T4, URIC, TSH, MG, CMP #### [facility] [address] [place] [address] Dr. Lida Venegas Cholesterol [Mass/Vol] 252 mg/dL Critically high <=200 [facility] Comment on above: Performed By: #### L IPID, BNP, FT3, T4, URIC, TSH, MG, CMP #### [facility] [address] [place] [address] Dr. Lida Venegas Cholesterol in HDL [Mass/Vol] 57 mg/dL Normal 40-60 [facility] Comment on above: Performed By: #### L IPID, BNP, FT3, T4, URIC, TSH, MG, CMP #### [facility] [address] [place] [address] Dr. Lida Venegas Cholesterol in LDL [Mass/Vol] 171.0 mg/dL Normal [facility] Comment on above: Performed By: #### L IPID, BNP, FT3, T4, URIC, TSH, MG, CMP #### [facility] [address] [place] [address] Dr. Lida Venegas Cholesterol.total/Ch olesterol in HDL [Mass ratio] 4.4 {ratio} Normal [facility] Comment on above: Performed By: #### L IPID, BNP, FT3, T4, URIC, TSH, MG, CMP #### [facility] [address] [place] [address] Dr. Lida Venegas HDL NORMAL > or = 60 mg/dl - LO W CARDIOVASCULAR RISK <40 mg/dl - HIGH CARDIOVASCULAR RISK Normal [facility] Comment on above: Performed By: #### L IPID, BNP, FT3, T4, URIC, TSH, MG, CMP #### [facility] [address] [place] [address] Dr. Lida Venegas LDL CALC NORMAL SEE BELOW Normal [facility] Comment on above: Result Comment: <100 mg/dl OPTIMAL 100 - 129 mg/dl NEAR OR ABOVE OPTIMAL 130 - 159 mg/dl BORDERLINE HIGH 160 - 189 mg/dl HIGH >190 mg/dl VERY HIGH Performed By: #### L IPID, BNP, FT3, T4, URIC, TSH, MG, CMP #### [facility] [address] [place] [address] Dr. Lida Venegas Triglyceride [Mass/Vol] 120 mg/dL Normal <=150 [facility] Comment on above: Performed By: #### L IPID, BNP, FT3, T4, URIC, TSH, MG, CMP #### [facility] [address] [place] [address] Dr. Lida Venegas VLDL CALC 24.0 mg/dL Normal [facility] Comment on above: Performed By: #### L IPID, BNP, FT3, T4, URIC, TSH, MG, CMP #### [facility] [address] [place] [address] Dr. Lida Venegas MAGNESIUMon 01-20-2023 Magnesium [Mass/Vol] 1.7 mg/dL Critically low 1.8-2.4 [facility] Comment on above: Performed By: #### L IPID, BNP, FT3, T4, URIC, TSH, MG, CMP #### [facility] [address] [place] [address] Dr. Lida Venegas PROF 14(COMP METB)on 023 Albumin [Mass/Vol] 3.9 g/dL Normal 3.4-5.0 [facility] Comment on above: Performed By: #### L IPID, BNP, FT3, T4, URIC, TSH, MG, CMP #### [facility] [address] [place] [address] Dr. Lida Venegas Albumin/Globulin [Mass ratio] 0.9 {ratio} Normal [facility] Comment on above: Performed By: #### L IPID, BNP, FT3, T4, URIC, TSH, MG, CMP #### [facility] [address] [place] [address] Dr. Lida Venegas ALP [Catalytic activity/Vol] 72 U/L Normal 46-116 [facility] Comment on above: Performed By: #### L IPID, BNP, FT3, T4, URIC, TSH, MG, CMP #### [facility] [address] [place] [address] Dr. Lida Venegas ALT [Catalytic activity/Vol] 36 U/L Normal 16-63 [facility] Comment on above: Performed By: #### L IPID, BNP, FT3, T4, URIC, TSH, MG, CMP #### [facility] [address] [place] [address] Dr. Lida Venegas Anion gap [Moles/Vol] 11.0 mmol/L Normal [facility] Comment on above: Performed By: #### L IPID, BNP, FT3, T4, URIC, TSH, MG, CMP #### [facility] [address] [place] [address] Dr. Lida Venegas AST [Catalytic activity/Vol] 23 U/L Normal 15-37 [facility] Comment on above: Performed By: #### L IPID, BNP, FT3, T4, URIC, TSH, MG, CMP #### [facility] [address] [place] [address] Dr. Lida Venegas Bilirubin [Mass/Vol] 0.5 mg/dL Normal 0.2-1.0 [facility] Comment on above: Performed By: #### L IPID, BNP, FT3, T4, URIC, TSH, MG, CMP #### [facility] [address] [place] [address] Dr. Lida Venegas Calcium [Mass/Vol] 9.7 mg/dL Normal 8.5-10.1 [facility] Comment on above: Performed By: #### L IPID, BNP, FT3, T4, URIC, TSH, MG, CMP #### [facility] [address] [place] [address] Dr. Lida Venegas Chloride [Moles/Vol] 103 mmol/L Normal 98-107 [facility] Comment on above: Performed By: #### L IPID, BNP, FT3, T4, URIC, TSH, MG, CMP #### [facility] [address] [place] [address] Dr. Lida Venegas CO2 [Moles/Vol] 32.7 mmol/L Critically high 21.0-32.0 [facility] Comment on above: Performed By: #### L IPID, BNP, FT3, T4, URIC, TSH, MG, CMP #### [facility] [address] [place] [address] Dr. Lida Venegas Creatinine [Mass/Vol] 1.33 mg/dL Critically high 0.70-1.30 [facility] Comment on above: Performed By: #### L IPID, BNP, FT3, T4, URIC, TSH, MG, CMP #### [facility] [address] [place] [address] Dr. Lida Venegas EGFR-AF GEORGIAN >60 Normal >=60 [facility] Comment on above: Performed By: #### L IPID, BNP, FT3, T4, URIC, TSH, MG, CMP #### [facility] [address] [place] [address] Dr. Lida Venegas EGFR-NON AF GEORGIAN 51 mL/min/1.73m2 Critically low >=60 [facility] Comment on above: Performed By: #### L IPID, BNP, FT3, T4, URIC, TSH, MG, CMP #### [facility] [address] [place] [address] Dr. Lida Venegas Globulin (S) [Mass/Vol] 4.0 g/dL Normal [facility] Comment on above: Performed By: #### L IPID, BNP, FT3, T4, URIC, TSH, MG, CMP #### [facility] [address] [place] [address] Dr. Lida Venegas Glucose [Mass/Vol] 149 mg/dL Critically high 74-106 [facility] Comment on above: Performed By: #### L IPID, BNP, FT3, T4, URIC, TSH, MG, CMP #### [facility] [address] [place] [address] Dr. Lida Venegas Potassium [Moles/Vol] 4.7 mmol/L Normal 3.5-5.1 [facility] Comment on above: Performed By: #### L IPID, BNP, FT3, T4, URIC, TSH, MG, CMP #### [facility] [address] [place] [address] Dr. Lida Venegas Protein [Mass/Vol] 7.9 g/dL Normal 6.4-8.2 [facility] Comment on above: Performed By: #### L IPID, BNP, FT3, T4, URIC, TSH, MG, CMP #### [facility] [address] [place] [address] Dr. Lida Venegas Sodium [Moles/Vol] 142 mmol/L Normal 136-145 [facility] Comment on above: Performed By: #### L IPID, BNP, FT3, T4, URIC, TSH, MG, CMP #### [facility] [address] [place] [address] Dr. Lida Venegas Urea nitrogen [Mass/Vol] 20.0 mg/dL Critically high 7.0-18.0 [facility] Comment on above: Performed By: #### L IPID, BNP, FT3, T4, URIC, TSH, MG, CMP #### [facility] [address] [place] [address] Dr. Liad Venegas Urea nitrogen/Creatinine [Mass ratio] 15.0 mg/mg Normal [facility] Comment on above: Performed By: #### L IPID, BNP, FT3, T4, URIC, TSH, MG, CMP #### [facility] [address] [place] [address] Dr. Lida Venegas T4on 01-20-2023 T4 [Mass/Vol] 6.70 ug/dL Normal 4.50-12.10 [facility] Comment on above: Performed By: #### L IPID, BNP, FT3, T4, URIC, TSH, MG, CMP #### [facility] [address] [place] [address] Dr. Lida Venegas TSHon 01-20-2023 TSH 1.371 uIU/mL Normal 0.358-3.740 [facility] Comment on above: Performed By: #### L IPID, BNP, FT3, T4, URIC, TSH, MG, CMP #### [facility] [address] [place] [address] Dr. Lida Venegas URIC ACID SERUMon 01-20-2023 Urate [Mass/Vol] 0.2 mg/dL Critically low 3.5-7.2 [facility] Comment on above: Performed By: #### L IPID, BNP, FT3, T4, URIC, TSH, MG, CMP #### [facility] [address] [address] [address] Lida Venegas Vital Signs Date Time Vital Sign Value Performing Clinician Faci lity 02-04-2024 13:07-0400 Body height 188 cm Pacc 1 Work Phone: [facility] 02-04-2024 13:07-0400 Body mass index (BMI) [Ratio] 28.02 kg/m2 Pacc 1 Work Phone: [facility] 02-04-2024 13:07-0400 Body temperature 97.5 [degF] Pacc 1 Work Phone: [facility] 02-04-2024 13:07-0400 Body weight 99 kg Pacc 1 Work Phone: [facility] 02-04-2024 13:07-0400 Diastolic blood pressure 81 mm[Hg] Pacc 1 Work Phone: [facility] 02-04-2024 13:07-0400 Heart rate 82 /min Pacc 1 Work Phone: [facility] 02-04-2024 13:07-0400 Respiratory rate 14 /min Pacc 1 Work Phone: [facility] 02-04-2024 13:07-0400 SaO2% (BldA) [Mass fraction] 97 % Pacc 1 Work Phone: [facility] 02-04-2024 13:07-0400 Systolic blood pressure 148 mm[Hg] Pacc 1 Work Phone: [facility] Encounters Encounter Date Encounter Type Care Provider Facility Start: 02-10-2024 End: 02-10-2024 ambulatory KRISTIN BRANDY V Facility:[facility] Start: 02-04-2024 End: 02-04-2024 Patient encounter procedure Eye Measurements Work Phone: Ophthalmology Comment on above: Combined forms of ag e-related cataract of both eyes Start: 02-04-2024 End: 02-04-2024 Admission to establishment [facility] 1 Work Phone: Pre Anesthesia Start: 02-04-2024 End: 02-04-2024 ambulatory KRISTIN HALEY V Facility:[facility] Start: 02-04-2024 End: 02-04-2024 Anesthesia consultation [address] [address] Work Phone: Pre Anesthesia Comment on above: Pre-op evaluation (P rimary Dx); Other specified hypothyroidism; Gastroesophageal reflux disease, unspecified whether esophagitis present; Paroxysmal atrial fibrillation (HCC) Start: 02-04-2024 End: 02-04-2024 Preprocedural examination done [facility] 1 Work Phone: [facility] Work Phone: Start: 01-20-2024 End: 01-20-2024 ambulatory ULYSSES GLOVER Facility:[facility] Start: 11-12-2023 End: 11-12-2023 ambulatory KRISTIN HALEY V Facility:[facility] Start: 11-12-2023 End: 11-12-2023 Patient encounter procedure [...] End: 08-17-2018 Patient encounter procedure DEFAULT PHYSICIAN Facility:[facility] Start: 07-26-2018 End: 07-27-2018 Patient encounter procedure DEFAULT PHYSICIAN Facility:[facility] Procedures Date Procedure Procedure Detail Performing Clinician Start: 01-20-[address] JOYCELYN GLOVER . Comment on above: Performed By: #### P SAN [facility] #### [facility] [address] [address] [address] Lida Venegas Plan of Treatment Date Care Activity Detail Author Start: 11-11-2024 End: 05-05-2025 IOL BIOMETRY W/ IOL CALC OU (BOTH EYES) IOL BIOMETRY W/ IOL CALC OU (BOTH EYES) OPHT Imaging Routine Combined forms of age-related cataract of both eyes Expected: 11/11/2024, Expires: 05/05/2025 [facility] Work Phone: Comment on above: Expected: 11/11/2024, Expires: Start: 05-08-2024 Influenza vaccination Influenza Vaccine (Season Ended) [facility] Start: 03-16-2024 End: 03-16-2024 Admission to same day surgery center 03/16/2024 9:50 AM EDT - 03/16/2024 10:20 AM EDT Surgery Ambulatory Surgery [address] [place] [address] Kristin Haley V, MD [address] [place], [place] [id number] PHACOEMULSIFICATION CATARACT IMPLANT INTRAOCULAR LENS W/O ENDOSCOPIC [...] and presbyopia, bilateral 03/16/2024 9:50 AM EDT [facility] Start: 03-16-2024 Subsequent hospital visit by physician 03/16/2024 9:50 AM EDT Hospital Encounter Ambulatory Surgery [address] [place] [address] Kristin Haley V, MD [address] [place], [place] [id number] Combined forms of age-related cataract of both [...] and presbyopia, bilateral 03/16/2024 9:50 AM EDT [facility] Start: 02-10-2024 End: 02-10-2024 Admission to same day surgery center 02/10/2024 11:55 AM EDT - 02/10/2024 12:25 PM EDT Surgery Ambulatory Surgery [address] [place] [address] Kristin Haley V, MD [address] [place], [place] [id number] PHACOEMULSIFICATION CATARACT IMPLANT INTRAOCULAR LENS W/O ENDOSCOPIC [...] and presbyopia, bilateral 02/10/2024 11:55 AM EDT [facility] Start: 02-10-2024 Subsequent hospital visit by physician 02/10/2024 11:55 AM EDT Hospital Encounter Ambulatory Surgery [address] [place] [address] Kristin Haley V, MD [address] [facility] [place], [place] [id number] Combined forms of age-related cataract of both [...] 09-07-2023 Advance Directive Discussion Advance Directive Discussion [facility] Start: 09-07-2023 Behavioral Health Screening Behavioral Health Screening [facility] Start: 09-07-2023 Depression Assessment Depression Assessment [facility] Start: 05-08-2023 Covid-19 Vaccine ( season) Covid-19 Vaccine ( season) [facility] Start: 05-08-2023 Influenza vaccination Influenza Vaccine (#1) [facility] Start: 2005 Pneumococcal Vaccine: 65+ (1 of 1 - PCV) Pneumococcal Vaccine: 65+ (1 of 1 - PCV) [facility] Start: 2000 RSV Vaccine (1 - 1-dose 60+ series) RSV Vaccine (1 - 1-dose 60+ series) [facility] Start: 1990 Shingrix Vaccine (1 of 2) Shingrix Vaccine (1 of 2) [facility] Start: 1985 Diabetes Screening Diabetes Screening [facility] Start: 1959 Urine microalbumin profile DTaP,Tdap,Td Vaccine (1 - Tdap) [facility] Start: 1940 Covid-19 Vaccine (#1) Covid-19 Vaccine (#1) [facility] End: 04-25-2025 CORNEAL TOPOGRAPHY PENTACAM OU (BOTH EYES) CORNEAL TOPOGRAPHY PENTACAM OU (BOTH EYES) OPHT Imaging Routine Combined forms of age-related cataract of both eyes 1 Occurrences starting 11/02/2023 until 04/25/2025 [facility] Work Phone: Comment on above: 1 Occurrences starting 11/02/2023 until 04/25/2025 CORNEAL TOPOGRAPHY P ENTACAM OU (BOTH EYES) CORNEAL TOPOGRAPHY PENTACAM OU (BOTH EYES) OPHT Imaging Routine Combined forms of age-related cataract of both eyes 11/12/2023 12:34 PM EST [facility] Work Phone: End: 04-25-2025 OCT MACULA CIRRUS OU (BOTH EYES) OCT MACULA CIRRUS OU (BOTH EYES) OPHT Imaging Routine Combined forms of age-related cataract of both eyes 1 Occurrences starting 11/02/2023 until 04/25/2025 [facility] Work Phone: Comment on above: 1 Occurrences starting 11/02/2023 until 04/25/2025 OCT MACULA CIRRUS OU (BOTH EYES) OCT MACULA CIRRUS OU (BOTH EYES) OPHT Imaging Routine Combined forms of age-related cataract of both eyes 11/12/2023 12:41 PM [facility] Work Phone: [facility] Immunizations Immunization Date Immunization Notes Care Provider [facility] 07-12-2013 influenza virus vacc ine, unspecified formulation Kristin Horner MD Work Phone: [facility] Payers Date Payer Category Payer Medicare A[employer]NA MEDICARE A ETNA MEDICARE PPO [id number] 2021-Present [phone] [address] [place] [address] PPO [id number] 1959 Medicare [id number] 1940 Unknown [id number] 1940 Unknown [id number] 1940 Unknown [id number] 1940 Unknown [id number] Unknown Social History Date Type Detail Facility Start: 11-12-2023 Tobacco smoking stat us NHIS Never smoked tobacco [facility] Start: 11-12-2023 Tobacco use and exposure Smoke less tobacco non-user [facility] Start: 11-12-2023 Alcohol intake Current drinke r of alcohol (finding) [facility] Start: 11-12-2023 End: 01-20-2024 History of Social function [facility] Start: 11-12-2023 End: 01-20-2024 Area Deprivation Index [facility] National Score (1-10 0), lower number is lower risk 63 [facility] Start: 11-12-2023 Alcohol Comment 1 beer a month [facility] Start: 1940 Sex Assigned At Not on file [facility] Start: 02-04-2024 Alcohol intake Ex-drinker (finding) [facility] Clinical Notes 11-12-2023 to 02-04-2024 Mena Francisco COA - 02/04/2024 1:45 PM EDTPatient Johan Jasso APRN.[employer] - 02/04/2024 1:04 PM EDJohan Lo APRN.EBONY - 02/04/2024 1:04 PM EDT Note Date & Type Note Facility 02-04-2024 Note HNO ID: [id number] Author: MENA FRANCISCO COA Service: ? Author Type: Sexual Health Physician Type: Progress Notes Filed: 02/04/2024 13:46 Note Text: Confirmed Aim: [place] OU PATIENT UNDERSTANDS HE WILL NEED GLASSES FOR NEAR AND INTERMEDIATE VISION. RANJIT Thakur February 04, 2024 1:45 PM [facility] 02-04-2024 History of Present illness Narrative Confirmed Aim: [place] OU PATIENT UNDERSTANDS HE WILL NEED GLASSES FOR NEAR AND INTERMEDIATE VISION. RANJIT Thakur February 04, 2024 1:45 PM documented in this encounter [facility] 02-04-2024 Instructions Johan Sanchez APRN.[employer] - 02/04/2024 1:12 PM EDT PATIENT PREOPERATIVE INSTRUCTIONS Kristin Haley V, MD has scheduled you for your procedure at this surgery center: [facility]: [phone] --[address] [facility]. [place] [address]. Please read below carefully for your personalized [...] Procedures: - YOU MUST HAVE A RESPONSIBLE GRAIN HANDLER TAKE YOU HOME. A FIELD CANE SCALER OR ACID POLYMERIZATION OPERATOR CANNOT BE MADE A RESPONSIBLE GRAIN HANDLER. - We recommend that a responsible person stays with you overnight to take care of you. - You cannot stay in a hotel alone after outpatient surgery. You will not be permitted to have your surgery, if you do not have someone to take care of you. If you already have an Advance Directive, please fax a copy to [phone] or email to for it to be [...] and scanned into your chart that day. Johan Sanchez APRN.EBONY documented in this encounter [facility] 02-04-2024 History and physical note HISTORY AND PHYSICAL EXAMINATION SERVICE DATE: 02/04/2024 SERVICE TIME: 1:05 PM PRIMARY CARE PHYSICIAN: Ulysses Glover MD REASON FOR VISIT: Marcelino Morales is a 83 year old male [...] have a large neck STOP-Bang Score: 2 [id number] Score: Age: >=75 Sex: male CHF history: No Hypertension history: No Stroke/TIA/thromboembolism history: No Vascular disease history: No Diabetes history: No [id number] Score: 2 ARISCAT Score: Age: >80 Preoperative [...] mg by mouth once daily. Taking Yes vvqnskna-[id number]-dhdy cb25 116-100 mg cap Take by mouth. [...] Stroke-residual deficit Stroke-No residual deficit Tumor involving PET SITTING Parkinson's Disease Multiple Sclerosis + Impaired memory Respiratory: No history of current cough or dyspnea, or pneumonia in the past 6 weeks. No history of respiratory/pulmonary symptoms or problems. Cardiovascular: Negative for Recent NM, Angina, Arrhythmia, Chest Pain, CHF GI: No history of GI symptoms or problems. No history of esophageal varices, recent ascites, or ETOH greater than 2 drinks per day. + GERD : No history of dysuria, frequency or incontinence,, stones or chronic kidney disease PLASTIC CNC MACHINE OPERATOR: N/A : N/A, No LMP for male [...] and voices comprehension and compliance. SIGNATURE: Johan Sanchez APRN.CNP PATIENT NAME: Marcelino Morales DATE: 02/04/2024 TIME: 1:10 PM [facility] 02-04-2024 History and physical note HISTORY AND PHYSICAL EXAMINATION SERVICE DATE: 02/04/2024 SERVICE TIME: 1:05 PM PRIMARY CARE PHYSICIAN: Ulysses Glover MD REASON FOR VISIT: Marcelino Morales is a 83 year old male [...] have a large neck STOP-Bang Score: 2 [id number] Score: Age: >=75 Sex: male CHF history: No Hypertension history: No Stroke/TIA/thromboembolism history: No Vascular disease history: No Diabetes history: No [id number] Score: 2 ARISCAT Score: Age: >80 Preoperative [...] mg by mouth once daily. Taking Yes otvlcnxm-ebvxdclyhoi-ftvr cb25 116-100 mg cap Take by mouth. [...] Stroke-residual deficit Stroke-No residual deficit Tumor involving PET SITTING Parkinson's Disease Multiple Sclerosis + Impaired memory Respiratory: No history of current cough or dyspnea, or pneumonia in the past 6 weeks. No history of respiratory/pulmonary symptoms or problems. Cardiovascular: Negative for Recent NM, Angina, Arrhythmia, Chest Pain, CHF GI: No history of GI symptoms or problems. No history of esophageal varices, recent ascites, or ETOH greater than 2 drinks per day. + GERD : No history of dysuria, frequency or incontinence,, stones or chronic kidney disease PLASTIC CNC MACHINE OPERATOR: N/A : N/A, No LMP for male [...] and voices comprehension and compliance. SIGNATURE: Johan Sanchez APRN.CNP PATIENT NAME: Marcelino Morales DATE: 02/04/2024 TIME: 1:10 PM documented in this encounter [facility] 11-12-2023 Miscellaneous Notes Addended by: HALEY TRIPATHI on: 11/12/2023 04:35 PM Modules accepted: Orders documented in this encounter [facility] 11-12-2023 Note HNO ID: [id number] Author: KRISTIN HALEY MD Service: ? Author Type: Physician Type: Progress Notes Filed: 11/12/2023 13:16 Note Text: The documentation for this note was completed by Ruthy Hewitt, [facility] acting as a scribe for Kristin HALEY [...] - Comanage with Dr Chow; [facility] POD #1 Cataract Presurgical Documentation Cataract: Both eyes (OU) Current Visual Acuity Right Eye Distance CC 20/40 Left Eye Distance CC 20/30 Best Corrected Vision Right Eye 20/30 Best Corrected Vision Left Eye 20/30-2 Glare Testing: Right Eye High less than 20/400 Left Eye High less than 20/400 Visual Function: Marcelino Morales states that the decline in vision from the cataract impedes his abilities as listed in the HPI, as well as other activities of daily living. Marcelino Morales has confirmed that he is no longer [...] with lens implantation were discussed with Marcelino Morales in detail. These included, but are not [...] patient was offered a surgery/procedure at a [facility] facility. The surgeon/proceduralist and patient have discussed [...] others. I have seen and examined Marcelino Morales. I have discussed the case and the management of this patient's care with the Resident/Fellow, if applicable. I also have reviewed and agree with the assessment and plan as stated above and agree with all of its relevant components. Kristin HALEY MD November 12, 2023 1:09 PM [facility] 11-12-2023 History of Present illness Narrative The documentation for this note was completed by Ruthy Hewitt, RANJIT acting as a scribe for Kristin HALEY [...] - Comanage with Dr Chow; [facility] POD #1 Cataract Presurgical Documentation Cataract: Both eyes (OU) Current Visual Acuity Right Eye Distance CC 20/40 Left Eye Distance CC 20/30 Best Corrected Vision Right Eye 20/30 Best Corrected Vision Left Eye 20/30-2 Glare Testing: Right Eye High less than 20/400 Left Eye High less than 20/400 Visual Function: Marcelino Morales states that the decline in vision from the cataract impedes his abilities as listed in the HPI, as well as other activities of daily living. Marcelino Morales has confirmed that he is no longer [...] with lens implantation were discussed with Marcelino Morales in detail. These included, but are not [...] patient was offered a surgery/procedure at a [facility] facility. The surgeon/proceduralist and patient have discussed [...] others. I have seen and examined Marcelino Morales. I have discussed the case and the [...] 367.20, 367.4, ICD10: H52.03, H52.203, H52.4 Denise Anguiano OD I have confirmed and edited as [...] with all of its relevant components. Denise Anguiano OD November 12, 2023 12:55 PM documented in this encounter [facility] 11-12-2023 Note HNO ID: [id number] Author: DENISE ANGUIANO OD Service: ? 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 Follows with PCP. On DOAC and BB. * Assessment & Plan Note - Johan Sanchez APRN.CNP - 02/04/2024 1:09 PM EDT Associated Problem(s): GERD (gastroesophageal reflux disease) Assessment: Well controlled with PPI * Assessment & Plan Note - Johan Sanchez APRN.CNP - 02/04/2024 1:09 PM EDT Associated Problem(s): Other specified hypothyroidism Assessment: Stable on Levothyroxine (Synthroid) documented in this encounter [facility] note* Diagnosis Combined forms of age-related cataract [...] and presbyopia, bilateral documented in this encounter [facility] Summary Purpose Family History No Family History Records FoundNo Family History Records FoundNo Family History Records Found Advance Directives No Advanced Directives Records FoundNo Advanced Directives Records FoundNo Advanced Directives Records Found Additional Source Comments (unrecognized sect ion and content) No Status Records FoundNo Status Records FoundNo Status Records Found INFORMATION SOURCE (unrecogn ized section and content) DATE CREATED AUTHOR 08/18/2018 [facility] DATE CREATED AUTHOR AUTHOR'S ORGANIZ ATION 01/21/2023 [facility] DATE CREATED AUTHOR AUTHOR'S ORGANIZ ATION 02/11/2024 [facility] Source Comments (unrecognize d section and content) In the event this informatio n is protected by the Federal Confidentiality of Alcohol and Drug Abuse Patient Records regulations: The Federal rules restrict any use of the information to criminally investigate or prosecute any alcohol or drug abuse patient.[facility] the event this information is protected by the Federal Confidentiality of Alcohol and Drug Abuse Patient Records regulations: The Federal rules restrict any use of the information to criminally investigate or prosecute any alcohol or drug abuse patient.[facility] the event this information is protected by the Federal Confidentiality of Alcohol and Drug Abuse Patient Records regulations: The Federal rules restrict any use of the information to criminally investigate or prosecute any alcohol or drug abuse patient.[facility] Reason for Visit (unrecogniz ed section and [...] Care Teams (unrecognized sec tion and content) Hand Surgeon Relationship Specialty Start Date End Date Ulysses Glover MD [address] [place], [place] [id number] PCP - General Family Medicine 01/20/24 Hand Surgeon Relationship Specialty Start Date End Date Ulysses Glover MD [address] [place] [address] PCP - General Family Medicine 01/20/24 FOR [...] BE BASED ON THE PRIMARY CLINICAL RECORDS. [employer] provides no warranty or guarantee of the accuracy or completeness of information in this document.
[2025-03-01 07:45] LABS: Basophils Percent Auto 0.6 % (0.2-2.0); Eosinophils Absolute Auto 0.2 10^3/uL (0.0-0.7); Eosinophils Percent Auto 4.1 % (0.9-7.0); Hematocrit 43.1 % (42.0-54.0); Hemoglobin 14.8 g/dL (14.0-18.0); Immature Granulocytes Abs Auto 0.01 10^3/uL (0.00-0.03); Immature Granulocytes Pct Auto 0.2 % (0.0-0.5); Lymphocytes Percent Auto 38.2 % (20.5-60.0); Mean Corpuscular HGB Conc 34.3 g/dL (29.9-35.2); Mean Corpuscular Hemoglobin 33.9 pg (25.9-34.0); Mean Corpuscular Volume 98.6 fL (80.0-94.0); Mean Platelet Volume 13.3 fL (9.5-13.5); Monocytes Absolute Auto 0.5 10^3/uL (0.3-0.8); Monocytes Percent Auto 9.5 % (1.7-12.0); Neutrophils Absolute Auto 2.5 10^3/uL (1.4-6.5); Neutrophils Percent Auto 47.4 % (43.0-75.0); Platelet Count 111 10^3/uL (150-450); Red Blood Count 4.37 10^6/uL (4.70-6.10); Red Cell Distribution Width 13.2 % (11.0-15.0); White Blood Count 5.2 10^3/uL (4.0-11.0)
== END 2025-03-01 07:33 | disposition home or self-care (01) ==
LOC: LAB 07:32
PROVIDERS: PCP Family Medicine; Visit Provider Family Medicine
DX: D69.6 Thrombocytopenia, unspecified (principal); I10 Essential (primary) hypertension
CPT/HCPCS: 36415; 85025

== ENCOUNTER 2025-04-07 06:42 | Outpatient (REF) | payer MEDICARE, SELFPAY ==
--- OUTSIDE RECORDS SUMMARY | 2025-04-07 06:46 | XMS_ITS | CCD ---
Author Organization [facility] Care Team Providers Care Criminal Psychologist Name Role Phone PHYSICIAN, DEFAULT Unavailable Unavailable [...] Provider UnavailUlysses Martines MD Primary Care Provider [phone] ULYSSES GLOVER Primary Care Unavailable BRANDY V, [...] on above: Take 2 tablets by mo [facility] every afternoon. lutein 40 mg oral capsule (3 sources) lutein 40 mg cap Take by mouth. 0 Active Comment on above: Take by mouth. 24 hr memantine hydrochloride 14 mg extended release oral capsule (1 source) Z-mcbwht-D-aspartate Receptor Antagonist take 2 capsules by mouth [...] EVALon 024 ANES POSTPROC EVAL HNO ID: [id number] Author: LORETTA BARRY MD Service: Anesthesiology Author Type: Anesthesiologist Type: Anesthesia Postprocedure Evaluation Filed: 02/10/2024 13:00 Note Text: POST ANESTHESIA EVALUATION NOTE : 1940 Procedure Summary Date: 02/10/24 Room / Location: [address] Anesthesia Start: 1237 Anesthesia Stop: 1253 [...] February 10, 2024 TIME: 1:00 PM CSN: [id number] Normal [facility] ANES PRE-OPon 02-10-2024 ANES PRE-OP HNO ID: [id number] Author: LORETTA BARRY MD Service: Anesthesiology Author Type: Anesthesiologist Type: Anesthesia Preprocedure Evaluation Filed: 02/10/2024 12:31 Note Text: ANESTHESIOLOGY DAY OF SURGERY NOTE : 1940 Procedure Information Date/Time: 02/10/24 1155 Procedures: PHACOEMULSIFICATION CATARACT IMPLANT INTRAOCULAR LENS W/O ENDOSCOPIC CYCLOPHOTOCOAGULATION (Left: Eye) OPHTHALMIC BIOMETRY BY PARTIAL COHERENCE INTERFEROMETRY W/INTRAOCULAR LENS POWER CALCULATION (Left: Eye) Location: [address] Surgeons: Kristin Haley V, MD Estimated [...] and consent discussed: yes. Patient / Responsible Libertarian agrees to proceed: yes Patient / Surrogate [...] February 10, 2024 TIME: 12:30 PM CSN: [id number] Normal [facility] OPERATIVE NOon 02-10-2024 OPERATIVE NO HNO ID: [id number] Author: KRITSIN HALEY MD Service: Ophthalmology Author Type: Physician Type: Operative Report Filed: 02/10/2024 12:52 Note Text: OPERATIVE REPORT DATE OF SERVICE: February 10, 2024 PRIMARY SURGEON: Kristin Haley M.D. SOLE ASSESSOR: None [Any nurse listed as assisting or [...] corneal incision was created temporally with a Fenton blade then a 2.4 mm keratome. The [...] Implant Name Type Inv. Item Serial No. Remote Operations Producer Lot No. LRB No. Used Action Model No. [id number] [employer] - [id number] Intraocular Lens [id number] [employer] [id number] [employer] Left 1 Implanted [id number] [...] 12:51 PM - Comanage with Dr Chow; [facility] POD #1 Kristin HALEY MD [facility] HISTORY PHYSICALon HISTORY PHYSICAL HNO ID: [id number] Author: JOHAN SANCHEZ APRN.[employer] Service: ? Author Type: Nurse Practitioner Type: [...] have a large neck STOP-Bang Score: 2 [id number] Score: Age: >=75 Sex: male CHF history: No Hypertension history: No Stroke/TIA/thromboembol ism history: No Vascular disease history: No Diabetes history: No [id number] Score: 2 ARISCAT Score: Age: >80 Preoperative [...] reflux disease) Hypothyroidism PAF (paroxysmal atrial fibrillation) ([facility]) PAST SURGICAL HISTORY Procedure Laterality Date COLONOSCOPY [...] 5 mg (more content not included)... Normal [facility] BNPon 01-20-2023 Natriuretic peptide B (Bld) [Mass/Vol] 1564.0 pg/mL Normal <=1,800.0 [facility] Comment on above: Performed By: #### L IPID, BNP, FT3, T4, URIC, TSH, MG, CMP #### [facility] [address] [place] [address] Dr. Lida Venegas CBC AUTO DIFFon 01-20-2023 BASO # 0.0 103/ul Normal 0.0-0.1 [facility] Comment on above: Performed By: #### A 1C #### [facility] [address] [place] [address] Dr. Lida Venegas Basophils/100 WBC (Bld) 0.4 % Normal 0.2-2.0 [facility] Comment on above: Performed By: #### A 1C #### [facility] [address] [place] [address] Dr. Lida Venegas EO # 0.0 103/ul Normal 0.0-0.7 [facility] Comment on above: Performed By: #### A 1C #### [facility] [address] [place] [address] Dr. Lida Venegas Eosinophils/100 WBC (Bld) 0.3 % Critically low 0.9-7.0 [facility] Comment on above: Performed By: #### A 1C #### [facility] [address] [place] [address] Dr. Lida Venegas Erythrocyte distribution width (RBC) [Ratio] 12.8 % Normal 11.0-15.0 [facility] Comment on above: Performed By: #### A 1C #### [facility] [address] [place] [address] Dr. Lida Venegas Hematocrit (Bld) [Volume fraction] 47.6 % Normal 42.0-54.0 [facility] Comment on above: Performed By: #### A 1C #### [facility] [address] [place] [address] Dr. Lida Venegas Hemoglobin (Bld) [Mass/Vol] 15.8 g/dL Normal 14.0-18.0 [facility] Comment on above: Performed By: #### A 1C #### [facility] [address] [place] [address] Dr. Lida Venegas IG # 0.03 10e3/ul Normal 0.00-0.03 [facility] Comment on above: Performed By: #### A 1C #### [facility] [address] [place] [address] Dr. Lida Venegas IG % 0.4 % Normal 0.0-0.5 [facility] Comment on above: Performed By: #### A 1C #### [facility] [address] [place] [address] Dr. Lida Venegas LYMPH # 1.7 103/ul Normal 1.2-3.8 [facility] Comment on above: Performed By: #### A 1C #### [facility] [address] [place] [address] Dr. Lida Venegas Lymphocytes/100 WBC (Bld) 23.9 % Normal 20.5-60.0 [facility] Comment on above: Performed By: #### A 1C #### [facility] [address] [place] [address] Dr. Lida Venegas MANUAL DIFF REQ NO Normal [facility] Comment on above: Performed By: #### A 1C #### [facility] [address] [place] [address] Dr. Lida Venegas MCH (RBC) [Entitic mass] 32.4 pg Normal 25.9-34.0 [facility] Comment on above: Performed By: #### A 1C #### [facility] [address] [address] [address] Lida Venegas MCHC (RBC) [Mass/Vol] 33.2 g/dL Normal 29.9-35.2 [facility] Comment on above: Performed By: #### A 1C #### [facility] [address] [address] [address] Lida Venegas MCV (RBC) [Entitic vol] 97.5 fL Critically high 80.0-94.0 [facility] Comment on above: Performed By: #### A 1C #### [facility] [address] [place] [address] Dr. Lida Venegas MONO # 0.4 103/ul Normal 0.3-0.8 [facility] Comment on above: Performed By: #### A 1C #### [facility] [address] [place] [address] Dr. Lida Venegas Monocytes/100 WBC (Bld) 5.9 % Normal 1.7-12.0 [facility] Comment on above: Performed By: #### A 1C #### [facility] [address] [place] [address] Dr. Lida Venegas NEUT # 4.8 103/ul Normal 1.4-6.5 [facility] Comment on above: Performed By: #### A 1C #### [facility] [address] [place] [address] Dr. Lida Venegas Neutrophils/100 WBC (Bld) 69.1 % Normal 43.0-75.0 [facility] Comment on above: Performed By: #### A 1C #### [facility] [address] [place] [address] Dr. Lida Venegas Platelet mean volume (Bld) [Entitic vol] 12.6 fL Normal 9.5-13.5 [facility] Comment on above: Performed By: #### A 1C #### [facility] [address] [place] [address] Dr. Lida Venegas PLT 138 103/ul Critically low 150-450 [facility] Comment on above: Performed By: #### A 1C #### [facility] [address] [address] [address] Lida Venegas RBC 4.88 106/ul Normal 4.70-6.10 [facility] Comment on above: Performed By: #### A 1C #### [facility] [address] [address] [address] Lida Venegas WBC 7.0 103/ul Normal 4.0-11.0 [facility] Comment on above: Performed By: #### A 1C #### [facility] [address] [address] [address] Lida Venegas FREE T3on 01-20-2023 FREE T3 1.75 pg/mlL Critically low 2.18-3.98 [facility] Comment on above: Performed By: #### L IPID, BNP, FT3, T4, URIC, TSH, MG, CMP #### [facility] [address] [address] [address] Lida Venegas GLYCOHEMOGLOBIN A1Con 2022 ADA RECOMMENDATION SEE BELOW Normal [facility] Comment on above: Result Comment: ADA RECOMMENDED LIMIT 4.0 - 6.0 ADA THERAPEUTIC TARGET < 7.0 ACTION SUGGESTED > 7.0 Performed By: #### A 1C #### [facility] [address] [place] [address] Dr. Lida Venegas Glucose [Mass/Vol] 143 mg/dL Normal [facility] Comment on above: Performed By: #### A 1C #### [facility] [address] [place] [address] Dr. Lida Venegas HbA1c (Bld) [Mass fraction] 6.6 % Critically high 4.5-6.2 [facility] Comment on above: Performed By: #### A 1C #### [facility] [address] [place] [address] Dr. Lida Venegas LIPID PROFILEon 01-20-2023 CHOL-HDL RATIO NORM SEE BELOW Normal [facility] Comment on above: Result Comment: 3.3 - 4.4 LOW RISK 4.4 - 7.1 AVERAGE RISK 7.1 - 11.0 MODERATE RISK >11.0 HIGH RISK Performed By: #### L IPID, BNP, FT3, T4, URIC, TSH, MG, CMP #### [facility] [address] [place] [address] Dr. Lida Venegas Cholesterol [Mass/Vol] 252 mg/dL Critically high <=200 [facility] Comment on above: Performed By: #### L IPID, BNP, FT3, T4, URIC, TSH, MG, CMP #### [facility] [address] [place] [address] Dr. Lida Venegas Cholesterol in HDL [Mass/Vol] 57 mg/dL Normal 40-60 [facility] Comment on above: Performed By: #### L IPID, BNP, FT3, T4, URIC, TSH, MG, CMP #### [facility] [address] [place] [address] Dr. Lida Venegas Cholesterol in LDL [Mass/Vol] 171.0 mg/dL Normal [facility] Comment on above: Performed By: #### L IPID, BNP, FT3, T4, URIC, TSH, MG, CMP #### [facility] [address] [place] [address] Dr. Lida Venegas Cholesterol.total/Ch olesterol in HDL [Mass ratio] 4.4 {ratio} Normal [facility] Comment on above: Performed By: #### L IPID, BNP, FT3, T4, URIC, TSH, MG, CMP #### [facility] [address] [place] [address] Dr. Lida Venegas HDL NORMAL > or = 60 mg/dl - LO W CARDIOVASCULAR RISK <40 mg/dl - HIGH CARDIOVASCULAR RISK Normal [facility] Comment on above: Performed By: #### L IPID, BNP, FT3, T4, URIC, TSH, MG, CMP #### [facility] [address] [place] [address] Dr. Lida Venegas LDL CALC NORMAL SEE BELOW Normal [facility] Comment on above: Result Comment: <100 mg/dl OPTIMAL 100 - 129 mg/dl NEAR OR ABOVE OPTIMAL 130 - 159 mg/dl BORDERLINE HIGH 160 - 189 mg/dl HIGH >190 mg/dl VERY HIGH Performed By: #### L IPID, BNP, FT3, T4, URIC, TSH, MG, CMP #### [facility] [address] [place] [address] Dr. Lida Venegas Triglyceride [Mass/Vol] 120 mg/dL Normal <=150 [facility] Comment on above: Performed By: #### L IPID, BNP, FT3, T4, URIC, TSH, MG, CMP #### [facility] [address] [place] [address] Dr. Lida Venegas VLDL CALC 24.0 mg/dL Normal [facility] Comment on above: Performed By: #### L IPID, BNP, FT3, T4, URIC, TSH, MG, CMP #### [facility] [address] [place] [address] Dr. Lida Venegas MAGNESIUMon 01-20-2023 Magnesium [Mass/Vol] 1.7 mg/dL Critically low 1.8-2.4 [facility] Comment on above: Performed By: #### L IPID, BNP, FT3, T4, URIC, TSH, MG, CMP #### [facility] [address] [place] [address] Dr. Lida Venegas PROF 14(COMP METB)on 023 Albumin [Mass/Vol] 3.9 g/dL Normal 3.4-5.0 [facility] Comment on above: Performed By: #### L IPID, BNP, FT3, T4, URIC, TSH, MG, CMP #### [facility] [address] [place] [address] Dr. Lida Venegas Albumin/Globulin [Mass ratio] 0.9 {ratio} Normal [facility] Comment on above: Performed By: #### L IPID, BNP, FT3, T4, URIC, TSH, MG, CMP #### [facility] [address] [place] [address] Dr. Lida Venegas ALP [Catalytic activity/Vol] 72 U/L Normal 46-116 [facility] Comment on above: Performed By: #### L IPID, BNP, FT3, T4, URIC, TSH, MG, CMP #### [facility] [address] [place] [address] Dr. Lida Venegas ALT [Catalytic activity/Vol] 36 U/L Normal 16-63 [facility] Comment on above: Performed By: #### L IPID, BNP, FT3, T4, URIC, TSH, MG, CMP #### [facility] [address] [place] [address] Dr. Lida Venegas Anion gap [Moles/Vol] 11.0 mmol/L Normal [facility] Comment on above: Performed By: #### L IPID, BNP, FT3, T4, URIC, TSH, MG, CMP #### [facility] [address] [place] [address] Dr. Lida Venegas AST [Catalytic activity/Vol] 23 U/L Normal 15-37 [facility] Comment on above: Performed By: #### L IPID, BNP, FT3, T4, URIC, TSH, MG, CMP #### [facility] [address] [place] [address] Dr. Lida Venegas Bilirubin [Mass/Vol] 0.5 mg/dL Normal 0.2-1.0 [facility] Comment on above: Performed By: #### L IPID, BNP, FT3, T4, URIC, TSH, MG, CMP #### [facility] [address] [place] [address] Dr. Lida Venegas Calcium [Mass/Vol] 9.7 mg/dL Normal 8.5-10.1 [facility] Comment on above: Performed By: #### L IPID, BNP, FT3, T4, URIC, TSH, MG, CMP #### [facility] [address] [place] [address] Dr. Lida Venegas Chloride [Moles/Vol] 103 mmol/L Normal 98-107 [facility] Comment on above: Performed By: #### L IPID, BNP, FT3, T4, URIC, TSH, MG, CMP #### [facility] [address] [place] [address] Dr. Lida Venegas CO2 [Moles/Vol] 32.7 mmol/L Critically high 21.0-32.0 [facility] Comment on above: Performed By: #### L IPID, BNP, FT3, T4, URIC, TSH, MG, CMP #### [facility] [address] [place] [address] Dr. Lida Venegas Creatinine [Mass/Vol] 1.33 mg/dL Critically high 0.70-1.30 [facility] Comment on above: Performed By: #### L IPID, BNP, FT3, T4, URIC, TSH, MG, CMP #### [facility] [address] [place] [address] Dr. Lida Venegas EGFR-AF LIBERIAN >60 Normal >=60 [facility] Comment on above: Performed By: #### L IPID, BNP, FT3, T4, URIC, TSH, MG, CMP #### [facility] [address] [place] [address] Dr. Lida Venegas EGFR-NON AF LIBERIAN 51 mL/min/1.73m2 Critically low >=60 [facility] Comment on above: Performed By: #### L IPID, BNP, FT3, T4, URIC, TSH, MG, CMP #### [facility] [address] [place] [address] Dr. Lida Venegas Globulin (S) [Mass/Vol] 4.0 g/dL Normal [facility] Comment on above: Performed By: #### L IPID, BNP, FT3, T4, URIC, TSH, MG, CMP #### [facility] [address] [place] [address] Dr. Lida Venegas Glucose [Mass/Vol] 149 mg/dL Critically high 74-106 [facility] Comment on above: Performed By: #### L IPID, BNP, FT3, T4, URIC, TSH, MG, CMP #### [facility] [address] [place] [address] Dr. Lida Venegas Potassium [Moles/Vol] 4.7 mmol/L Normal 3.5-5.1 [facility] Comment on above: Performed By: #### L IPID, BNP, FT3, T4, URIC, TSH, MG, CMP #### [facility] [address] [place] [address] Dr. Lida Venegas Protein [Mass/Vol] 7.9 g/dL Normal 6.4-8.2 [facility] Comment on above: Performed By: #### L IPID, BNP, FT3, T4, URIC, TSH, MG, CMP #### [facility] [address] [place] [address] Dr. Lida Venegas Sodium [Moles/Vol] 142 mmol/L Normal 136-145 [facility] Comment on above: Performed By: #### L IPID, BNP, FT3, T4, URIC, TSH, MG, CMP #### [facility] [address] [place] [address] Dr. Lida Venegas Urea nitrogen [Mass/Vol] 20.0 mg/dL Critically high 7.0-18.0 [facility] Comment on above: Performed By: #### L IPID, BNP, FT3, T4, URIC, TSH, MG, CMP #### [facility] [address] [place] [address] Dr. Lida Venegas Urea nitrogen/Creatinine [Mass ratio] 15.0 mg/mg Normal [facility] Comment on above: Performed By: #### L IPID, BNP, FT3, T4, URIC, TSH, MG, CMP #### [facility] [address] [place] [address] Dr. Lida Venegas T4on 01-20-2023 T4 [Mass/Vol] 6.70 ug/dL Normal 4.50-12.10 [facility] Comment on above: Performed By: #### L IPID, BNP, FT3, T4, URIC, TSH, MG, CMP #### [facility] [address] [place] [address] Dr. Lida Venegas TSHon 01-20-2023 TSH 1.371 uIU/mL Normal 0.358-3.740 [facility] Comment on above: Performed By: #### L IPID, BNP, FT3, T4, URIC, TSH, MG, CMP #### [facility] [address] [place] [address] Dr. Lida Venegas URIC ACID SERUMon 01-20-2023 Urate [Mass/Vol] 0.2 mg/dL Critically low 3.5-7.2 [facility] Comment on above: Performed By: #### L IPID, BNP, FT3, T4, URIC, TSH, MG, CMP #### [facility] [address] [address] [address] Lida Venegas Vital Signs Date Time Vital Sign Value Performing Clinician Faci lity 02-04-2024 13:07-0400 Body height 188 cm Pacc 1 Work Phone: [facility] 02-04-2024 13:07-0400 Body mass index (BMI) [Ratio] 28.02 kg/m2 Pacc 1 Work Phone: [facility] 02-04-2024 13:07-0400 Body temperature 97.5 [degF] Pacc 1 Work Phone: [facility] 02-04-2024 13:07-0400 Body weight 99 kg Pacc 1 Work Phone: [facility] 02-04-2024 13:07-0400 Diastolic blood pressure 81 mm[Hg] Pacc 1 Work Phone: [facility] 02-04-2024 13:07-0400 Heart rate 82 /min Pacc 1 Work Phone: [facility] 02-04-2024 13:07-0400 Respiratory rate 14 /min Pacc 1 Work Phone: [facility] 02-04-2024 13:07-0400 SaO2% (BldA) [Mass fraction] 97 % Pacc 1 Work Phone: [facility] 02-04-2024 13:07-0400 Systolic blood pressure 148 mm[Hg] Pacc 1 Work Phone: [facility] Encounters Encounter Date Encounter Type Care Provider Facility Start: 02-10-2024 End: 02-10-2024 ambulatory KRISTIN BRANDY V Facility:[facility] Start: 02-04-2024 End: 02-04-2024 Patient encounter procedure Eye Measurements Work Phone: Ophthalmology Comment on above: Combined forms of ag e-related cataract of both eyes Start: 02-04-2024 End: 02-04-2024 Admission to establishment [facility] 1 Work Phone: Pre Anesthesia Start: 02-04-2024 End: 02-04-2024 ambulatory KRISTIN HALEY V Facility:[facility] Start: 02-04-2024 End: 02-04-2024 Anesthesia consultation [address] [address] Work Phone: Pre Anesthesia Comment on above: Pre-op evaluation (P rimary Dx); Other specified hypothyroidism; Gastroesophageal reflux disease, unspecified whether esophagitis present; Paroxysmal atrial fibrillation (HCC) Start: 02-04-2024 End: 02-04-2024 Preprocedural examination done [facility] 1 Work Phone: [facility] Work Phone: Start: 01-20-2024 End: 01-20-2024 ambulatory ULYSSES GLOVER Facility:[facility] Start: 11-12-2023 End: 11-12-2023 ambulatory KRISTIN HALEY V Facility:[facility] Start: 11-12-2023 End: 11-12-2023 Patient encounter [...] End: 08-17-2018 Patient encounter procedure DEFAULT PHYSICIAN Facility:[facility] Start: 07-26-2018 End: 07-27-2018 Patient encounter procedure DEFAULT PHYSICIAN Facility:[facility] Procedures Date Procedure Procedure Detail Performing Clinician Start: 01-20-[address] JOYCELYN GLOVER . Comment on above: Performed By: #### P [facility] #### [facility] [address] [address] [address] Lida Venegas Plan of Treatment Date Care Activity Detail Author Start: 11-11-2024 End: 05-05-2025 IOL BIOMETRY W/ IOL CALC OU (BOTH EYES) IOL BIOMETRY W/ IOL CALC OU (BOTH EYES) OPHT Imaging Routine Combined forms of age-related cataract of both eyes Expected: 11/11/2024, Expires: 05/05/2025 [facility] Work Phone: Comment on above: Expected: 11/11/2024, Expires: Start: 05-08-2024 Influenza vaccination Influenza Vaccine (Season Ended) [facility] Start: 03-16-2024 End: 03-16-2024 Admission to same day surgery center 03/16/2024 9:50 AM EDT - 03/16/2024 10:20 AM EDT Surgery Ambulatory Surgery [address] [place] [address] Kristin Haley V, MD [address] [place], [place] [id number] PHACOEMULSIFICATION CATARACT IMPLANT INTRAOCULAR LENS W/O ENDOSCOPIC [...] and presbyopia, bilateral 03/16/2024 9:50 AM EDT [facility] Start: 03-16-2024 Subsequent hospital visit by physician 03/16/2024 9:50 AM EDT Hospital Encounter Ambulatory Surgery [address] [place] [address] Kristin Haley V, MD [address] [place], [place] [id number] Combined forms of age-related cataract of both [...] and presbyopia, bilateral 03/16/2024 9:50 AM EDT [facility] Start: 02-10-2024 End: 02-10-2024 Admission to same day surgery center 02/10/2024 11:55 AM EDT - 02/10/2024 12:25 PM EDT Surgery Ambulatory Surgery [address] [place] [address] Kristin Haley V, MD [address], [place] [id number] PHACOEMULSIFICATION CATARACT IMPLANT INTRAOCULAR LENS W/O ENDOSCOPIC [...] and presbyopia, bilateral 02/10/2024 11:55 AM EDT [facility] Start: 02-10-2024 Subsequent hospital visit by physician 02/10/2024 11:55 AM EDT Hospital Encounter Ambulatory Surgery [address] [place] [address] Kristin Haley V, MD [address] [facility] [place], [place] [id number] Combined forms of age-related cataract of both [...] 09-07-2023 Advance Directive Discussion Advance Directive Discussion [facility] Start: 09-07-2023 Behavioral Health Screening Behavioral Health Screening [facility] Start: 09-07-2023 Depression Assessment Depression Assessment [facility] Start: 05-08-2023 Covid-19 Vaccine ( season) Covid-19 Vaccine ( season) [facility] Start: 05-08-2023 Influenza vaccination Influenza Vaccine (#1) [facility] Start: 2005 Pneumococcal Vaccine: 65+ (1 of 1 - PCV) Pneumococcal Vaccine: 65+ (1 of 1 - PCV) [facility] Start: 2000 RSV Vaccine (1 - 1-dose 60+ series) RSV Vaccine (1 - 1-dose 60+ series) [facility] Start: 1990 Shingrix Vaccine (1 of 2) Shingrix Vaccine (1 of 2) [facility] Start: 1985 Diabetes Screening Diabetes Screening [facility] Start: 1959 Urine microalbumin profile DTaP,Tdap,Td Vaccine (1 - Tdap) [facility] Start: 1940 Covid-19 Vaccine (#1) Covid-19 Vaccine (#1) [facility] End: 04-25-2025 CORNEAL TOPOGRAPHY PENTACAM OU (BOTH EYES) CORNEAL TOPOGRAPHY PENTACAM OU (BOTH EYES) OPHT Imaging Routine Combined forms of age-related cataract of both eyes 1 Occurrences starting 11/02/2023 until 04/25/2025 [facility] Work Phone: Comment on above: 1 Occurrences starting 11/02/2023 until 04/25/2025 CORNEAL TOPOGRAPHY P ENTACAM OU (BOTH EYES) CORNEAL TOPOGRAPHY PENTACAM OU (BOTH EYES) OPHT Imaging Routine Combined forms of age-related cataract of both eyes 11/12/2023 12:[address] [facility] Work Phone: End: 04-25-2025 OCT MACULA CIRRUS OU (BOTH EYES) OCT MACULA CIRRUS OU (BOTH EYES) OPHT Imaging Routine Combined forms of age-related cataract of both eyes 1 Occurrences starting 11/02/2023 until 04/25/2025 [facility] Work Phone: Comment on above: 1 Occurrences starting 11/02/2023 until 04/25/2025 OCT MACULA CIRRUS OU (BOTH EYES) OCT MACULA CIRRUS OU (BOTH EYES) OPHT Imaging Routine Combined forms of age-related cataract of both eyes 11/12/2023 12:41 PM [facility] Work Phone: [facility] Immunizations Immunization Date Immunization Notes Care Provider [facility] 07-12-2013 influenza virus vacc ine, unspecified formulation Kristin Horner MD Work Phone: [facility] Payers Date Payer Category Payer Medicare AETNA MEDICARE A ETNA MEDICARE PPO [id number] 2021-Present [phone] [address] [place] [address] PPO [id number] 1959 Medicare [id number] 1940 Unknown [id number] 1940 Unknown [id number] 1940 Unknown [id number] 1940 Unknown [id number] Unknown Social History Date Type Detail Facility Start: 11-12-2023 Tobacco smoking stat us NHIS Never smoked tobacco [facility] Start: 11-12-2023 Tobacco use and exposure Smoke less tobacco non-user [facility] Start: 11-12-2023 Alcohol intake Current drinke r of alcohol (finding) [facility] Start: 11-12-2023 End: 01-20-2024 History of Social function [facility] Start: 11-12-2023 End: 01-20-2024 Area Deprivation Index [facility] National Score (1-10 0), lower number is lower risk 63 [facility] Start: 11-12-2023 Alcohol Comment 1 beer a month [facility] Start: 1940 Sex Assigned At Not on file [facility] Start: 02-04-2024 Alcohol intake Ex-drinker (finding) [facility] Clinical Notes 11-12-2023 to 02-04-2024 Mena Francisco COA - 02/04/2024 1:45 PM EDTPatient Johan Jasso APRN.BESSEMER BOTTOM MAKER - 02/04/2024 1:04 PM EDJohan Lo APRN.EBONY - 02/04/2024 1:04 PM EDT Note Date & Type Note Facility 02-04-2024 Note HNO ID: [id number] Author: MENA FRANCISCO COA Service: ? Author Type: Sales Special Agent Type: Progress Notes Filed: 02/04/2024 13:46 Note Text: Confirmed Aim: [place] OU PATIENT UNDERSTANDS HE WILL NEED GLASSES FOR NEAR AND INTERMEDIATE VISION. RANJIT Thakur February 04, 2024 1:45 PM [facility] 02-04-2024 History of Present illness Narrative Confirmed Aim: [place] OU PATIENT UNDERSTANDS HE WILL NEED GLASSES FOR NEAR AND INTERMEDIATE VISION. RANJIT Thakur February 04, 2024 1:45 PM documented in this encounter [facility] 02-04-2024 Instructions Johan Sanchez APRN.BESSEMER BOTTOM MAKER - 02/04/2024 1:12 PM EDT PATIENT PREOPERATIVE INSTRUCTIONS Kristin Haley V, MD has scheduled you for your procedure at this surgery center: [facility]: [phone] --[address] [facility]. [place] [address]. Please read below carefully for your personalized [...] Procedures: - YOU MUST HAVE A RESPONSIBLE ELECTRICAL ASSEMBLIES SUPERVISOR TAKE YOU HOME. A BIODIESEL PROCESSING TECHNICIAN OR INDUSTRIAL HEALTH AND SAFETY PROFESSOR CANNOT BE MADE A RESPONSIBLE ELECTRICAL ASSEMBLIES SUPERVISOR. - We recommend that a responsible person stays with you overnight to take care of you. - You cannot stay in a hotel alone after outpatient surgery. You will not be permitted to have your surgery, if you do not have someone to take care of you. If you already have an Advance Directive, please fax a copy to [phone] or email to for it to be [...] Johan Sanchez APRN.EBONY documented in this encounter [facility] 02-04-2024 History and physical note HISTORY AND [...] have a large neck STOP-Bang Score: 2 [id number] Score: Age: >=75 Sex: male CHF history: No Hypertension history: No Stroke/TIA/thromboembolism history: No Vascular disease history: No Diabetes history: No [id number] Score: 2 ARISCAT Score: Age: >80 Preoperative [...] mg by mouth once daily. Taking Yes [id number]-[id number] cb25 116-100 mg cap Take by mouth. [...] Stroke-residual deficit Stroke-No residual deficit Tumor involving HALL MONITOR Parkinson's Disease Multiple Sclerosis + Impaired memory Respiratory: No history of current cough or dyspnea, or pneumonia in the past 6 weeks. No history of respiratory/pulmonary symptoms or problems. Cardiovascular: Negative for Recent TN, Angina, Arrhythmia, Chest Pain, CHF GI: No history of GI symptoms or problems. No history of esophageal varices, recent ascites, or ETOH greater than 2 drinks per day. 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 Taking Yes qjqziaqw-aulkrcvmfxf-zmkh cb25 116-100 mg cap Take by mouth. [...] Stroke-residual deficit Stroke-No residual deficit Tumor involving HALL MONITOR Parkinson's Disease Multiple Sclerosis + Impaired memory Respiratory: No history of current cough or dyspnea, or pneumonia in the past 6 weeks. No history of respiratory/pulmonary symptoms or problems. Cardiovascular: Negative for Recent TN, Angina, Arrhythmia, Chest Pain, CHF GI: No history of GI symptoms or problems. No history of esophageal varices, recent ascites, or ETOH greater than 2 drinks per day. 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 Author Type: Physician Type: Progress Notes Filed: 11/12/2023 13:16 Note Text: The documentation for this note was completed by Ruthy Hewitt, [facility] acting as a scribe for Krsitin HALEY MD. 11/12/2023 1:09 PM. ASSESSMENT / [...] and surgery - Comanage with Dr Chow; [facility] POD #1 Cataract Presurgical Documentation Cataract: Both eyes (OU) Current Visual Acuity Right Eye Distance CC 20/40 Left Eye Distance CC 20/30 Best Corrected Vision Right Eye 20/30 Best Corrected Vision Left Eye 20/30-2 Glare Testing: Right Eye High less than 20/400 Left Eye High less than 20/400 Visual Function: Marceilno Morales states that the decline in vision [...] patient was offered a surgery/procedure at a [facility] facility. The surgeon/proceduralist and patient have discussed [...] HALEY MD November 12, 2023 1:09 PM [facility] 11-12-2023 History of Present illness Narrative [...] and surgery - Comanage with Dr Chow; [facility] POD #1 Cataract Presurgical Documentation Cataract: [...] patient was offered a surgery/procedure at a [facility] facility. The surgeon/proceduralist and patient have discussed [...] 2023 12:55 PM documented in this encounter [facility] 11-12-2023 Note HNO ID: [id number] Author: DENISE ANGUIANO OD Service: ? 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, bilateral Hyperopia with astigmatism and presbyopia, bilateral [facility] [place] Diagnosis Pre-op evaluation- Primary Preoperative examination, [...] on Levothyroxine (Synthroid) documented in this encounter [facility] note* Diagnosis Combined forms of age-related cataract [...] and presbyopia, bilateral documented in this encounter [facility] Summary Purpose Family History No Family History Records FoundNo Family History Records FoundNo Family History Records Found Advance Directives No Advanced Directives Records FoundNo Advanced Directives Records FoundNo Advanced Directives Records Found Additional Source Comments (unrecognized sect ion and content) No Status Records FoundNo Status Records FoundNo Status Records Found INFORMATION SOURCE (unrecogn ized section and content) DATE CREATED AUTHOR 08/18/2018 [facility] DATE CREATED AUTHOR AUTHOR'S ORGANIZ ATION 01/21/2023 [facility] DATE CREATED AUTHOR AUTHOR'S ORGANIZ ATION 02/11/2024 [facility] Source Comments (unrecognize d section and content) In the event this informatio n is protected by the Federal Confidentiality of Alcohol and Drug Abuse Patient Records regulations: The Federal rules restrict any use of the information to criminally investigate or prosecute any alcohol or drug abuse patient.[facility] the event this information is protected by the Federal Confidentiality of Alcohol and Drug Abuse Patient Records regulations: The Federal rules restrict any use of the information to criminally investigate or prosecute any alcohol or drug abuse patient.[facility] the event this information is protected by the Federal Confidentiality of Alcohol and Drug Abuse Patient Records regulations: The Federal rules restrict any use of the information to criminally investigate or prosecute any alcohol or drug abuse patient.[facility] Reason for Visit (unrecogniz ed section and [...] Care Teams (unrecognized sec tion and content) Criminal Psychologist Relationship Specialty Start Date End Date Ulysses Glover MD [address] [place], [place] [id number] PCP - General Family Medicine 01/20/24 Criminal Psychologist Relationship Specialty Start Date End Date Ulysses Glover MD [address] [place] [address] PCP - General Family Medicine 01/20/24 FOR [...] BE BASED ON THE PRIMARY CLINICAL RECORDS. [employer] provides no warranty or guarantee of the accuracy or completeness of information in this document.
[2025-04-07 06:52] LABS: Hematocrit 44.4 % (42.0-54.0); Hemoglobin 15.0 g/dL (14.0-18.0); Immature Granulocytes Abs Auto 0.01 10^3/uL (0.00-0.03); Immature Granulocytes Pct Auto 0.2 % (0.0-0.5); Lymphocytes Absolute Auto 1.9 10^3/uL (1.2-3.8); Mean Corpuscular HGB Conc 33.8 g/dL (29.9-35.2); Mean Corpuscular Hemoglobin 33.4 pg (25.9-34.0); Mean Corpuscular Volume 98.9 fL (80.0-94.0); Platelet Count 128 10^3/uL (150-450); Red Blood Count 4.49 10^6/uL (4.70-6.10); White Blood Count 4.5 10^3/uL (4.0-11.0)
[2025-04-07 07:14] LABS: Iron 65.0 ug/dL (65.0-175.0)
== END 2025-04-07 06:43 | disposition home or self-care (01) ==
LOC: LAB 06:42
PROVIDERS: PCP Family Medicine; Visit Provider Family Medicine
DX: D69.6 Thrombocytopenia, unspecified (principal)
CPT/HCPCS: 36415; 83540; 85025

== ENCOUNTER 2025-05-02 11:49 | Outpatient (OUT) | payer MEDICARE, SELFPAY ==
--- NOTE | 2025-05-02 | MR_ITS ---
[address] [address] Patient Name: BAKARI MORALES MRN: [id number] date: 1940 Sex: M Assigned Patient Location: LAB Current Patient Location: LAB Accession/Order Number: [id number] Exam Date: 05/02/2025 13:00 Report Date: 05/02/2025 21:58 At the request of: ULYSSES BUTT MD Procedure: MR head/brain wo/w con MR head/brain wo/w con 05/02/2025 2:04 PM SIGN AND SYMPTOMS: ^hypertension, hypercholesterolemia, memory loss, hypothyroid PROTOCOL: Multiplanar multisequence MR images of the brain with and without IV contrast CONTRAST: 19 mL of intravenous Dotarem COMPARISON: None. FINDINGS: Extra axial spaces: There is age-related cortical atrophy. Atrophy is greatest along the medial aspect of the temporal lobes right greater than left. Hemorrhage: None. Ventricular system: Within normal limits. Basal cisterns: Within normal limits and not effaced. Cerebral parenchyma: Periventricular and subcortical white matter T2 and FLAIR hyperintense signal is noted consistent with chronic microvascular ischemic change. No abnormal postcontrast enhancement. Midline shift: None.. 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 Brainstem: Within normal limits. OTHER: Calvarium: Normal marrow signal. Vascular system: Satisfactory flow voids within the anterior and posterior circulation. Visualized Paranasal sinuses: Within normal limits. Visualized Orbits: Within normal limits. Visualized upper cervical spine: Within normal limits. Sella and skull base: Within normal limits. MR/MR head/brain wo/w con IMPRESSION: No acute intracranial pathology or abnormal postcontrast enhancement. There is cortical atrophy which is most focally noted along the medial aspect of the temporal lobes, right greater than left. Impression dictated by: John Meng M.D. 05/02/2025 9:58 PM Dictation Location: [place] [address] Electronically authenticated by: [id number] Y Date: 05/02/2025 21:58
--- OUTSIDE RECORDS SUMMARY | 2025-05-02 11:59 | XMS_ITS | CCD ---
Author Organization [facility] Care Team Providers Care Customer Security Clerk Name Role Phone PHYSICIAN, DEFAULT Unavailable Unavailable [...] Provider UnavailUlysses Martines MD Primary Care Provider [phone] ULYSSES GLOVER Primary Care Unavailable BRANDY V, [...] on above: Take 2 tablets by mo [facility] every afternoon. lutein 40 mg oral capsule (3 sources) lutein 40 mg cap Take by mouth. 0 Active Comment on above: Take by mouth. 24 hr memantine hydrochloride 14 mg extended release oral capsule (1 source) G-sjohfk-F-aspartate Receptor Antagonist take 2 capsules by mouth [...] EVALon 024 ANES POSTPROC EVAL HNO ID: [id number] Author: LORETTA BARRY MD Service: Anesthesiology Author Type: Anesthesiologist Type: Anesthesia Postprocedure Evaluation Filed: 02/10/2024 13:00 Note Text: POST ANESTHESIA EVALUATION NOTE : 1940 Procedure Summary Date: 02/10/24 Room / Location: [address] Anesthesia Start: 1237 Anesthesia Stop: 1253 [...] February 10, 2024 TIME: 1:00 PM CSN: [id number] Normal [facility] ANES PRE-OPon 02-10-2024 ANES PRE-OP HNO ID: [id number] Author: LORETTA BARRY MD Service: Anesthesiology Author Type: Anesthesiologist Type: Anesthesia Preprocedure Evaluation Filed: 02/10/2024 12:31 Note Text: ANESTHESIOLOGY DAY OF SURGERY NOTE : 1940 Procedure Information Date/Time: 02/10/24 1155 Procedures: PHACOEMULSIFICATION CATARACT IMPLANT INTRAOCULAR LENS W/O ENDOSCOPIC CYCLOPHOTOCOAGULATION (Left: Eye) OPHTHALMIC BIOMETRY BY PARTIAL COHERENCE INTERFEROMETRY W/INTRAOCULAR LENS POWER CALCULATION (Left: Eye) Location: [address] Surgeons: Kristin Haley V, MD Estimated [...] February 10, 2024 TIME: 12:30 PM CSN: [id number] Normal [facility] OPERATIVE NOon 02-10-2024 OPERATIVE NO HNO ID: [id number] Author: KRISTIN HALEY MD Service: Ophthalmology Author Type: Physician Type: Operative Report Filed: 02/10/2024 12:52 Note Text: OPERATIVE REPORT DATE OF SERVICE: February 10, 2024 PRIMARY SURGEON: Kristin Haley M.D. FORMULA CHECKER: None [Any nurse listed as assisting or [...] corneal incision was created temporally with a Yocha Dehe blade then a 2.4 mm keratome. The [...] Implant Name Type Inv. Item Serial No. Reference Assistant Lot No. LRB No. Used Action Model No. [id number] [employer] - [id number] Intraocular Lens [id number] [employer] [id number] [employer] Left 1 Implanted [id number] [...] PM - Comanage with Dr Chow; [facility] POD #1 Kristin HALEY MD [facility] HISTORY PHYSICALon HISTORY PHYSICAL HNO ID: [id number] Author: JOHAN SANCHEZ APRN.JAIL GUARD Service: ? Author Type: Nurse Practitioner Type: [...] have a large neck STOP-Bang Score: 2 [id number] Score: Age: >=75 Sex: male CHF history: No Hypertension history: No Stroke/TIA/thromboembol ism history: No Vascular disease history: No Diabetes history: No [id number] Score: 2 ARISCAT Score: Age: >80 Preoperative [...] PAF (paroxysmal atrial fibrillation) ([facility]) PAST SURGICAL HISTORY Procedure Laterality Date COLONOSCOPY [...] 5 mg (more content not included)... Normal [facility] BNPon 01-20-2023 Natriuretic peptide B (Bld) [Mass/Vol] 1564.0 pg/mL Normal <=1,800.0 [facility] Comment on above: Performed By: #### L IPID, BNP, FT3, T4, URIC, TSH, MG, CMP #### [facility] [address] [place] [address] Dr. Lida Venegas CBC AUTO DIFFon 01-20-2023 BASO # 0.0 103/ul Normal 0.0-0.1 [facility] Comment on above: Performed By: #### A 1C #### [facility] [address] [place] [address] Dr. Lida Venegas Basophils/100 WBC (Bld) 0.4 % Normal 0.2-2.0 [facility] Comment on above: Performed By: #### A 1C #### [facility] [address] [place] [address] Dr. Lida Venegas EO # 0.0 103/ul Normal 0.0-0.[address] [facility] Comment on above: Performed By: #### A 1C #### [facility] [address] [place] [address] Dr. Lida Venegas Eosinophils/100 WBC (Bld) 0.3 % Critically low 0.9-7.0 [facility] Comment on above: Performed By: #### A 1C #### [facility] [address] [place] [address] Dr. Lida Venegas Erythrocyte distribution width (RBC) [Ratio] 12.8 % Normal 11.0-15.0 [facility] Comment on above: Performed By: #### A 1C #### [facility] [address] [place] [address] Dr. Lida Venegas Hematocrit (Bld) [Volume fraction] 47.6 % Normal 42.0-54.0 [facility] Comment on above: Performed By: #### A 1C #### [facility] [address] [place] [address] Dr. Lida Venegas Hemoglobin (Bld) [Mass/Vol] 15.8 g/dL Normal 14.0-18.0 [facility] Comment on above: Performed By: #### A 1C #### [facility] [address] [place] [address] Dr. Lida Venegas IG # 0.03 10e3/ul Normal 0.00-0.03 [facility] Comment on above: Performed By: #### A 1C #### [facility] [address] [place] [address] Dr. Lida Venegas IG % 0.4 % Normal 0.0-0.5 [facility] Comment on above: Performed By: #### A 1C #### [facility] [address] [place] [address] Dr. Lida Venegas LYMPH # 1.7 103/ul Normal 1.2-3.8 [facility] Comment on above: Performed By: #### A 1C #### [facility] [address] [place] [address] Dr. Lida Venegas Lymphocytes/100 WBC (Bld) 23.9 % Normal 20.5-60.0 [facility] Comment on above: Performed By: #### A 1C #### [facility] [address] [place] [address] Dr. Lida Venegas MANUAL DIFF REQ NO Normal [facility] Comment on above: Performed By: #### A 1C #### [facility] [address] [place] [address] Dr. Lida Venegas MCH (RBC) [Entitic mass] 32.4 pg Normal 25.9-34.0 [facility] Comment on above: Performed By: #### A 1C #### [facility] [address] [address] [address] Lida Venegas MCHC (RBC) [Mass/Vol] 33.2 g/dL Normal 29.9-35.2 [facility] Comment on above: Performed By: #### A 1C #### [facility] [address] [address] [address] Lida Venegas MCV (RBC) [Entitic vol] 97.5 fL Critically high 80.0-94.0 [facility] Comment on above: Performed By: #### A 1C #### [facility] [address] [place] [address] Dr. Lida Venegas MONO # 0.4 103/ul Normal 0.3-0.8 [facility] Comment on above: Performed By: #### A 1C #### [facility] [address] [place] [address] Dr. Lida Venegas Monocytes/100 WBC (Bld) 5.9 % Normal 1.7-12.0 [facility] Comment on above: Performed By: #### A 1C #### [facility] [address] [place] [address] Dr. Lida Venegas NEUT # 4.8 103/ul Normal 1.4-6.5 [facility] Comment on above: Performed By: #### A 1C #### [facility] [address] [place] [address] Dr. Lida Venegas Neutrophils/100 WBC (Bld) 69.1 % Normal 43.0-75.0 [facility] Comment on above: Performed By: #### A 1C #### [facility] [address] [place] [address] Dr. Lida Venegas Platelet mean volume (Bld) [Entitic vol] 12.6 fL Normal 9.5-13.5 [facility] Comment on above: Performed By: #### A 1C #### [facility] [address] [place] [address] Dr. Lida Venegas PLT 138 103/ul Critically low 150-450 [facility] Comment on above: Performed By: #### A 1C #### [facility] [address] [address] [address] Lida Venegas RBC 4.88 106/ul Normal 4.70-6.10 [facility] Comment on above: Performed By: #### A 1C #### [facility] [address] [address] [address] Lida Venegas WBC 7.0 103/ul Normal 4.0-11.0 [facility] Comment on above: Performed By: #### A 1C #### [facility] [address] [address] [address] Lida Venegas FREE T3on 01-20-2023 FREE T3 1.75 pg/mlL Critically low 2.18-3.98 [facility] Comment on above: Performed By: #### L IPID, BNP, FT3, T4, URIC, TSH, MG, CMP #### [facility] [address] [address] [address] Lida Venegas GLYCOHEMOGLOBIN A1Con 2022 ADA RECOMMENDATION SEE BELOW Normal [facility] Comment on above: Result Comment: ADA RECOMMENDED LIMIT 4.0 - 6.0 ADA THERAPEUTIC TARGET < 7.0 ACTION SUGGESTED > 7.0 Performed By: #### A 1C #### [facility] [address] [place] [address] Dr. Lida Venegas Glucose [Mass/Vol] 143 mg/dL Normal [facility] Comment on above: Performed By: #### A 1C #### [facility] [address] [place] [address] Dr. Lida Venegas HbA1c (Bld) [Mass fraction] 6.6 % Critically high 4.5-6.2 [facility] Comment on above: Performed By: #### A 1C #### [facility] [address] [place] [address] Dr. Lida Venegas LIPID PROFILEon 01-20-2023 CHOL-HDL RATIO NORM SEE BELOW Normal [facility] Comment on above: Result Comment: 3.3 - 4.4 LOW RISK 4.4 - 7.1 AVERAGE RISK 7.1 - 11.0 MODERATE RISK >11.0 HIGH RISK Performed By: #### L IPID, BNP, FT3, T4, URIC, TSH, MG, CMP #### [facility] [address] [place] [address] Dr. Lida Venegas Cholesterol [Mass/Vol] 252 mg/dL Critically high <=200 [facility] Comment on above: Performed By: #### L IPID, BNP, FT3, T4, URIC, TSH, MG, CMP #### [facility] [address] [place] [address] Dr. Lida Venegas Cholesterol in HDL [Mass/Vol] 57 mg/dL Normal 40-60 [facility] Comment on above: Performed By: #### L IPID, BNP, FT3, T4, URIC, TSH, MG, CMP #### [facility] [address] [place] [address] Dr. Lida Venegas Cholesterol in LDL [Mass/Vol] 171.0 mg/dL Normal [facility] Comment on above: Performed By: #### L IPID, BNP, FT3, T4, URIC, TSH, MG, CMP #### [facility] [address] [place] [address] Dr. Lida Venegas Cholesterol.total/Ch olesterol in HDL [Mass ratio] 4.4 {ratio} Normal [facility] Comment on above: Performed By: #### L IPID, BNP, FT3, T4, URIC, TSH, MG, CMP #### [facility] [address] [place] [address] Dr. Lida Venegas HDL NORMAL > or = 60 mg/dl - LO W CARDIOVASCULAR RISK <40 mg/dl - HIGH CARDIOVASCULAR RISK Normal [facility] Comment on above: Performed By: #### L IPID, BNP, FT3, T4, URIC, TSH, MG, CMP #### [facility] [address] [place] [address] Dr. Lida Venegas LDL CALC NORMAL SEE BELOW Normal [facility] Comment on above: Result Comment: <100 mg/dl OPTIMAL 100 - 129 mg/dl NEAR OR ABOVE OPTIMAL 130 - 159 mg/dl BORDERLINE HIGH 160 - 189 mg/dl HIGH >190 mg/dl VERY HIGH Performed By: #### L IPID, BNP, FT3, T4, URIC, TSH, MG, CMP #### [facility] [address] [place] [address] Dr. Lida Venegas Triglyceride [Mass/Vol] 120 mg/dL Normal <=150 [facility] Comment on above: Performed By: #### L IPID, BNP, FT3, T4, URIC, TSH, MG, CMP #### [facility] [address] [place] [address] Dr. Lida Venegas VLDL CALC 24.0 mg/dL Normal [facility] Comment on above: Performed By: #### L IPID, BNP, FT3, T4, URIC, TSH, MG, CMP #### [facility] [address] [place] [address] Dr. Lida Venegas MAGNESIUMon 01-20-2023 Magnesium [Mass/Vol] 1.7 mg/dL Critically low 1.8-2.4 [facility] Comment on above: Performed By: #### L IPID, BNP, FT3, T4, URIC, TSH, MG, CMP #### [facility] [address] [place] [address] Dr. Lida Venegas PROF 14(COMP METB)on 023 Albumin [Mass/Vol] 3.9 g/dL Normal 3.4-5.0 [facility] Comment on above: Performed By: #### L IPID, BNP, FT3, T4, URIC, TSH, MG, CMP #### [facility] [address] [place] [address] Dr. Lida Venegas Albumin/Globulin [Mass ratio] 0.9 {ratio} Normal [facility] Comment on above: Performed By: #### L IPID, BNP, FT3, T4, URIC, TSH, MG, CMP #### [facility] [address] [place] [address] Dr. Lida Venegas ALP [Catalytic activity/Vol] 72 U/L Normal 46-116 [facility] Comment on above: Performed By: #### L IPID, BNP, FT3, T4, URIC, TSH, MG, CMP #### [facility] [address] [place] [address] Dr. Lida Venegas ALT [Catalytic activity/Vol] 36 U/L Normal 16-63 [facility] Comment on above: Performed By: #### L IPID, BNP, FT3, T4, URIC, TSH, MG, CMP #### [facility] [address] [place] [address] Dr. Lida Venegas Anion gap [Moles/Vol] 11.0 mmol/L Normal [facility] Comment on above: Performed By: #### L IPID, BNP, FT3, T4, URIC, TSH, MG, CMP #### [facility] [address] [place] [address] Dr. Lida Venegas AST [Catalytic activity/Vol] 23 U/L Normal 15-37 [facility] Comment on above: Performed By: #### L IPID, BNP, FT3, T4, URIC, TSH, MG, CMP #### [facility] [address] [place] [address] Dr. Lida Venegas Bilirubin [Mass/Vol] 0.5 mg/dL Normal 0.2-1.0 [facility] Comment on above: Performed By: #### L IPID, BNP, FT3, T4, URIC, TSH, MG, CMP #### [facility] [address] [place] [address] Dr. Lida Venegas Calcium [Mass/Vol] 9.7 mg/dL Normal 8.5-10.1 [facility] Comment on above: Performed By: #### L IPID, BNP, FT3, T4, URIC, TSH, MG, CMP #### [facility] [address] [place] [address] Dr. Lida Venegas Chloride [Moles/Vol] 103 mmol/L Normal 98-107 [facility] Comment on above: Performed By: #### L IPID, BNP, FT3, T4, URIC, TSH, MG, CMP #### [facility] [address] [place] [address] Dr. Lida Venegas CO2 [Moles/Vol] 32.7 mmol/L Critically high 21.0-32.0 [facility] Comment on above: Performed By: #### L IPID, BNP, FT3, T4, URIC, TSH, MG, CMP #### [facility] [address] [place] [address] Dr. Lida Venegas Creatinine [Mass/Vol] 1.33 mg/dL Critically high 0.70-1.30 [facility] Comment on above: Performed By: #### L IPID, BNP, FT3, T4, URIC, TSH, MG, CMP #### [facility] [address] [place] [address] Dr. Lida Venegas EGFR-AF CENTRAL AFRICAN >60 Normal >=60 [facility] Comment on above: Performed By: #### L IPID, BNP, FT3, T4, URIC, TSH, MG, CMP #### [facility] [address] [place] [address] Dr. Lida Venegas EGFR-NON AF CENTRAL AFRICAN 51 mL/min/1.73m2 Critically low >=60 [facility] Comment on above: Performed By: #### L IPID, BNP, FT3, T4, URIC, TSH, MG, CMP #### [facility] [address] [place] [address] Dr. Lida Venegas Globulin (S) [Mass/Vol] 4.0 g/dL Normal [facility] Comment on above: Performed By: #### L IPID, BNP, FT3, T4, URIC, TSH, MG, CMP #### [facility] [address] [place] [address] Dr. Lida Venegas Glucose [Mass/Vol] 149 mg/dL Critically high 74-106 [facility] Comment on above: Performed By: #### L IPID, BNP, FT3, T4, URIC, TSH, MG, CMP #### [facility] [address] [place] [address] Dr. Lida Venegas Potassium [Moles/Vol] 4.7 mmol/L Normal 3.5-5.1 [facility] Comment on above: Performed By: #### L IPID, BNP, FT3, T4, URIC, TSH, MG, CMP #### [facility] [address] [place] [address] Dr. Lida Venegas Protein [Mass/Vol] 7.9 g/dL Normal 6.4-8.2 [facility] Comment on above: Performed By: #### L IPID, BNP, FT3, T4, URIC, TSH, MG, CMP #### [facility] [address] [place] [address] Dr. Lida Venegas Sodium [Moles/Vol] 142 mmol/L Normal 136-145 [facility] Comment on above: Performed By: #### L IPID, BNP, FT3, T4, URIC, TSH, MG, CMP #### [facility] [address] [place] [address] Dr. Lida Venegas Urea nitrogen [Mass/Vol] 20.0 mg/dL Critically high 7.0-18.0 [facility] Comment on above: Performed By: #### L IPID, BNP, FT3, T4, URIC, TSH, MG, CMP #### [facility] [address] [place] [address] Dr. Lida Venegas Urea nitrogen/Creatinine [Mass ratio] 15.0 mg/mg Normal [facility] Comment on above: Performed By: #### L IPID, BNP, FT3, T4, URIC, TSH, MG, CMP #### [facility] [address] [place] [address] Dr. Lida Venegas T4on 01-20-2023 T4 [Mass/Vol] 6.70 ug/dL Normal 4.50-12.10 [facility] Comment on above: Performed By: #### L IPID, BNP, FT3, T4, URIC, TSH, MG, CMP #### [facility] [address] [place] [address] Dr. Lida Venegas TSHon 01-20-2023 TSH 1.371 uIU/mL Normal 0.358-3.740 [facility] Comment on above: Performed By: #### L IPID, BNP, FT3, T4, URIC, TSH, MG, CMP #### [facility] [address] [place] [address] Dr. Lida Venegas URIC ACID SERUMon 01-20-2023 Urate [Mass/Vol] 0.2 mg/dL Critically low 3.5-7.[address] [facility] Comment on above: Performed By: #### L IPID, BNP, FT3, T4, URIC, TSH, MG, CMP #### [facility] [address] [address] [address] Lida Venegas Vital Signs Date Time Vital Sign Value Performing Clinician Faci lity 02-04-2024 13:07-0400 Body height 188 cm Pacc 1 Work Phone: [facility] 02-04-2024 13:07-0400 Body mass index (BMI) [Ratio] 28.02 kg/m2 Pacc 1 Work Phone: [facility] 02-04-2024 13:07-0400 Body temperature 97.5 [degF] Pacc 1 Work Phone: [facility] 02-04-2024 13:07-0400 Body weight 99 kg Pacc 1 Work Phone: [facility] 02-04-2024 13:07-0400 Diastolic blood pressure 81 mm[Hg] Pacc 1 Work Phone: [facility] 02-04-2024 13:07-0400 Heart rate 82 /min Pacc 1 Work Phone: [facility] 02-04-2024 13:07-0400 Respiratory rate 14 /min Pacc 1 Work Phone: [facility] 02-04-2024 13:07-0400 SaO2% (BldA) [Mass fraction] 97 % Pacc 1 Work Phone: [facility] 02-04-2024 13:07-0400 Systolic blood pressure 148 mm[Hg] Pacc 1 Work Phone: [facility] Encounters Encounter Date Encounter Type Care Provider Facility Start: 02-10-2024 End: 02-10-2024 ambulatory KRISTIN BRANDY V Facility:[facility] Start: 02-04-2024 End: 02-04-2024 Patient encounter procedure Eye Measurements Work Phone: Ophthalmology Comment on above: Combined forms of ag e-related cataract of both eyes Start: 02-04-2024 End: 02-04-2024 Admission to establishment [facility] 1 Work Phone: Pre Anesthesia Start: 02-04-2024 End: 02-04-2024 ambulatory KRISTIN HALEY V Facility:[facility] Start: 02-04-2024 End: 02-04-2024 Anesthesia consultation [place] [address] Work Phone: Pre Anesthesia Comment on above: Pre-op evaluation (P rimary Dx); Other specified hypothyroidism; Gastroesophageal reflux disease, unspecified whether esophagitis present; Paroxysmal atrial fibrillation (HCC) Start: 02-04-2024 End: 02-04-2024 Preprocedural examination done [facility] 1 Work Phone: [facility] Work Phone: Start: 01-20-2024 End: 01-20-2024 ambulatory ULYSSES GLOVER Facility:[facility] Start: 11-12-2023 End: 11-12-2023 ambulatory KRISTIN HALEY V Facility:[facility] Start: 11-12-2023 End: 11-12-2023 Patient encounter procedure [...] End: 08-17-2018 Patient encounter procedure DEFAULT PHYSICIAN Facility:[facility] Start: 07-26-2018 End: 07-27-2018 Patient encounter procedure DEFAULT PHYSICIAN Facility:[facility] Procedures Date Procedure Procedure Detail Performing Clinician Start: 01-20-[address] JOYCELYN GLOVER . Comment on above: Performed By: #### P [facility] #### [facility] [address] [address] [address] Lida Venegas Plan of Treatment Date Care Activity Detail Author Start: 11-11-2024 End: 05-05-2025 IOL BIOMETRY W/ IOL CALC OU (BOTH EYES) IOL BIOMETRY W/ IOL CALC OU (BOTH EYES) OPHT Imaging Routine Combined forms of age-related cataract of both eyes Expected: 11/11/2024, Expires: 05/05/2025 [facility] Work Phone: Comment on above: Expected: 11/11/2024, Expires: Start: 05-08-2024 Influenza vaccination Influenza Vaccine (Season Ended) [facility] Start: 03-16-2024 End: 03-16-2024 Admission to same day surgery center 03/16/2024 9:50 AM EDT - 03/16/2024 10:20 AM EDT Surgery Ambulatory Surgery [address] [place] [address] Kristin Haley V, MD [address] [place], [place] [id number] PHACOEMULSIFICATION CATARACT IMPLANT INTRAOCULAR LENS W/O ENDOSCOPIC [...] and presbyopia, bilateral 03/16/2024 9:50 AM EDT [facility] Start: 03-16-2024 Subsequent hospital visit by physician 03/16/2024 9:50 AM EDT Hospital Encounter Ambulatory Surgery [address] [place] [address] Krsitin Haley V, MD [address] [place], [place] [id number] Combined forms of age-related cataract of both [...] and presbyopia, bilateral 03/16/2024 9:50 AM EDT [facility] Start: 02-10-2024 End: 02-10-2024 Admission to same day surgery center 02/10/2024 11:55 AM EDT - 02/10/2024 12:25 PM EDT Surgery Ambulatory Surgery [address] [place] [address] Kristin Haley V, MD [address] [place], [place] [id number] PHACOEMULSIFICATION CATARACT IMPLANT INTRAOCULAR LENS W/O ENDOSCOPIC [...] and presbyopia, bilateral 02/10/2024 11:55 AM EDT [facility] Start: 02-10-2024 Subsequent hospital visit by physician 02/10/2024 11:55 AM EDT Hospital Encounter Ambulatory Surgery [address] [place] [address] Kristin Haley V, MD [address] [facility] [place], [place] [id number] Combined forms of age-related cataract of both [...] 09-07-2023 Advance Directive Discussion Advance Directive Discussion [facility] Start: 09-07-2023 Behavioral Health Screening Behavioral Health Screening [facility] Start: 09-07-2023 Depression Assessment Depression Assessment [facility] Start: 05-08-2023 Covid-19 Vaccine ( season) Covid-19 Vaccine ( season) [facility] Start: 05-08-2023 Influenza vaccination Influenza Vaccine (#1) [facility] Start: 2005 Pneumococcal Vaccine: 65+ (1 of 1 - PCV) Pneumococcal Vaccine: 65+ (1 of 1 - PCV) [facility] Start: 2000 RSV Vaccine (1 - 1-dose 60+ series) RSV Vaccine (1 - 1-dose 60+ series) [facility] Start: 1990 Shingrix Vaccine (1 of 2) Shingrix Vaccine (1 of 2) [facility] Start: 1985 Diabetes Screening Diabetes Screening [facility] Start: 1959 Urine microalbumin profile DTaP,Tdap,Td Vaccine (1 - Tdap) [facility] Start: 1940 Covid-19 Vaccine (#1) Covid-19 Vaccine (#1) [facility] End: 04-25-2025 CORNEAL TOPOGRAPHY PENTACAM OU (BOTH EYES) CORNEAL TOPOGRAPHY PENTACAM OU (BOTH EYES) OPHT Imaging Routine Combined forms of age-related cataract of both eyes 1 Occurrences starting 11/02/2023 until 04/25/2025 [facility] Work Phone: Comment on above: 1 Occurrences starting 11/02/2023 until 04/25/2025 CORNEAL TOPOGRAPHY P ENTACAM OU (BOTH EYES) CORNEAL TOPOGRAPHY PENTACAM OU (BOTH EYES) OPHT Imaging Routine Combined forms of age-related cataract of both eyes 11/12/2023 12:34 PM EST [facility] Work Phone: End: 04-25-2025 OCT MACULA CIRRUS OU (BOTH EYES) OCT MACULA CIRRUS OU (BOTH EYES) OPHT Imaging Routine Combined forms of age-related cataract of both eyes 1 Occurrences starting 11/02/2023 until 04/25/2025 [facility] Work Phone: Comment on above: 1 Occurrences starting 11/02/2023 until 04/25/2025 OCT MACULA CIRRUS OU (BOTH EYES) OCT MACULA CIRRUS OU (BOTH EYES) OPHT Imaging Routine Combined forms of age-related cataract of both eyes 11/12/2023 12:41 PM [facility] Work Phone: [facility] Immunizations Immunization Date Immunization Notes Care Provider [facility] 07-12-2013 influenza virus vacc ine, unspecified formulation Kristin Horner MD Work Phone: [facility] Payers Date Payer Category Payer Medicare A[employer] MEDICARE A ETNA MEDICARE PPO [id number] 2021-Present [phone] [address] [place] [address] PPO [id number] 1959 Medicare [id number] 1940 Unknown [id number] 1940 Unknown [id number] 1940 Unknown [id number] 1940 Unknown [id number] Unknown Social History Date Type Detail Facility Start: 11-12-2023 Tobacco smoking stat us NHIS Never smoked tobacco [facility] Start: 11-12-2023 Tobacco use and exposure Smoke less tobacco non-user [facility] Start: 11-12-2023 Alcohol intake Current drinke r of alcohol (finding) [facility] Start: 11-12-2023 End: 01-20-2024 History of Social function [facility] Start: 11-12-2023 End: 01-20-2024 Area Deprivation Index [facility] National Score (1-10 0), lower number is lower risk 63 [facility] Start: 11-12-2023 Alcohol Comment 1 beer a month [facility] Start: 1940 Sex Assigned At Not on file [facility] Start: 02-04-2024 Alcohol intake Ex-drinker (finding) [facility] Clinical Notes 11-12-2023 to 02-04-2024 Mena Francisco COA - 02/04/2024 1:45 PM EDTPatient Johan Jasso APRN.JAIL GUARD - 02/04/2024 1:04 PM EDJohan Lo APRN.EBONY - 02/04/2024 1:04 PM EDT Note Date & Type Note Facility 02-04-2024 Note HNO ID: [id number] Author: MENA FRANCISCO COA Service: ? Author Type: Grinding Wheel Inspector Type: Progress Notes Filed: 02/04/2024 13:46 Note Text: Confirmed Aim: [place] OU PATIENT UNDERSTANDS HE WILL NEED GLASSES FOR NEAR AND INTERMEDIATE VISION. RANJIT Thakur February 04, 2024 1:45 PM [facility] 02-04-2024 History of Present illness Narrative Confirmed Aim: [place] OU PATIENT UNDERSTANDS HE WILL NEED GLASSES FOR NEAR AND INTERMEDIATE VISION. RANJIT Thakur February 04, 2024 1:45 PM documented in this encounter [facility] 02-04-2024 Instructions Johan Sanchez APRN.JAIL GUARD - 02/04/2024 1:12 PM EDT PATIENT PREOPERATIVE INSTRUCTIONS Kristin Haley V, MD has scheduled you for your procedure at this surgery center: [facility]: [phone] --[address] [facility] [place] [address]. Please read below carefully for your personalized [...] Procedures: - YOU MUST HAVE A RESPONSIBLE RN SURGICAL TAKE YOU HOME. A HOME HEALTH CARE COORDINATOR OR RETAIL SALES PROFESSIONAL CANNOT BE MADE A RESPONSIBLE RN SURGICAL. - We recommend that a responsible person stays with you overnight to take care of you. - You cannot stay in a hotel alone after outpatient surgery. You will not be permitted to have your surgery, if you do not have someone to take care of you. If you already have an Advance Directive, please fax a copy to [phone] or email to for it to be [...] Johan Sanchez APRN.EBONY documented in this encounter [facility] 02-04-2024 History and physical note HISTORY [...] have a large neck STOP-Bang Score: 2 [id number] Score: Age: >=75 Sex: male CHF history: No Hypertension history: No Stroke/TIA/thromboembolism history: No Vascular disease history: No Diabetes history: No [id number] Score: 2 ARISCAT Score: Age: >80 Preoperative [...] mg by mouth once daily. Taking Yes [id number] cb25 116-100 mg cap Take by mouth. 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 No history of respiratory/pulmonary symptoms or problems. Cardiovascular: Negative for Recent [place], Angina, Arrhythmia, Chest Pain, CHF GI: No history of GI symptoms or problems. No history of esophageal varices, recent ascites, or ETOH greater than 2 drinks per day. 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 Taking Yes mhqaszdm-jihbbpiqizk-[id number] cb25 116-100 mg cap Take by mouth. 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 No history of respiratory/pulmonary symptoms or problems. Cardiovascular: Negative for Recent [place], Angina, Arrhythmia, Chest Pain, CHF GI: No history of GI symptoms or problems. No history of esophageal varices, recent ascites, or ETOH greater than 2 drinks per day. 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 Author Type: Physician Type: Progress Notes Filed: 11/12/2023 13:16 Note Text: The documentation for this note was completed by Ruthy Hewitt, [facility] acting as a scribe for Kristin [...] surgery - Comanage with Dr Chow; [facility] POD #1 Cataract Presurgical Documentation Cataract: [...] patient was offered a surgery/procedure at a [facility] facility. The surgeon/proceduralist and patient have [...] HALEY MD November 12, 2023 1:09 PM [facility] 11-12-2023 History of Present illness Narrative The [...] surgery - Comanage with Dr Chow; [facility] POD #1 Cataract Presurgical Documentation Cataract: [...] patient was offered a surgery/procedure at a [facility] facility. The surgeon/proceduralist and patient have [...] 2023 12:55 PM documented in this encounter [facility] 11-12-2023 Note HNO ID: [id number] Author: DENISE ANGUIANO OD Service: ? 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, bilateral Hyperopia with astigmatism and presbyopia, bilateral [facility] Diagnosis Pre-op evaluation- Primary Preoperative examination, [...] on Levothyroxine (Synthroid) documented in this encounter [facility] note* Diagnosis Combined forms of age-related [...] and presbyopia, bilateral documented in this encounter [facility] Summary Purpose Family History No Family History Records FoundNo Family History Records FoundNo Family History Records Found Advance Directives No Advanced Directives Records FoundNo Advanced Directives Records FoundNo Advanced Directives Records Found Additional Source Comments (unrecognized sect ion and content) No Status Records FoundNo Status Records FoundNo Status Records Found INFORMATION SOURCE (unrecogn ized section and content) DATE CREATED AUTHOR 08/18/2018 [facility] DATE CREATED AUTHOR AUTHOR'S ORGANIZ ATION 01/21/2023 [facility] DATE CREATED AUTHOR AUTHOR'S ORGANIZ ATION 02/11/2024 [facility] Source Comments (unrecognize d section and content) In the event this informatio n is protected by the Federal Confidentiality of Alcohol and Drug Abuse Patient Records regulations: The Federal rules restrict any use of the information to criminally investigate or prosecute any alcohol or drug abuse patient.[facility] the event this information is protected by the Federal Confidentiality of Alcohol and Drug Abuse Patient Records regulations: The Federal rules restrict any use of the information to criminally investigate or prosecute any alcohol or drug abuse patient.[facility] the event this information is protected by the Federal Confidentiality of Alcohol and Drug Abuse Patient Records regulations: The Federal rules restrict any use of the information to criminally investigate or prosecute any alcohol or drug abuse patient.[facility] Reason for Visit (unrecogniz ed section [...] Care Teams (unrecognized sec tion and content) 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 [employer] provides no warranty or guarantee of the accuracy or completeness of information in this document.
[2025-05-02 12:18] LABS: Hematocrit 46.7 % (42.0-54.0); Hemoglobin 15.4 g/dL (14.0-18.0); Immature Granulocytes Abs Auto 0.01 10^3/uL (0.00-0.03); Immature Granulocytes Pct Auto 0.2 % (0.0-0.5); Lymphocytes Absolute Auto 2.1 10^3/uL (1.2-3.8); Mean Corpuscular HGB Conc 33.0 g/dL (29.9-35.2); Mean Corpuscular Hemoglobin 33.4 pg (25.9-34.0); Mean Corpuscular Volume 101.3 fL (80.0-94.0); Platelet Count 123 10^3/uL (150-450); Red Blood Count 4.61 10^6/uL (4.70-6.10); White Blood Count 5.1 10^3/uL (4.0-11.0)
[2025-05-02 12:26] LABS: Ammonia <10 umol/L (11-32)
[2025-05-02 13:11] LABS: Alanine Aminotransferase 26 U/L (16-63); Albumin Globulin Ratio 1.0; Albumin Level 3.9 g/dL (3.4-5.0); Alkaline Phosphatase 105 U/L (46-116); Anion Gap 13.9; Aspartate Amino Transferase 16 U/L (15-37); Blood Urea Nitrogen 16.0 mg/dL (7.0-18.0); Calcium 9.6 mg/dL (8.5-10.1); Carbon Dioxide 29.4 mmol/L (21.0-32.0); Chloride 105 mmol/L (98-107); Estimated GFR (African America >60 (>=60 mL/min/1.73m^2); Estimated GFR (Non-African Ame >60 (>=60 mL/min/1.73m^2); Free T3 3.26 pg/mL (2.18-3.98); Globulin 3.8 g/dL; Glucose 108 mg/dL (74-106); Magnesium 1.5 mg/dL (1.8-2.4); Potassium 4.3 mmol/L (3.5-5.1); Sodium 144 mmol/L (136-145); Thyroid Stimulating Hormone 0.143 uIU/mL (0.358-3.740); Total Protein 7.7 g/dL (6.4-8.2)
[2025-05-02 14:34] LABS: Folate 21.80 ng/mL (8.60-58.90)
[2025-05-03 04:07] LABS: Vitamin B12 1294 pg/mL (232-1245)
== END 2025-05-02 11:50 | disposition home or self-care (01) ==
LOC: LAB 11:50
PROVIDERS: PCP Family Medicine; Visit Provider Family Medicine
DX: E78.00 Pure hypercholesterolemia, unspecified (principal); E03.9 Hypothyroidism, unspecified; I10 Essential (primary) hypertension; R41.3 Other amnesia; E55.9 Vitamin D deficiency, unspecified
CPT/HCPCS: 36415; 70553; 80053; 82140; 82306; 82607; 82746; 83735; 84436; 84443; 84481; 85025; 85652; 86140; A9575